=== PATIENT | female | born 1985 | race Caucasian/White ===

== ENCOUNTER 2020-07-18 00:31 | Emergency (ER) | payer OTHER, SELFPAY ==
[2020-07-18 00:34] VITALS: BP 154/91; PULSE 85; RESP 18; TEMP 36.4; O2SAT 98; BMI 33.5
[2020-07-18 00:55] LABS: MANUAL DIFF FLAG NO
[2020-07-18 00:56] LABS: Eosinophils Percent Auto 0.4 % (0-4); Hematocrit 38.7 % (37-47); Hemoglobin 12.6 g/dl (12.0-16.0); Imm Gran Abs Auto 0.01 X10*3/uL (0.00-0.03); Imm Gran Pct Auto 0.2 % (0.0-0.4); Lymphocytes Absolute Auto 0.7 X10*3/uL (1.2-4.9); Lymphocytes Percent Auto 14.4 % (20-40); Mean Corpuscular HGB Conc 32.6 g/dl (31.0-35.0); Mean Corpuscular Hemoglobin 29.8 pg (27.0-33.0); Mean Corpuscular Volume 91.5 fL (80-98); Mean Platelet Volume 9.7 fL (9.4-12.3); Monocytes Absolute Auto 0.3 X10*3/uL (0.1-1.2); Monocytes Percent Auto 5.3 % (2-11); Neutrophils Absolute Auto 3.9 X10*3/uL (2.0-8.3); Neutrophils Percent Auto 79.7 % (45-73); Platelet Count 303 X10*3/uL (160-400); Red Blood Count 4.23 X10*6/uL (4.20-5.50); Red Cell Distribution Width 14.9 % (11.0-16.0); White Blood Count 4.9 X10*3/uL (4.8-10.8)
[2020-07-18 01:24] LABS: Alanine Aminotransferase 21 U/L (0-31); Albumin Level 4.2 g/dL (3.5-5.0); Alkaline Phosphatase 97 U/L (39-117); Anion Gap 14 (12-20); Aspartate Amino Transferase 26 U/L (5-31); Bilirubin Total 0.7 mg/dL (0.0-1.0); Blood Urea Nitrogen 7 mg/dL (9-16); Calcium 8.8 mg/dL (8.4-10.2); Carbon Dioxide 20 mmol/L (22-29); Chloride 107 mmol/L (96-108); Creatinine Clr Calc Pharmacy 94.7; Estimated Glomerular Filt Rate > 60; Glucose Random 129 mg/dL (60-115); Lipase 35 U/L (8-78); Potassium 3.4 mmol/l (3.3-5.1); Sodium 138 mmol/L (135-145); Total Protein 7.5 g/dL (6.5-8.0)
--- NOTE | 2020-07-18 03:17 | ED_ITS ---
HPI - Female Genitourinary General Chief complaint: Urogenital-Female Stated complaint: Kidney Pain Time Seen by Provider: 07/18/20 02:06 Source: patient Mode of arrival: ambulatory History of Present Illness HPI Narrative: This is a 35-year-old female who states that she has had lower back pain that radiates anteriorly in a bilateral distribution and comes across the tops of her legs. She denies any fevers, chills but states that she has had diarrhea as well as some nausea and vomiting. Otherwise, she states that she has been unable to urinate since yesterday. She otherwise denies any trauma. Related Data Allergies Allergy/AdvReac Type Severity Reaction Status Date / Time osborne [CHERRIES] Allergy Intermediate UNKNOWN Verified 07/18/20 00:33 red dye [RED DYE] AdvReac Mild DIARRHEA Verified 07/18/20 00:33 Review of Systems Review of Systems: Pertinent positives and negatives as stated in the HPI 10 point review of systems otherwise negative. PMFSH Past Medical History Source: nursing notes reviewed Medical History ADHD Bipolar 1 disorder Depression Hypertension Surgical History Hx of cholecystectomy Status post cholecystectomy Social History Social History Smoking Status: Never smoker Use of substances other than those prescribed or required for medical reasons: No Advance Directives: No Advance Directives Information Provided: No Physical Exam Vital Signs: Vital Signs: Last Vital Signs Temp 97.5 F 07/18/20 07:08 Pulse 75 07/18/20 07:08 Resp 20 07/18/20 07:08 BP 134/87 07/18/20 07:08 Pulse Ox 99 07/18/20 07:08 Body Mass Index 33.5 VITAL SIGNS: Reviewed. GENERAL: Well developed, well nourished, in no acute distress. HEAD: Normocephalic/atraumatic, EYES: PERRLA, EOMI intact without pain, no nystagmus/pallor/icterus noted EARS: Ext canals without abnormality, TMs non-bulging and non-erythematous NOSE: Nares patent bilateral OROPHARYNX: no oral lesions noted, posterior pharynx clear and non-erythematous without noted tonsillar enlargement/erythema/exudates NECK: Supple, no adenopathy LUNGS: Normal breath sounds. No adventitious sounds or accessory muscle use. SpO2<98> CARDIOVASCULAR: Regular rate and rhythm without noted murmurs, no JVD or lower extremity edema. ABDOMEN: Soft, mild tenderness on the flanks but no rebound, non-distended with bowel sounds. No rigidity. No guarding. No palpable masses or hernias noted NEUROLOGIC: Alert and oriented x 4. Course Course Course Narrative: This is a 35-year-old female with history and clinical presentation suggestive of possible renal colic versus UTI but doubt appendicitis or diverticulitis. On review of all investigations there are no acute findings suggesting systemic infection or anemia and although urinalysis shows the presence of blood patient is currently on her menstrual cycle and CT scan is negative for any intra- abdominal pathologies. The results and findings were discussed with patient at bedside and she was discharged home in stable condition with presumptive acute on chronic lower back pain exacerbation. [facility] - Female Genitourinary Lab Data Result diagrams: 07/18/20 00:49 07/18/20 00:49 Labs: Lab Results 07/18/20 07/18/20 07/18/20 Range/Units 00:49 00:49 00:49 WBC 4.9 (4.8-10.8) X10*3/uL RBC 4.23 (4.20-5.50) X10*6/uL Hgb 12.6 (12.0-16.0) g/dl Hct 38.7 (37-47) % MCV 91.5 (80-98) fL MCH 29.8 (27.0-33.0) pg MCHC 32.6 (31.0-35.0) g/dl RDW 14.9 (11.0-16.0) % Plt Count 303 (160-400) X10*3/uL MPV 9.7 (9.4-12.3) fL Immature Gran % (Auto) 0.2 (0.0-0.4) % Neut % (Auto) 79.7 H (45-73) % Lymph % (Auto) 14.4 L (20-40) % [place] % (Auto) 5.3 (2-11) % Eos % (Auto) 0.4 (0-4) % Baso % (Auto) 0.0 (0-2) % Lymph # (Auto) 0.7 L (1.2-4.9) X10*3/uL [place] # (Auto) 0.3 (0.1-1.2) X10*3/uL Eos # (Auto) 0.0 (0.0-0.4) X10*3/uL Baso # (Auto) 0.0 (0.0-0.2) X10*3/uL Abs Immat Gran (auto) 0.01 (0.00-0.03) X10*3/uL Absolute Neuts (auto) 3.9 (2.0-8.3) X10*3/uL Absolute Nucleated RBC 0.000 (0.0-0.012) X10*3/uL Nucleated RBC % (auto) 0.0 (0.0-0.2) /100WBC Hold Blue Top SEE NOTE Sodium 138 (135-145) mmol/L Potassium 3.4 (3.3-5.1) mmol/l Chloride 107 (96-108) mmol/L Carbon Dioxide 20 L (22-29) mmol/L Anion Gap 14 (12-20) BUN 7 L (9-16) mg/dL Creatinine 0.86 (0.5-1.4) mg/dL Estim Creat Clear Calc 94.7 Estimated GFR > 60 Random Glucose 129 H (60-115) mg/dL Calcium 8.8 (8.4-10.2) mg/dL Total Bilirubin 0.7 (0.0-1.0) mg/dL AST 26 (5-31) U/L ALT 21 (0-31) U/L Alkaline Phosphatase 97 (39-117) U/L Total Protein 7.5 (6.5-8.0) g/dL Albumin 4.2 (3.5-5.0) g/dL Lipase 35 (8-78) U/L Beta HCG, Quant < 2 mIU/mL Urine Color Urine Appearance Urine pH (5.0-8.0) Ur Specific [place] (1.005-1.025) Urine Protein (NEG-TRACE) MG/DL Urine Glucose (UA) (NEG) MG/DL Urine Ketones (NEG) MG/DL Urine Blood (NEG) Urine Nitrite (NEG) Ur Leukocyte Esterase (NEG) Urine RBC (0) /HPF Urine WBC (0-4) /HPF Ur Squamous Epith Cells /LPF Urine Bacteria /LPF Urine Test (NEGATIVE) 07/18/20 Range/Units 06:14 WBC (4.8-10.8) X10*3/uL RBC (4.20-5.50) X10*6/uL Hgb (12.0-16.0) g/dl Hct (37-47) % MCV (80-98) fL MCH (27.0-33.0) pg MCHC (31.0-35.0) g/dl RDW (11.0-16.0) % Plt Count (160-400) X10*3/uL MPV (9.4-12.3) fL Immature Gran % (Auto) (0.0-0.4) % Neut % (Auto) (45-73) % Lymph % (Auto) (20-40) % [place] % (Auto) (2-11) % Eos % (Auto) (0-4) % Baso % (Auto) (0-2) % Lymph # (Auto) (1.2-4.9) X10*3/uL [place] # (Auto) (0.1-1.2) X10*3/uL Eos # (Auto) (0.0-0.4) X10*3/uL Baso # (Auto) (0.0-0.2) X10*3/uL Abs Immat Gran (auto) (0.00-0.03) X10*3/uL Absolute Neuts (auto) (2.0-8.3) X10*3/uL Absolute Nucleated RBC (0.0-0.012) X10*3/uL Nucleated RBC % (auto) (0.0-0.2) /100WBC Hold Blue Top Sodium (135-145) mmol/L Potassium (3.3-5.1) mmol/l Chloride (96-108) mmol/L Carbon Dioxide (22-29) mmol/L Anion Gap (12-20) BUN (9-16) mg/dL Creatinine (0.5-1.4) mg/dL Estim Creat Clear Calc Estimated GFR Random Glucose (60-115) mg/dL Calcium (8.4-10.2) mg/dL Total Bilirubin (0.0-1.0) mg/dL AST (5-31) U/L ALT (0-31) U/L Alkaline Phosphatase (39-117) U/L Total Protein (6.5-8.0) g/dL Albumin (3.5-5.0) g/dL Lipase (8-78) U/L Beta HCG, Quant mIU/mL Urine Color DARK YELLOW Urine Appearance HAZY Urine pH 7.0 (5.0-8.0) Ur Specific [place] 1.015 (1.005-1.025) Urine Protein 1+ H (NEG-TRACE) MG/DL Urine Glucose (UA) NEG (NEG) MG/DL Urine Ketones NEG (NEG) MG/DL Urine Blood 3+ H (NEG) Urine Nitrite NEG (NEG) Ur Leukocyte Esterase NEG (NEG) Urine RBC 30-49 H (0) /HPF Urine WBC 0-2 (0-4) /HPF Ur Squamous Epith Cells 1+ /LPF Urine Bacteria TRACE /LPF Urine Test NEGATIVE (NEGATIVE) Discharge Plan Discharge Clinical Impression: Back pain Qualifiers: Back pain location: low back pain Chronicity: acute Back pain laterality: bilateral Sciatica presence: with sciatica Sciatica laterality: bilateral sciatica Qualified Code(s): M54.42 - Lumbago with sciatica, left side Patient Disposition: Home, Self-Care Instructions: Lower Back Exercises (ED), Back Pain (ED), Lumbar Radiculopathy (ED) Additional Instructions: 1. Tylenol 1000 mg, orally, every 6 hours as needed for pain control. Do not exceed 4000 mg within 24 hours. 2. Ibuprofen 400 mg, orally with milk or food, every 6 hours as needed for pain control. You may take this medication with the Tylenol to increase pain control affect. 3. Lidocaine patch, these are available [id number] at every [employer], and apply to the area of maximal tenderness as directed on the outside packaging. 4. Increase fluid hydration especially with water. Referrals: Physician,None [Primary Care Provider] - 2 days (Re-evaluation of lower back pain)
[2020-07-18] MEDS: 0.9 % Sodium Chloride 1,000 ML 999 ML IV (05:00)
--- NOTE | 2020-07-18 05:00 | PC.NURSE ---
20G IV ACCESS ESTABLISHED IN LEFT AC. MEDICATED ORDERED. REPORTS 8 OUT OF 10 BACK PAIN RADIATING TO THE FRONT, BILATERALLY. PATIENT IS CALM/COOPERATIVE, DOES NOT APPEAR TO BE IN ACUTE DISTRESS. WILL CONTINUE TO MONITOR.
[2020-07-18] MEDS: ondansetron HCL 4 MG/2 ML VIAL IVPUSH (05:01)
[2020-07-18] MEDS: Ketorolac Tromethamine 15 MG/ML VIAL IVPUSH (05:01)
[2020-07-18 06:18] LABS: HCG Quantitative < 2 mIU/mL
--- NOTE | 2020-07-18 06:22 | CT_ITS ---
EXAMINATION: CT ABDOMEN AND PELVIS WITH CONTRAST CLINICAL INFORMATION: Lower abdominal pain COMPARISON: 03/05/2020 TECHNIQUE: Multidetector volumetric images were obtained from the superior aspect of the liver through the pubic symphysis following administration 85 mL of Omnipaque 350 intravenous contrast. Sagittal and coronal reformatted images were obtained on the technologist's workstation. Oral contrast: No This CT examination was performed using dose optimization techniques as appropriate, variously including the following: *Automated exposure control *Adjustment of mA and/or kV according to patient size (this includes techniques or standardized protocols for targeted exams where dose is matched to indication/reason for exam; i.e. extremities or head) *Use of iterative reconstruction technique DLP: 803 mGy-cm FINDINGS: LUNG BASES: The visualized lung bases are unremarkable. LIVER, GALLBLADDER, AND BILIARY TREE: The liver is normal in size, shape, and attenuation. No focal hepatic lesion or biliary ductal dilatation is present. Cholecystectomy. PANCREAS: Unremarkable. SPLEEN: Unremarkable. ADRENAL GLANDS: Unremarkable. KIDNEYS AND URETERS: The kidneys are normal in size, shape, and attenuation. No hydronephrosis, hydroureter, or calculi seen. No perinephric stranding. BLADDER: Decompressed with no gross abnormality. GASTROINTESTINAL TRACT: The stomach is unremarkable. Normal caliber small bowel. There is no obstruction. No colonic wall thickening or acute inflammatory change. Normal appendix. No free air. No free fluid. ABDOMINAL WALL: No significant hernia is appreciated. LYMPH NODES: Normal. VASCULAR: Unremarkable. PELVIC VISCERA: The uterus and adnexa are unremarkable. OSSEOUS STRUCTURES: No acute or suspicious osseous abnormality. Mild degenerative changes of the spine. Degenerative changes of both hips. CT/CT abdomen pelvis w con IMPRESSION: There are no acute findings of the abdomen or pelvis. No inflammatory changes. Normal appendix.
--- NOTE | 2020-07-18 06:28 | PC.NURSE ---
URINE SPECIMEN COLLECTED AND SENT TO LAB FOR ANALYSIS. AWAITING RESULTS.
[2020-07-18 06:31] LABS: Glucose Urine UA NEG (NEG); Leukocyte Esterase Urine NEG (NEG); Nitrite Urine NEG (NEG); Specific Gravity - Urine 1.015 (1.005-1.025); Urine Blood 3+ (NEG); Urine Ketones NEG (NEG); Urine Protein 1+ MG/DL (NEG-TRACE)
[2020-07-18 06:33] LABS: Appearance Urine HAZY; Color Urine DARK YELLOW
[2020-07-18 06:42] LABS: Bacteria Urine TRACE /LPF; RBC Urine 30-49 /HPF (0); Squamous Epithelial Cell Urine 1+ /LPF; WBC Urine 0-2 /HPF (0-4)
[2020-07-18] MEDS: iohexoL 350 MG/ML 100 ML INFUS..BTL 85 ML IV (06:44)
--- NOTE | 2020-07-18 06:49 | PC.NURSE ---
PATIENT RETURNED FROM CT SCAN. AWAITING RESULTS. REQUESTING WATER AT THIS TIME, AWARE THAT PATIENT IS NPO UNTIL RESULTS HAVE BEEN REVIEWED BY MD. ALSO REPORTS THAT PAIN IS UNCHANGED DESPITE BEING MEDICATED. WILL CONTINUE TO MONITOR.
[2020-07-18 06:52] LABS: UPreg QC Valid YES; Urine Pregnancy NEGATIVE (NEGATIVE)
[2020-07-18 07:08] VITALS: BP 134/87; PULSE 75; RESP 20; TEMP 36.4; O2SAT 99
[2020-07-18 08:36] VITALS: BP 151/96; PULSE 79; RESP 15; O2SAT 99
== END 2020-07-18 08:45 | disposition home or self-care (01) ==
PROVIDERS: Emergency Provider Student in an Organized Health Care Education/Training Program
DX: M54.42 Lumbago with sciatica, left side (principal); M54.41 Lumbago with sciatica, right side; I10 Essential (primary) hypertension
CPT/HCPCS: 36415; 51798; 74177; 80053; 81001; 81025; 83690; 84702; 85025; 96361; 96374; 96375; 99284; J1885; J2405; Q9967

== ENCOUNTER 2020-10-04 14:23 | Inpatient (IN) | payer OTHER, SELFPAY ==
--- NOTE | ~2020-10-04 | MR_ITS ---
EXAMINATION: MR ABDOMEN WITHOUT CONTRAST CLINICAL INFORMATION: Epigastric pain. Paraduodenal (groove) pancreatitis on recent CT. COMPARISON: CT abdomen and pelvis 10/04/2020, 07/18/2020, 03/05/2020. TECHNIQUE: MR abdomen is performed without gadolinium contrast. Exam performed using MRCP protocol with additional MRCP sequence and maximum intensity projection MIP images generated on the MR workstation and uploaded to PACS. FINDINGS: LUNG BASES: The visualized lung bases are unremarkable. LIVER, GALLBLADDER, AND BILIARY TREE: The liver is normal in size, smooth in contour, and normal in signal. No focal hepatic lesion or biliary ductal dilatation is present. There is mild decreased signal on out of phase imaging consistent with mild hepatic steatosis. There has been prior cholecystectomy. The common hepatic duct and common bile duct are normal in caliber and show no intraluminal filling defect, extrinsic compression, stricture, or displacement. There is smooth distal tapering of the common duct. PANCREAS: Normal in size and contour and signal. No pancreatic ductal distention. There is high signal in the groove between the descending duodenum and pancreatic head with some trace fluid in the right anterior pararenal retroperitoneal space consistent with recent CT. No interval loculated fluid collection. SPLEEN: Unremarkable. ADRENAL GLANDS: Unremarkable. KIDNEYS AND URETERS: The kidneys are normal in size and shape. No hydronephrosis. No perinephric stranding. GASTROINTESTINAL TRACT: No bowel obstruction. Duodenum shows no focal wall thickening. ABDOMINAL WALL: No significant hernia is appreciated. LYMPH NODES: No lymphadenopathy. VASCULAR: Unremarkable. OSSEOUS STRUCTURES: Marrow signal normal. MR/MR MRCP IMPRESSION: 1. Signal and fluid between descending duodenum and pancreatic head with extension into the right anterior pararenal retroperitoneal space consistent with recent CT, likely mild groove pancreatitis. 2. Prior cholecystectomy. No intrahepatic or extrahepatic ductal dilatation or choledocholithiasis. No pancreatic ductal distention.
--- NOTE | ~2020-10-04 | CT_ITS ---
EXAMINATION: CT ABDOMEN AND PELVIS WITH CONTRAST CLINICAL INFORMATION: Epigastric pain. Question of gallstone pancreatitis. COMPARISON: 07/18/2020 TECHNIQUE: Multidetector volumetric images were obtained from the superior aspect of the liver through the pubic symphysis following administration 85 mL of Omnipaque 350 intravenous contrast. Sagittal and coronal reformatted images were obtained on the technologist's workstation. Oral contrast: No This CT examination was performed using dose optimization techniques as appropriate, variously including the following: *Automated exposure control *Adjustment of mA and/or kV according to patient size (this includes techniques or standardized protocols for targeted exams where dose is matched to indication/reason for exam; i.e. extremities or head) *Use of iterative reconstruction technique DLP: 748 mGy-cm FINDINGS:c LUNG BASES: The visualized lung bases are unremarkable. LIVER, GALLBLADDER, AND BILIARY TREE: The liver is normal in size, shape, and attenuation. No focal hepatic lesion or biliary ductal dilatation is present. Common bile duct measures up to 7 mm, within normal limits status post cholecystectomy. The duct tapers smoothly to the ampulla. PANCREAS: There is mild fat stranding centered at the pancreaticoduodenal groove. Remainder the pancreas is unremarkable. No acute necrotic collection or peripancreatic fluid collections. SPLEEN: Unremarkable. ADRENAL GLANDS: Unremarkable. KIDNEYS AND URETERS: The kidneys are normal in size, shape, and attenuation. No hydronephrosis, hydroureter, or calculi seen. No perinephric stranding. BLADDER: Unremarkable. GASTROINTESTINAL TRACT: The small and large bowel are unremarkable. The appendix is unremarkable. ABDOMINAL WALL: No significant hernia is appreciated. LYMPH NODES: Normal. VASCULAR: Unremarkable. PELVIC VISCERA: Unremarkable. OSSEOUS STRUCTURES: Unremarkable. CT/CT abdomen pelvis w con IMPRESSION: * Mild paraduodenal (groove) pancreatitis. * No radiopaque stones within the biliary tree. * Cholecystectomy, with expected slight prominence of the common bile duct, which tapers smoothly to the ampulla.
[2020-10-04 15:12] VITALS: BP 142/87; PULSE 83; RESP 20; TEMP 36.7; O2SAT 100; BMI 32.4
[2020-10-04 16:00] VITALS: BP 142/100; PULSE 74; RESP 16; TEMP 37.1; O2SAT 99
[2020-10-04 16:22] LABS: MANUAL DIFF FLAG NO
[2020-10-04 16:27] LABS: Basophils Percent Auto 0.2 % (0-2); Eosinophils Percent Auto 0.7 % (0-4); Hematocrit 34.8 % (37-47); Hemoglobin 11.5 g/dl (12.0-16.0); Imm Gran Abs Auto 0.02 X10*3/uL (0.00-0.03); Imm Gran Pct Auto 0.5 % (0.0-0.4); Lymphocytes Absolute Auto 1.3 X10*3/uL (1.2-4.9); Lymphocytes Percent Auto 28.9 % (20-40); Mean Corpuscular Hemoglobin 31.3 pg (27.0-33.0); Mean Corpuscular Volume 94.8 fL (80-98); Mean Platelet Volume 9.8 fL (9.4-12.3); Monocytes Absolute Auto 0.2 X10*3/uL (0.1-1.2); Monocytes Percent Auto 4.8 % (2-11); Neutrophils Absolute Auto 2.8 X10*3/uL (2.0-8.3); Neutrophils Percent Auto 64.9 % (45-73); Platelet Count 249 X10*3/uL (160-400); Red Blood Count 3.67 X10*6/uL (4.20-5.50); Red Cell Distribution Width 16.3 % (11.0-16.0); White Blood Count 4.4 X10*3/uL (4.8-10.8)
[2020-10-04 16:52] LABS: Alanine Aminotransferase 81 U/L (0-31); Alkaline Phosphatase 116 U/L (39-117); Anion Gap 13 (12-20); Aspartate Amino Transferase 549 U/L (5-31); Blood Urea Nitrogen 9 mg/dL (9-16); Calcium 8.3 mg/dL (8.4-10.2); Carbon Dioxide 22 mmol/L (22-29); Chloride 105 mmol/L (96-108); Estimated Glomerular Filt Rate > 60; Glucose Random 108 mg/dL (60-115); Potassium 3.5 mmol/L (3.3-5.1); Sodium 136 mmol/L (135-145); Total Protein 7.2 g/dL (6.5-8.0)
[2020-10-04 18:03] LABS: Glucose Urine UA NEG (NEG); Leukocyte Esterase Urine NEG (NEG); Nitrite Urine NEG (NEG); Specific Gravity - Urine >= 1.030 (1.005-1.025); Urine Blood NEG (NEG); Urine Ketones NEG (NEG); Urine Protein TRACE MG/DL (NEG-TRACE)
[2020-10-04 18:06] LABS: Appearance Urine CLEAR; Color Urine DARK YELLOW
[2020-10-04 18:10] LABS: HCG Quantitative < 2 mIU/mL
[2020-10-04] MEDS: ondansetron HCL 4 MG/2 ML VIAL IVPUSH ×2 (18:16→21:33)
[2020-10-04] MEDS: Famotidine/PF 20 MG/2 ML VIAL IVPUSH (18:16)
[2020-10-04] MEDS: 0.9 % Sodium Chloride 1,000 ML 999 ML IV (18:17)
[2020-10-04 18:34] LABS: Lipase 94 U/L (8-78)
[2020-10-04 18:53] VITALS: BP 124/77; PULSE 73; RESP 16; O2SAT 100
[2020-10-04] MEDS: Morphine Sulfate 4 MG/ML CARTRIDGE IVPUSH ×2 (18:56→20:43)
--- NOTE | 2020-10-04 19:36 | ED_ITS ---
HPI - Abdominal Pain General Chief Complaint: Abdominal Pain Stated Complaint: STOMACH AND BACK PAIN Time Seen by Provider: 10/04/20 17:46 Source: patient Mode of arrival: ambulatory Limitations: no limitations History of Present Illness HPI narrative: Patient presents to ED for abdominal pain radiating to the back. Patient states pain in the upper gastric area with nausea and vomiting. Patient states no fever or chills. Patient states having symptoms for 2 days. MD elicited complaint: abdominal pain Related Data Allergies Allergy/AdvReac Type Severity Reaction Status Date / Time osborne [CHERRIES] Allergy Intermediate UNKNOWN Verified 07/18/20 00:33 red dye [RED DYE] AdvReac Mild DIARRHEA Verified 07/18/20 00:33 Review of Systems Review of Systems Yes all other systems are reviewed and are negative Constitutional: Reports as per HPI and Reports no additional constitutional complaints Eyes: Reports as per HPI and Reports no additional eye complaints Reports system reviewed and no additional complaints, except as documented and Reports as per HPI Cardiovascular: Reports as per HPI and Reports no additional cardiovascular complaints Respiratory: Reports as per HPI and Reports no additional respiratory complaints Gastrointestinal: Reports as per HPI, Reports no additional gastrointestinal complaints, Reports abdominal pain, Reports nausea and Reports vomiting Genitourinary: Reports no additional female genitourinary complaints and Reports as per HPI Musculoskeletal: Reports no additional musculoskeletal complaints and Reports as per HPI Reports system reviewed and no additional complaints, except as documented and Reports as per HPI Psychiatric: Reports no additional psychiatric complaints and Reports as per HPI Physical Exam Vital Signs: Vital Signs: Last Vital Signs Temp 97.9 F 10/04/20 20:23 Pulse 77 10/04/20 20:43 Resp 18 10/04/20 20:43 BP 158/81 H 10/04/20 20:43 Pulse Ox 98 10/04/20 20:43 Body Mass Index 32.4 Const: General: cooperative, healthy appearing, comfortable, no acute distress, well developed, alert, awake, Physically active and acute distress Orientation/consciousness: patient oriented x3 HENMT: Head: Yes normal to inspection, Yes No palpable skull fracture present, Yes normocephalic, Yes atraumatic, Yes abrasion, No Campbell's sign, No contusion, No cranial bruits, No hematoma, No laceration, No occipital foramen tenderness, No palpable skull fracture, No raccoon eyes, No scalp lesion, No scalp tend erness, No Temporal artery tenderness present and No periorbital ecchymosis Eyes: General: appearance normal, both eyes and all related structures Neck: Neck: Yes normal visual inspection, Yes full ROM, Yes no lymphadenopathy, Yes no meningeal signs, Yes trachea midline, Yes supple and No tender Chest: Chest palpation & inspection: normal inspection of the chest and normal palpation of entire chest wall Breast/axilla inspection: normal inspection of the breasts Resp: Effort & Inspection: normal respiratory effort and able to speak in c omplete sentences Auscultation: clear to auscultation bilaterally Cardio: Jugular venous distension: no JVD Heart sounds: S1 normal heart sound present and S2 normal heart sound present GI: Inspection: Yes normal to inspection Palpation (GI): Soft to palpation, not firm, Tenderness to palpation present (GI) in the epigastrum, no guarding and not rigid : General: No CVA tenderness and Yes no CVA tenderness Back/Spine/Pelvis: Back: no CVA tenderness, No CVA tenderness and No back tenderness Skin: General skin exam: no rashes or lesions noted and elasticity normal Neuro: General: patient oriented x3, no meningeal signs and CN's II-XI intact bilaterally Cranial nerves: Yes CN's II-XII intact bilaterally Extrem: General: Yes normal to inspection and Yes full ROM Psych: Appearance: grossly normal, well kempt and not disheveled Course Course Course Narrative: Patient will have labs evaluate for possible gallstones/pancreatitis. Patient have fluids and Zofran and pain medication. Reevaluation(s) Reevaluation #1: Labs show elevated liver and lipase. Will send patient for CT scan to evaluate for possible gallstone pancreatitis. Patient given morphine for pain Reevaluation #2: CT scan shows pancreatitis. Patient's pain did not improve after 8 mg of morphine. Discussed case with hospitalist who accepted the case for patient to be admitted for pain control due to pancreatitis MDM - Abdominal Pain MDM Narrative Medical decision making narrative: Pancreatitis Lab Data Result diagrams: 10/04/20 16:15 10/04/20 16:15 Labs: Lab Results 10/04/20 10/04/20 10/04/20 Range/Units 16:15 16:15 16:15 WBC 4.4 L (4.8-10.8) X10*3/uL RBC 3.67 L (4.20-5.50) X10*6/uL Hgb 11.5 L (12.0-16.0) g/dl Hct 34.8 L (37-47) % MCV 94.8 (80-98) fL MCH 31.3 (27.0-33.0) pg MCHC 33.0 (31.0-35.0) g/dl RDW 16.3 H (11.0-16.0) % Plt Count 249 (160-400) X10*3/uL MPV 9.8 (9.4-12.3) fL Immature Gran % (Auto) 0.5 H (0.0-0.4) % Neut % (Auto) 64.9 (45-73) % Lymph % (Auto) 28.9 (20-40) % [place] % (Auto) 4.8 (2-11) % Eos % (Auto) 0.7 (0-4) % Baso % (Auto) 0.2 (0-2) % Lymph # (Auto) 1.3 (1.2-4.9) X10*3/uL [place] # (Auto) 0.2 (0.1-1.2) X10*3/uL Eos # (Auto) 0.0 (0.0-0.4) X10*3/uL Baso # (Auto) 0.0 (0.0-0.2) X10*3/uL Abs Immat Gran (auto) 0.02 (0.00-0.03) X10*3/uL Absolute Neuts (auto) 2.8 (2.0-8.3) X10*3/uL Absolute Nucleated RBC 0.000 (0.0-0.012) X10*3/uL Nucleated RBC % (auto) 0.0 (0.0-0.2) /100WBC Hold Blue Top SEE NOTE Sodium 136 (135-145) mmol/L Potassium 3.5 (3.3-5.1) mmol/L Chloride 105 (96-108) mmol/L Carbon Dioxide 22 (22-29) mmol/L Anion Gap 13 (12-20) BUN 9 (9-16) mg/dL Creatinine 0.77 (0.5-1.4) mg/dL Estim Creat Clear Calc 108.0 Estimated GFR > 60 Random Glucose 108 (60-115) mg/dL Calcium 8.3 L (8.4-10.2) mg/dL Total Bilirubin 1.0 (0.0-1.0) mg/dL AST 549 H (5-31) U/L ALT 81 H (0-31) U/L Alkaline Phosphatase 116 (39-117) U/L Total Protein 7.2 (6.5-8.0) g/dL Albumin 4.0 (3.5-5.0) g/dL Lipase 94 H (8-78) U/L Beta HCG, Quant < 2 mIU/mL Urine Color Urine Appearance Urine pH (5.0-8.0) Ur Specific [place] (1.005-1.025) Urine Protein (NEG-TRACE) MG/DL Urine Glucose (UA) (NEG) MG/DL Urine Ketones (NEG) MG/DL Urine Blood (NEG) Urine Nitrite (NEG) Ur Leukocyte Esterase (NEG) 10/04/20 Range/Units 17:53 WBC (4.8-10.8) X10*3/uL RBC (4.20-5.50) X10*6/uL Hgb (12.0-16.0) g/dl Hct (37-47) % MCV (80-98) fL MCH (27.0-33.0) pg MCHC (31.0-35.0) g/dl RDW (11.0-16.0) % Plt Count (160-400) X10*3/uL MPV (9.4-12.3) fL Immature Gran % (Auto) (0.0-0.4) % Neut % (Auto) (45-73) % Lymph % (Auto) (20-40) % [place] % (Auto) (2-11) % Eos % (Auto) (0-4) % Baso % (Auto) (0-2) % Lymph # (Auto) (1.2-4.9) X10*3/uL [place] # (Auto) (0.1-1.2) X10*3/uL Eos # (Auto) (0.0-0.4) X10*3/uL Baso # (Auto) (0.0-0.2) X10*3/uL Abs Immat Gran (auto) (0.00-0.03) X10*3/uL Absolute Neuts (auto) (2.0-8.3) X10*3/uL Absolute Nucleated RBC (0.0-0.012) X10*3/uL Nucleated RBC % (auto) (0.0-0.2) /100WBC Hold Blue Top Sodium (135-145) mmol/L Potassium (3.3-5.1) mmol/L Chloride (96-108) mmol/L Carbon Dioxide (22-29) mmol/L Anion Gap (12-20) BUN (9-16) mg/dL Creatinine (0.5-1.4) mg/dL Estim Creat Clear Calc Estimated GFR Random Glucose (60-115) mg/dL Calcium (8.4-10.2) mg/dL Total Bilirubin (0.0-1.0) mg/dL AST (5-31) U/L ALT (0-31) U/L Alkaline Phosphatase (39-117) U/L Total Protein (6.5-8.0) g/dL Albumin (3.5-5.0) g/dL Lipase (8-78) U/L Beta HCG, Quant mIU/mL Urine Color DARK YELLOW Urine Appearance CLEAR Urine pH 6.0 (5.0-8.0) Ur Specific [place] >= 1.030 H (1.005-1.025) Urine Protein TRACE (NEG-TRACE) MG/DL Urine Glucose (UA) NEG (NEG) MG/DL Urine Ketones NEG (NEG) MG/DL Urine Blood NEG (NEG) Urine Nitrite NEG (NEG) Ur Leukocyte Esterase NEG (NEG) Discharge Plan Discharge Clinical Impression: Pancreatitis Patient Disposition: Admitted As Inpatient [facility] Past Medical History Medical History ADHD Bipolar 1 disorder Depression Hypertension Surgical History Hx of cholecystectomy Status post cholecystectomy Social History Social History Smoking Status: Former smoker Use of substances other than those prescribed or required for medical reasons: No Advance Directives: No Advance Directives Information Provided: No
[2020-10-04 20:23] VITALS: BP 134/78; PULSE 78; RESP 18; TEMP 36.6; O2SAT 100
[2020-10-04 20:43] VITALS: BP 158/81; PULSE 77; RESP 18; O2SAT 98
--- NOTE | 2020-10-04 21:30 | PM.IMHP ---
History of Present Illness Date of Service: 10/04/20 Chief Complaint: epigastric pain 35 female with past medical history of anxiety, depression, bipolar, ADHD, hypertension, history of cholecystectomy presented to the hospital with a chief complaint upper abdominal pain past 2 days associated nausea and vomiting. Abdominal pain was in nature. Denies any fever chills cough. Denies any diarrhea. Denies any chest pain palpitations lightheadedness dizziness. Denies any new medications. Denies alcohol use. Review of all other systems is negative except mentioned above ER course: Per ER team patient noted to have epigastric tenderness, CT scan showed mildly dilated CBD, post cholecystectomy changes, pancreatitis. Given pain medications. Admitted to the hospital for further management. [facility] Medical History ADHD Bipolar 1 disorder Depression Hypertension Surgical History Hx of cholecystectomy Status post cholecystectomy Social History Household Members: Significant Other and Children Housing: Apartment Do you presently have visiting nurse or other home services: No Smoking Status: Former smoker Smoked in Last 30 Days: No Patient Interested in Nicotine Replacement: No Patient Given Instructions on How to Stop Smoking: No Second Hand Smoke Exposure: No Use of substances other than those prescribed or required for medical reasons: No Currently Displaying Signs/Symptoms of Drug Intoxication Withdrawal: No Have you been hit, kicked, punched, or otherwise hurt by someone within the past year? If so, by whom?: No Do you feel safe in your current relationship?: Yes Is there a partner from a previous relationship who is making you feel unsafe now?: No Are you made to feel afraid or neglected: No Advance Directives: No Advance Directives Information Provided: No Do you have thoughts of harming others: None Do you have a plan to hurt others: No Plan Recently lost weight without trying: No Meds Allergies Allergy/AdvReac Type Severity Reaction Status Date / Time osborne [CHERRIES] Allergy Intermediate UNKNOWN Verified 07/18/20 00:33 red dye [RED DYE] AdvReac Mild DIARRHEA Verified 07/18/20 00:33 Active Medications: Current Medications Generic Name Dose Route Start Last Admin Trade Name Freq PRN Reason Stop Dose Admin Pharmacy Consult 1 each 10/04/20 21:29 Consult Rx Perform Med Rec MISCELLANE ONCE PRN Consult order Physical Exam Vital Signs and Narrative: Vital Signs: Last Vital Signs Temp 97.9 F 10/04/20 20:23 Pulse 77 10/04/20 20:43 Resp 18 10/04/20 20:43 BP 158/81 H 10/04/20 20:43 Pulse Ox 98 10/04/20 20:43 Body Mass Index 32.4 Gen: Appears be in mild distress secondary to pain HEENT: NCAT, SERGIO, EOMI, Moist mucosa. Pulmonary: Vesicular breath sounds, fair air entry; no wheezing CVS: Normal S1-S2 Abdomen: BS+, Soft, Nontender Extremities: Warm well perfused; PPP Neuro: Alert and awake. grossly nonfocal Results Labs CBC and Chem 7: 10/06/20 04:57 10/07/20 06:53 Labs: Laboratory Results - last 24 hr 10/04/20 10/04/20 10/04/20 16:15 16:15 16:15 MCV 94.8 MCH 31.3 MCHC 33.0 RDW 16.3 H Plt Count 249 MPV 9.8 Immature Gran % (Auto) 0.5 H Neut % (Auto) 64.9 Lymph % (Auto) 28.9 [place] % (Auto) 4.8 Eos % (Auto) 0.7 Baso % (Auto) 0.2 Lymph # (Auto) 1.3 [place] # (Auto) 0.2 Eos # (Auto) 0.0 Baso # (Auto) 0.0 Abs Immat Gran (auto) 0.02 Absolute Neuts (auto) 2.8 Absolute Nucleated RBC 0.000 Nucleated RBC % (auto) 0.0 Hold Blue Top SEE NOTE Anion Gap 13 Estim Creat Clear Calc 108.0 Estimated GFR > 60 Random Glucose 108 Calcium 8.3 L Total Bilirubin 1.0 AST 549 H ALT 81 H Alkaline Phosphatase 116 Total Protein 7.2 Albumin 4.0 Lipase 94 H Beta HCG, Quant < 2 Urine Color Urine Appearance Urine pH Ur Specific [place] Urine Protein Urine Glucose (UA) Urine Ketones Urine Blood Urine Nitrite Ur Leukocyte Esterase 10/04/20 17:53 MCV MCH MCHC RDW Plt Count MPV Immature Gran % (Auto) Neut % (Auto) Lymph % (Auto) [place] % (Auto) Eos % (Auto) Baso % (Auto) Lymph # (Auto) [place] # (Auto) Eos # (Auto) Baso # (Auto) Abs Immat Gran (auto) Absolute Neuts (auto) Absolute Nucleated RBC Nucleated RBC % (auto) Hold Blue Top Anion Gap Estim Creat Clear Calc Estimated GFR Random Glucose Calcium Total Bilirubin AST ALT Alkaline Phosphatase Total Protein Albumin Lipase Beta HCG, Quant Urine Color DARK YELLOW Urine Appearance CLEAR Urine pH 6.0 Ur Specific [place] >= 1.030 H Urine Protein TRACE Urine Glucose (UA) NEG Urine Ketones NEG Urine Blood NEG Urine Nitrite NEG Ur Leukocyte Esterase NEG Imaging Radiologist's Impressions: Impressions Abdomen/Pelvis CT 10/04/20 18:45 IMPRESSION: * Mild paraduodenal (groove) pancreatitis. * No radiopaque stones within the biliary tree. * Cholecystectomy, with expected slight prominence of the common bile duct, which tapers smoothly to the ampulla. Assessment and Plan (1) Pancreatitis: Status: Resolved 35-year-old female with a past medical history of anxiety, depression, ADHD, bipolar presented to the hospital with a chief complaint of abdominal pain. Noted to have pancreatitis. Acute pancreatitis: Unclear etiology. Patient denies any recent new medications. Denies alcohol use. CT scan showed no gallstones. Patient had a history of a cholecystectomy. CBD mildly dilated. Pain control IV fluids NPO Transaminitis: Will also check acute hepatitis panel; CT findings as mentioned above. GI consult for further recommendations. Hypertension: Patient currently denies any medications. Also added by the pain. Will continue to monitor for now. If not improving will consider antihypertensives eventually Nausea/vomiting: Supportive care. IV fluids. Zofran p.r.n.. Home medications: Patient was on lithium, Adderall, trazodone but reports has not been taking for the past 9 months. DVT prophylaxis: Subcu heparin Code status: Full code
[2020-10-04 22:00] LABS: COVID-19 Test Negative (Negative)
[2020-10-04 22:18] VITALS: BP 130/81; PULSE 77; RESP 16; TEMP 36.7; O2SAT 98
[2020-10-04] MEDS: HYDROmorphone HCl 0.5 MG/0.5 ML SYRINGE IVPUSH (22:37)
[2020-10-04] MEDS: Dextrose 5 % and 0.45 % NaCl 1,000 ML 100 ML IVCONT (22:38)
--- NOTE | 2020-10-05 00:28 | PC.NURSE ---
Pt requesting pain medication and food. Diet upgraded to clear liquid diet by hospitalist. This RN spoke with hospitalist regarding patient's request for pain medication, and states that she can be medicated at 2am for pain, as ordered. Dilaudid 0.5mg to be given Q4H for pain management, no additional pain medications to be given. Pt given green jell-o, and cranberry juice for clear-liquid diet, okayed by hospitalist.
[2020-10-05] MEDS: Heparin Sodium,Porcine 5,000 UNIT/ML VIAL 5000 UNIT SUBCUT ×4 (00:54→21:05)
[2020-10-05] MEDS: 0.9 % Sodium Chloride Flush 3 ML SYRINGE IVFLUSH ×2 (00:55→16:45)
[2020-10-05] MEDS: ondansetron HCL 4 MG/2 ML VIAL IVPUSH ×3 (02:12→14:38)
[2020-10-05] MEDS: HYDROmorphone HCl 0.5 MG/0.5 ML SYRINGE IVPUSH ×5 (02:12→19:41)
[2020-10-05 06:28] VITALS: RESP 18
[2020-10-05 06:29] LABS: MANUAL DIFF FLAG NO
--- NOTE | 2020-10-05 06:39 | PC.NURSE ---
Patient's abdomen appears to be more distended compared to earlier this shift. Pt medicated with Dilaudid 0.5mg Q4H for pain. Hospitalist notified regarding assessment changes and encouraged to see patient for re-evaluation and possible GI consult. Plan for evaluation later this shift. Will continue to monitor.
[2020-10-05 06:48] LABS: Basophils Percent Auto 0.2 % (0-2); Eosinophils Percent Auto 0.5 % (0-4); Hematocrit 31.9 % (37-47); Hemoglobin 10.3 g/dl (12.0-16.0); Imm Gran Abs Auto 0.02 X10*3/uL (0.00-0.03); Imm Gran Pct Auto 0.4 % (0.0-0.4); Lymphocytes Absolute Auto 1.3 X10*3/uL (1.2-4.9); Lymphocytes Percent Auto 23.2 % (20-40); Mean Corpuscular HGB Conc 32.3 g/dl (31.0-35.0); Mean Corpuscular Hemoglobin 30.7 pg (27.0-33.0); Mean Corpuscular Volume 95.2 fL (80-98); Mean Platelet Volume 10.1 fL (9.4-12.3); Monocytes Absolute Auto 0.2 X10*3/uL (0.1-1.2); Monocytes Percent Auto 4.3 % (2-11); Neutrophils Percent Auto 71.4 % (45-73); Platelet Count 196 X10*3/uL (160-400); Red Blood Count 3.35 X10*6/uL (4.20-5.50); White Blood Count 5.6 X10*3/uL (4.8-10.8)
[2020-10-05 07:06] LABS: Alanine Aminotransferase 54 U/L (0-31); Albumin Level 3.4 g/dL (3.5-5.0); Alkaline Phosphatase 103 U/L (39-117); Aspartate Amino Transferase 220 U/L (5-31); Bilirubin Direct 0.7 mg/dL (0.0-0.5); Bilirubin Total 1.9 mg/dL (0.0-1.0); Cholesterol 142 mg/dL; HDL Cholesterol 57 mg/dL; LDL Cholesterol Calculated 34 mg/dl; Total Protein 6.1 g/dL (6.5-8.0); Triglycerides 259 mg/dL
[2020-10-05 07:13] LABS: Anion Gap 10 (12-20); Blood Urea Nitrogen 7 mg/dL (9-16); Carbon Dioxide 26 mmol/L (22-29); Chloride 105 mmol/L (96-108); Creatinine Clr Calc Pharmacy 102.7; Estimated Glomerular Filt Rate > 60; Glucose Random 103 mg/dL (60-115); Potassium 3.3 mmol/L (3.3-5.1); Sodium 138 mmol/L (135-145)
[2020-10-05 07:23] LABS: Calcium 7.7 mg/dL (8.4-10.2)
[2020-10-05 08:00] VITALS: BP 142/90; PULSE 78; RESP 16; TEMP 36.2; O2SAT 99
[2020-10-05] MEDS: Dextrose 5 % and 0.45 % NaCl 1,000 ML 100 ML IVCONT (08:26)
--- NOTE | 2020-10-05 09:54 | MHC.CM.PN ---
met with pt who is independent cm i ntervention is not indicated pt has own transportaion home
--- NOTE | 2020-10-05 14:17 | P.PNIM_ITS ---
Subjective Subjective Date of Service: 10/05/20 Interval History: Patient seen and examined at bedside patient was reporting abdominal pain Constitutional Constitutional: Reports as per HPI and Reports no additional constitutional complaints Eyes Eyes: Reports as per HPI and Reports no additional eye complaints ENT Ears, Nose, Mouth, and Throat: Reports system reviewed and no additional complaints, except as documented and Reports as per HPI Cardiovascular Cardiovascular: Reports as per HPI and Reports no additional cardiovascular complaints Respiratory Respiratory: Reports as per HPI and Reports no additional respiratory complaints Gastrointestinal Gastrointestinal: Reports as per HPI, Reports no additional gastrointestinal complaints, Reports abdominal pain, Reports nausea and Reports vomiting Musculoskeletal Musculoskeletal: Reports no additional musculoskeletal complaints and Reports as per HPI Neurologic Neurologic: Reports system reviewed and no additional complaints, except as documented and Reports as per HPI Psychiatric Psychiatric: Reports no additional psychiatric complaints and Reports as per HPI Physical Exam Vital Signs: Vital Signs: Last Vital Signs Temp 97.1 F 10/05/20 08:00 Pulse 78 10/05/20 08:00 Resp 16 10/05/20 08:00 BP 142/90 H 10/05/20 08:00 Pulse Ox 99 10/05/20 08:00 Body Mass Index 32.4 Const: General: cooperative, healthy appearing, comfortable, no acute distress, well developed, alert, awake, Physically active and acute distress Orientation/consciousness: patient oriented x3 HENMT: Head: Yes normal to inspection, Yes No palpable skull fracture present, Yes normocephalic, Yes atraumatic, Yes abrasion, No Campbell's sign, No contusion, No cranial bruits, No hematoma, No laceration, No occipital foramen tenderness, No palpable skull fracture, No raccoon eyes, No scalp lesion, No scalp tenderness, No Temporal artery tenderness present and No periorbital ecchymosis Eyes: General: appearance normal, both eyes and all related structures Neck: Neck: Yes normal visual inspection, Yes full ROM, Yes no lymphad enopathy, Yes no meningeal signs, Yes trachea midline, Yes supple and No tender Chest: Chest palpation & inspection: normal inspection of the chest and normal palpation of entire chest wall Breast/axilla inspection: normal inspection of the breasts Resp: Effort & Inspection: normal respiratory effort and able to speak in complete sentences Auscultation: clear to auscultation bilaterally Cardio: Jugular venous distension: no JVD Heart sounds: S1 normal heart sound present and S2 normal heart sound present GI: Inspection: Yes normal to inspection Palpation (GI): Soft to palpation, not firm, Tenderness to palpation present (GI) in the epigastrum, no guarding and not rigid : General: No CVA tenderness and Yes no CVA tenderness Back/Spine/Pelvis: Back: no CVA tenderness, No CVA tenderness and No back tenderness Skin: General skin exam: no rashes or lesions noted and elasticity normal Neuro: General: patient oriented x3, no meningeal signs and CN's II-XI intact bilaterally Cranial nerves: Yes CN's II-XII intact bilaterally Extrem: General: Yes normal to inspection and Yes full ROM Psych: Appearance: grossly normal, well kempt and not disheveled Objective Data Current Medications Generic Name Dose Route Start Last Admin Trade Name Freq PRN Reason Stop Dose Admin Heparin Sodium (Porcine) 5,000 unit 10/04/20 22:00 10/05/20 08:43 Heparin Sodium,Porcine 5,000 Unit/Ml Vial SUBCUT 5,000 unit Q8H XUAN Administration Hydromorphone HCl 0.5 mg 10/04/20 21:39 10/05/20 10:30 Hydromorphone Hcl 0.5 Mg/0.5 Ml Syringe IVPUSH 0.5 mg Q4H PRN Administration Pain, Severe (Pain Scale 7-10) Dextrose/Sodium Chloride 1,000 mls @ 100 mls/hr 10/04/20 21:45 10/05/20 08:26 D51/2ns IVCONT 100 mls/hr .Q10H XUAN Administration Ondansetron HCl 4 mg 10/04/20 21:39 10/05/20 06:28 Ondansetron Hcl 4 Mg/2 Ml Vial IVPUSH 4 mg Q8H PRN Administration Nausea and Vomiting Pharmacy Consult 1 each 10/04/20 21:29 Consult Rx Perform Med Rec MISCELLANE ONCE PRN Consult order Sodium Chloride 3 ml 10/05/20 00:00 10/05/20 08:26 0.9 % Sodium Chloride Flush 3 Ml Syringe IVFLUSH Not Given QSHIFT [facility] Labs CBC & Chem 7: 10/05/20 06:19 10/05/20 06:19 Assessment and Plan (1) Pancreatitis: Status: Acute Assessment and Plan: 35-year-old female with a past medical history of anxiety, depression, ADHD, bipolar presented to the hospital with a chief complaint of abdominal pain. Noted to have pancreatitis. Acute pancreatitis etiology not clear CT abdomen shows pancreatitis and normal CBD MRCP shows no CBD dilatation continue IV fluid continue pain management Gi consult pending will check triglyceride level Transaminitis trending down MRCP shows no CBD dilatation will check hepatitis serology monitor LFTs History of mood disorder Patient was on lithium, Adderall, trazodone but reports has not been taking for the past 9 months. as was lactating DVT prophylaxis: Subcu heparin Code status: Full code
[2020-10-05 15:26] VITALS: BP 140/96; PULSE 63; RESP 19; TEMP 36.2; O2SAT 96
--- NOTE | 2020-10-05 17:15 | PM.EVENT ---
Event Note Date of Service: 10/05/20 Event Note: GI Consult-Full note dictated-Hx via patient and EMR. Imp: Apparent acute mild pancreatitis with elevated LFT's of unclear etiology. She had normal LFT's in 06/2020. She is s/p CCY and denies EtoH. Her w/u here has been negative with normal TG's and normal MRCP that was negative for CBD stones nor pancreatic duct abnormalities. Diff dx: Possible passage of a small CBD stone/sludge, R/O autoimmune pancreatitis, treat any component of acid peptic disease. Rec: Check IgG levels with subtypes, PPI, F/U Labs in AM, Supportive care, Advance diet as tolerated. D/W patient. Thanks
[2020-10-05] MEDS: Omeprazole 20 MG CAPSULE.DR PO (17:49)
[2020-10-05 19:10] VITALS: BP 143/92; PULSE 77; RESP 19; TEMP 36.4; O2SAT 99
--- NOTE | 2020-10-05 22:39 | CONS_ITS ---
DATE OF SERVICE: 10/05/2020 REASON FOR CONSULTATION: Abdominal pain and pancreatitis. HISTORY OF PRESENT ILLNESS: The patient is a 35-year-old female, who describes that she was in her usual state of health up until about 1 week ago. Since that time, she has been having fairly frequent and persistent episodes of upper abdominal pain. She describes episodes of vomiting, diarrhea, and abdominal bloating with that. Prior to that, she reports that she had been feeling fairly well, although does have occasional abdominal cramping and discomfort. Due to the persistent symptoms and the severity of the pain, she came to the ER for evaluation and was admitted. She was found have a slight elevation of her pancreatic enzymes and some elevation of the liver enzymes. The patient denies any alcohol use presently nor in the past. She has not been on any new medications other than using some ibuprofen for the recent abdominal pain. She does not use any prescription drugs. She denies any family history of pancreatitis other than in her father whom she reports was an alcoholic. She denies any known family history of liver disease. Since being admitted here, she has been tolerating clear liquids. She does report that she is still having some abdominal pain and bloating, but does feel better than yesterday. She denies any history of ulcer disease. She denies any chronic heartburn or dysphagia. Her bowel movements have been fairly regular and without any signs of melena nor hematochezia. She denies any jaundice. She does describe having had a cholecystectomy about 10 months ago for the gallstones. That was done by Dr. Hernández in October of 2019. MEDICATIONS: Medications at home: She reports that she was only using ibuprofen recently. She was not using any prescription medication. Medications here in the hospital include: IV famotidine, subcu heparin, hydromorphone p.r.n., omeprazole, Zofran. SOCIAL HISTORY: She denies tobacco, drug, or alcohol use. She reports that she is presently breast-feeding her [id number] daughter. She does not smoke. REVIEW OF SYSTEMS: CONSTITUTIONAL: She had been feeling well up until about a week ago. SKIN: Without rash nor pruritus. PULMONARY: No coughing. No hemoptysis. GI: As above. URINARY: No dysuria. No hematuria. FAMILY HISTORY: As above. PHYSICAL EXAMINATION: GENERAL: The patient is a pleasant, alert, comfortable-appearing female, in no distress. She has been afebrile. SKIN: Warm and dry. Nonjaundiced. HEENT: Anicteric sclerae. CHEST: Clear. CARDIAC: Normal S1, S2. ABDOMEN: Soft. Normal bowel sounds. Nondistended. She does have some mild epigastric tenderness to palpation. There is no mass or rebound. EXTREMITIES: Without edema. LABORATORIES: Normal chemistries. BUN 9, creatinine 0.8. On admission, her AST was high at and today is , ALT was 81 and today is 54. Total bilirubin was 1.0 yesterday and 1.9 today. Alkaline phosphatase has been normal. Her lipase was 94 yesterday. She did have a CAT scan of the abdomen and pelvis on admission describing some mild fat stranding of the pancreas, but without any sign of necrosis nor cyst. The common bile duct measured 7 mm and there was no obvious stone. She did have an MRCP today describing a normal-appearing biliary tree and without any sign of common duct stones. The pancreas appeared normal other than mild changes of pancreatitis. Her CAT scan of the abdomen done yesterday describes similar changes and no worrisome findings in regard to the pancreas. IMPRESSION: The patient is a 35-year-old generally healthy female presenting with what appears to be an acute case of pancreatitis based on the imaging studies and slightly elevated lipase level. The etiology of that is not clear given no alcohol history, status post cholecystectomy, no suspicious medications, and no family history of pancreatitis. The lipase was just minimally elevated, but the CAT scan and MRI do support a diagnosis of some pancreatitis based on the imaging studies. At this point, she appears well and does not appear toxic nor having any severe sequelae of the pancreatitis. At this point, I would follow laboratories closely, continue supportive care, and advance diet as her symptoms allow it. In regard to the etiology of the pancreatitis, this could represent passage of a small common bile duct stone and/or sludge given the elevated LFTs as well. I would also check IgG subtyping to rule out autoimmune pancreatitis. I would also keep her on acid suppression to treat any component of an acid peptic disease. At this point, I do not think any diagnostic interventions required otherwise such as ERCP. I will continue supportive care and follow up laboratories. This has been discussed with the patient in detail and she is comfortable with this plan. Thank you for this consultation. MD TAMARA Peacock/LALA / [id number]
[2020-10-05 23:47] VITALS: BP 143/91; PULSE 72; RESP 18; TEMP 36.9; O2SAT 98
[2020-10-06] VITALS (9 sets, daily range): BP systolic 125–142; BP diastolic 66–99; PULSE 47–87; RESP 18–20; TEMP 36.4–37; O2SAT 96–100
[2020-10-06] MEDS: Dextrose 5 % and 0.45 % NaCl 1,000 ML 100 ML IVCONT ×3 (01:17→20:25)
[2020-10-06] MEDS: HYDROmorphone HCl 0.5 MG/0.5 ML SYRINGE IVPUSH ×4 (02:33→19:41)
[2020-10-06] MEDS: ondansetron HCL 4 MG/2 ML VIAL IVPUSH ×3 (02:33→19:48)
[2020-10-06 05:19] LABS: MANUAL DIFF FLAG NO
[2020-10-06 05:22] LABS: Basophils Percent Auto 0.2 % (0-2); Eosinophils Absolute Auto 0.1 X10*3/uL (0.0-0.4); Hematocrit 30.8 % (37-47); Hemoglobin 10.2 g/dl (12.0-16.0); Imm Gran Abs Auto 0.01 X10*3/uL (0.00-0.03); Imm Gran Pct Auto 0.2 % (0.0-0.4); Lymphocytes Absolute Auto 1.2 X10*3/uL (1.2-4.9); Lymphocytes Percent Auto 24.8 % (20-40); Mean Corpuscular HGB Conc 33.1 g/dl (31.0-35.0); Mean Corpuscular Hemoglobin 31.4 pg (27.0-33.0); Mean Corpuscular Volume 94.8 fL (80-98); Mean Platelet Volume 10.1 fL (9.4-12.3); Monocytes Absolute Auto 0.3 X10*3/uL (0.1-1.2); Monocytes Percent Auto 5.1 % (2-11); Neutrophils Absolute Auto 3.3 X10*3/uL (2.0-8.3); Neutrophils Percent Auto 67.7 % (45-73); Platelet Count 192 X10*3/uL (160-400); Red Blood Count 3.25 X10*6/uL (4.20-5.50); Red Cell Distribution Width 15.8 % (11.0-16.0); White Blood Count 4.9 X10*3/uL (4.8-10.8)
[2020-10-06 05:27] LABS: Prothrombin Time 12.1 SEC (10.8-13.0)
[2020-10-06 05:49] LABS: Alanine Aminotransferase 37 U/L (0-31); Albumin Level 3.3 g/dL (3.5-5.0); Alkaline Phosphatase 112 U/L (39-117); Anion Gap 11 (12-20); Aspartate Amino Transferase 64 U/L (5-31); Bilirubin Direct 0.6 mg/dL (0.0-0.5); Bilirubin Total 1.5 mg/dL (0.0-1.0); Blood Urea Nitrogen 3 mg/dL (9-16); Calcium 7.7 mg/dL (8.4-10.2); Carbon Dioxide 25 mmol/L (22-29); Chloride 104 mmol/L (96-108); Creatinine Clr Calc Pharmacy 110.8; Estimated Glomerular Filt Rate > 60; Glucose Fasting 137 mg/dL (60-99); Lipase 49 U/L (8-78); Potassium 3.1 mmol/L (3.3-5.1); Sodium 137 mmol/L (135-145); Total Protein 5.9 g/dL (6.5-8.0)
[2020-10-06] MEDS: Omeprazole 20 MG CAPSULE.DR PO (05:50)
[2020-10-06] MEDS: Heparin Sodium,Porcine 5,000 UNIT/ML VIAL 5000 UNIT SUBCUT ×3 (05:51→21:56)
--- NOTE | 2020-10-06 14:25 | P.PNIM_ITS ---
Subjective Subjective Date of Service: 10/06/20 Interval History: Patient seen and examined at bedside patient was reporting abdominal pain Constitutional Constitutional: Reports as per HPI and Reports no additional constitutional complaints Eyes Eyes: Reports as per HPI and Reports no additional eye complaints ENT Ears, Nose, Mouth, and Throat: Reports system reviewed and no additional complaints, except as documented and Reports as per HPI Cardiovascular Cardiovascular: Reports as per HPI and Reports no additional cardiovascular complaints Respiratory Respiratory: Reports as per HPI and Reports no additional respiratory complaints Gastrointestinal Gastrointestinal: Reports as per HPI, Reports no additional gastrointestinal complaints, Reports abdominal pain, Reports nausea and Reports vomiting Musculoskeletal Musculoskeletal: Reports no additional musculoskeletal complaints and Reports as per HPI Neurologic Neurologic: Reports system reviewed and no additional complaints, except as documented and Reports as per HPI Psychiatric Psychiatric: Reports no additional psychiatric complaints and Reports as per HPI Physical Exam Vital Signs: Vital Signs: Last Vital Signs Temp 98.0 F 10/06/20 11:58 Pulse 87 10/06/20 11:58 Resp 18 10/06/20 11:58 BP 129/87 10/06/20 11:58 Pulse Ox 97 10/06/20 11:58 Body Mass Index 32.4 Const: General: cooperative, healthy appearing, comfortable, no acute distress, well developed, alert, awake, Physically active and acute distress Orientation/consciousness: patient oriented x3 HENMT: Head: Yes normal to inspection, Yes No palpable skull fracture present, Yes normocephalic, Yes atraumatic, Yes abrasion, No Campbell's sign, No contusion, No cranial bruits, No hematoma, No laceration, No occipital foramen tenderness, No palpable skull fracture, No raccoon eyes, No scalp lesion, No scalp tenderness, No Temporal artery tenderness present and No periorbital ecchymosis Eyes: General: appearance normal, both eyes and all related structures Neck: Neck: Yes normal visual inspection, Yes full ROM, Yes no lymphad enopathy, Yes no meningeal signs, Yes trachea midline, Yes supple and No tender Chest: Chest palpation & inspection: normal inspection of the chest and normal palpation of entire chest wall Breast/axilla inspection: normal inspection of the breasts Resp: Effort & Inspection: normal respiratory effort and able to speak in complete sentences Auscultation: clear to auscultation bilaterally Cardio: Jugular venous distension: no JVD Heart sounds: S1 normal heart sound present and S2 normal heart sound present GI: Inspection: Yes normal to inspection Palpation (GI): Soft to palpation, not firm, Tenderness to palpation present (GI) in the epigastrum, no guarding and not rigid : General: No CVA tenderness and Yes no CVA tenderness Back/Spine/Pelvis: Back: no CVA tenderness, No CVA tenderness and No back tenderness Skin: General skin exam: no rashes or lesions noted and elasticity normal Neuro: General: patient oriented x3, no meningeal signs and CN's II-XI intact bilaterally Cranial nerves: Yes CN's II-XII intact bilaterally Extrem: General: Yes normal to inspection and Yes full ROM Psych: Appearance: grossly normal, well kempt and not disheveled Objective Data Current Medications Generic Name Dose Route Start Last Admin Trade Name Freq PRN Reason Stop Dose Admin Heparin Sodium (Porcine) 5,000 unit 10/04/20 22:00 10/06/20 14:03 Heparin Sodium,Porcine 5,000 Unit/Ml Vial SUBCUT 5,000 unit Q8H XUAN Administration Hydromorphone HCl 0.5 mg 10/04/20 21:39 10/06/20 13:57 Hydromorphone Hcl 0.5 Mg/0.5 Ml Syringe IVPUSH 0.5 mg Q4H PRN Administration Pain, Severe (Pain Scale 7-10) Dextrose/Sodium Chloride 1,000 mls @ 100 mls/hr 10/04/20 21:45 10/06/20 11:18 D51/2ns IVCONT 100 mls/hr .Q10H XUAN Administration Omeprazole 20 mg 10/05/20 17:30 10/06/20 05:50 Omeprazole 20 Mg Capsule.Dr PO 20 mg DAILY@0630 XUAN Administration Ondansetron HCl 4 mg 10/04/20 21:39 10/06/20 11:14 Ondansetron Hcl 4 Mg/2 Ml Vial IVPUSH 4 mg Q8H PRN Administration Nausea and Vomiting Pharmacy Consult 1 each 10/04/20 21:29 Consult Rx Perform Med Rec MISCELLANE ONCE PRN Consult order Potassium Chloride 40 meq 10/06/20 14:24 Potassium Chloride Er 20 Meq Tab.Er.Prt PO 10/06/20 14:25 ONCE ONE Sodium Chloride 3 ml 10/05/20 00:00 10/06/20 08:05 0.9 % Sodium Chloride Flush 3 Ml Syringe IVFLUSH Not Given QSHIFT XUAN Labs CBC & Chem 7: 10/06/20 04:57 10/06/20 04:57 Assessment and Plan (1) Pancreatitis: Status: Acute Assessment and Plan: 35-year-old female with a past medical history of anxiety, depression, ADHD, bipolar presented to the hospital with a chief complaint of abdominal pain. Noted to have pancreatitis. Acute pancreatitis etiology not clear denies alcohol abuse, triglyceride normal, history of cholecystectomy CT abdomen shows pancreatitis and normal CBD MRCP shows no CBD dilatation continue IV fluid continue pain management Gi consulted recommended continue current management and IgG level ordered Transaminitis trending down MRCP shows no CBD dilatation LFTs trending down hepatitis panel pending History of mood disorder Patient was on lithium, Adderall, trazodone but reports has not been taking for the past 9 months. as was lactating DVT prophylaxis: Subcu heparin Code status: Full code
[2020-10-06] MEDS: Potassium Chloride ER 20 MEQ TAB.ER.PRT 40 MEQ PO (14:54)
--- NOTE | 2020-10-06 15:08 | PC.NURSE ---
1506 Patient occasionally bradycardic with a HR of 47 during sleep. Assessed the patient. Patient complained of lightheadedness and seeing stars when ambulating to bathroom. No issues when laying in bed. Current BP 138/[address] Urrutia made aware. Will monitor. Patient has no complaints at this time. Patient resting comfortably in bed.
[2020-10-06] MEDS: 0.9 % Sodium Chloride Flush 3 ML SYRINGE IVFLUSH (19:42)
[2020-10-07 00:09] VITALS: RESP 18
[2020-10-07] MEDS: HYDROmorphone HCl 0.5 MG/0.5 ML SYRINGE IVPUSH ×4 (00:09→14:28)
[2020-10-07 04:00] VITALS: BP 137/85; PULSE 65; RESP 18; TEMP 36.7; O2SAT 98
[2020-10-07] MEDS: Heparin Sodium,Porcine 5,000 UNIT/ML VIAL 5000 UNIT SUBCUT ×2 (05:33→14:28)
[2020-10-07] MEDS: Omeprazole 20 MG CAPSULE.DR PO (05:34)
[2020-10-07 07:38] LABS: Alanine Aminotransferase 26 U/L (0-31); Albumin Level 3.3 g/dL (3.5-5.0); Alkaline Phosphatase 107 U/L (39-117); Anion Gap 10 (12-20); Aspartate Amino Transferase 35 U/L (5-31); Bilirubin Total 0.5 mg/dL (0.0-1.0); Blood Urea Nitrogen 3 mg/dL (9-16); Calcium 7.9 mg/dL (8.4-10.2); Carbon Dioxide 26 mmol/L (22-29); Chloride 106 mmol/L (96-108); Estimated Glomerular Filt Rate > 60; Glucose Random 127 mg/dL (60-115); Potassium 3.2 mmol/L (3.3-5.1); Sodium 139 mmol/L (135-145); Total Protein 5.9 g/dL (6.5-8.0)
[2020-10-07 07:53] VITALS: BP 125/84; PULSE 63; RESP 20; TEMP 36.8; O2SAT 96
[2020-10-07 09:16] LABS: Lipase 65 U/L (8-78)
[2020-10-07] MEDS: ondansetron HCL 4 MG/2 ML VIAL IVPUSH (10:05)
[2020-10-07] MEDS: 0.9 % Sodium Chloride Flush 3 ML SYRINGE IVFLUSH (10:06)
--- NOTE | 2020-10-07 11:44 | PM.DS ---
DS: Providers Provider Date of Service: 10/07/20 <Alison Prather NP - Last Filed: 10/07/20 16:09> 11/17/20 <Awais Suarez MD - Last Filed: 11/17/20 17:42> Date of admission: 10/04/20 21:39 <Alison Prather NP - Last Filed: 10/07/20 16:09> Date of discharge: 10/07/20 <Alison Prather NP - Last Filed: 10/07/20 16:09> Primary care physician: Raghu Physician <Alison Prather NP - Last Filed: 10/07/20 16:09> Admitting clinician: Kirk Eckert <Alison Prather NP - Last Filed: 10/07/20 16:09> Attending physician on admission: Kirk Eckert <Alison Prather NP - Last Filed: 10/07/20 16:09> Consults: 10/04/20 21:40 Consult to Gastroenterology Routine Consulting Provider: Kenny Beltrán Reason for consultation: pancreatitis- unclear etiology <Alison Prather NP - Last Filed: 10/07/20 16:09> Attending physician on discharge: Awais Suarez <Alison Prather NP - Last Filed: 10/07/20 16:09> Discharging clinician: Alison Prather <Alison Prather NP - Last Filed: 10/07/20 16:09> DS: Diagnosis Discharge Diagnosis (1) Pancreatitis: Status: Resolved <Alison Prather NP - Last Filed: 10/07/20 16:09> DS: Medications Discharge Medications Home Medications: Home Medications Medication Instructions Recorded Confirmed No Known Home Meds 10/04/20 10/04/20 <Alison Prather NP - Last Filed: 10/07/20 16:09> DS: Summary Hospital Course Hospital Course: HP as per admitting provider 5 female with past medical history of anxiety, depression, bipolar, ADHD, hypertension, history of cholecystectomy presented to the hospital with a chief complaint upper abdominal pain past 2 days associated nausea and vomiting. Abdominal pain was in nature. Denies any fever chills cough. Denies any diarrhea. Denies any chest pain palpitations lightheadedness dizziness. Denies any new medications. Denies alcohol use. Review of all other systems is negative except mentioned above ER course: Per ER team patient noted to have epigastric tenderness, CT scan showed mildly dilated CBD, post cholecystectomy changes, pancreatitis. Given pain medications. Admitted to the hospital for further management Pancreatitis. Course included aggressive IV fluids hydration, NPO initially and advanced to regular diet. Lipase down from 94 to 65. AST, ALT improved. Seen and evaluated by gastroenterology. Igg pending for autoimmun pancreatitis in light of thefact that patient does not drink alcohol and triglycerides were mildly elevated , acute pancreatitis could also have been related to passage of stone. No further complications seen and no further gastroenterology workup warranted at this time. Home with griselda. She received a list of primary care providers from the rifle case repairer for outpatient follow up. Continue PPI. Attending: Dr. Suarez <Alison Prather NP - Last Filed: 10/07/20 16:09> Time Spent with Patient Time attestation: Total time spent providing and/or coordinating discharge services: <Alison Prather NP - Last Filed: 10/07/20 16:09> Discharge coordination time: Greater than 30 minutes <Alison Prather NP - Last Filed: 10/07/20 16:09> Physical Exam Vital Signs: Vital Signs: Last Vital Signs Temp 98.2 F 10/07/20 07:53 Pulse 63 10/07/20 07:53 Resp 20 10/07/20 07:53 BP 125/84 10/07/20 07:53 Pulse Ox 96 10/07/20 07:53 Body Mass Index 32.4 <Alison Prahter NP - Last Filed: 10/07/20 16:09> Appearing in no acute distress head is normocephalic atraumatic eyes pupils are PERRLA sclera is anicteric mouth throat mucous membranes are intact and moist neck is supple no lymphadenopathy, no JVD noted lung sounds are clear to auscultation heart regular rate rhythm, clear S1, S2 positive bowel sounds, abdomen is soft, nontender neuro patient is alert x3, no focal deficits <Alison Prather NP - Last Filed: 10/07/20 16:09> DS: Data Data Completed and Pending Labs on day of discharge: Laboratory Results - last 24 hr 10/07/20 06:53 Sodium 139 Potassium 3.2 L Chloride 106 Carbon Dioxide 26 Anion Gap 10 L BUN 3 L Creatinine 0.63 Estim Creat Clear Calc 132.0 Estimated GFR > 60 Random Glucose 127 H Calcium 7.9 L Total Bilirubin 0.5 AST 35 H D ALT 26 Alkaline Phosphatase 107 Total Protein 5.9 L Albumin 3.3 L Lipase 65 <Alison Prather NP - Last Filed: 10/07/20 16:09> Discharge Plan Discharge Anticipated Discharge Date/Time: 10/07/20 11:38 <Alison Prather NP - Last Filed: 10/07/20 16:09> Patient Disposition: Home, Self-Care <Alison Prather NP - Last Filed: 10/07/20 16:09> Discharge Diagnosis: Pancreatitis <Alison Prather NP - Last Filed: 10/07/20 16:09> Pancreatitis <Awais Suarez MD - Last Filed: 11/17/20 17:42> Referrals: Physician,None [Primary Care Provider] - <Alison Prather NP - Last Filed: 10/07/20 16:09> Discharge Medications: New ondansetron HCl [Zofran] 4 mg tablet 4 mg PO Q8H PRN (Reason: nausea and vomiting) Qty: 9 RF: 0 omeprazole 20 mg Capsule,Delayed Release(Dr/Ec) 20 mg PO DAILY@0630 30 Days Qty: 30 RF: 0 oxycodone 5 mg capsule 5 mg PO Q6H PRN (Reason: pancreatitis ) Qty: 8 RF: 0 <Alison Prather NP - Last Filed: 10/07/20 16:09> Discharge Orders: Discharge Order (Routine); Ordered 10/07/20 Ordered By: Alison Prather <Alison Prather NP - Last Filed: 10/07/20 16:09> Diet: advance to usual diet <Alison Prather NP - Last Filed: 10/07/20 16:09> advance to usual diet <Awais Suarez MD - Last Filed: 11/17/20 17:42> Activity on Discharge: As tolerated <Alison Prather NP - Last Filed: 10/07/20 16:09> As tolerated <Awais Suarez MD - Last Filed: 11/17/20 17:42> Stand Alone Forms: Patient Portal Discharge page, Work/School Release <Alison Prather NP - Last Filed: 10/07/20 16:09> Care Plan Goals: Resolution of symptoms of pancreatitis <Alison Prather NP - Last Filed: 10/07/20 16:09> Health Concerns: Pancreatitis <Alison Prather NP - Last Filed: 10/07/20 16:09> Plan of Treatment: Follow up with Primary care provider. If symptoms worsen return to the emergency department. <Alison Prather NP - Last Filed: 10/07/20 16:09> Assessment: Pancreatitis <Alison Prather NP - Last Filed: 10/07/20 16:09> Discharge Date/Time: 10/07/20 15:17 <Alison Prather NP - Last Filed: 10/07/20 16:09>
[2020-10-07 11:57] VITALS: BP 136/93; PULSE 74; RESP 16; TEMP 36.6; O2SAT 99
[2020-10-07] MEDS: Potassium Chloride ER 20 MEQ TAB.ER.PRT 40 MEQ PO (12:11)
--- NOTE | 2020-10-07 14:04 | MHC.CM.PN ---
PT CLEARED TO DC HOME TODAY WITH NO SERVICES. PT DOES NOT HAVE A PCP. A LIST OF AREA PROVIDERS WAS GIVEN ALONG WITH INFORMATION ON HOW TO LIST A NEW PCP WITH HER INSURANCE COMPANY.
--- NOTE | 2020-10-07 14:17 | PC.NURSE ---
Pt given dialaudid for 6/10 midepigastric pain. pt states needs to go home today to take care of children. MD aware. Pt did eat today and stated that she was able to tolerate food and the pain was tolerable. Denied nausesa after eating. discharge order in place.
[2020-10-07 14:28] VITALS: RESP 16
[2020-10-08 03:55] LABS: HBsAGNum1 0.14 S/CO (0.00-0.99); Hepatitis B Surface Antigen Negative (Negative)
[2020-10-08 04:08] LABS: HBS Num1 17.33 mIU/mL (0-7.99); HBc Num1 0.05 S/CO (0.00-0.79); Hepatitis B Core Antibody Nonreactive (Nonreactive); ~HepC Num1 0.16 S/CO (0.00-0.79); ~Hepatitis B Surface Antibody REACTIVE (Nonreactive); ~Hepatitis C Antibody Nonreactive (Nonreactive)
[2020-10-09 00:27] LABS: Immunoglobulin G Subclass 1 591 mg/dL (382-929); Immunoglobulin G Subclass 2 409 mg/dL (241-700); Immunoglobulin G Subclass 3 91 mg/dL (22-178); Immunoglobulin G Subclass 4 13.5 mg/dL (4-86); Immunoglobulin G Total 1126 mg/dL (600-1640)
[2020-10-10 08:54] LABS: Hepatitis A Antibody IgM 0.19 Index (0-0.79); ~Hepatitis A Antibody IgM Nonreactive (Nonreactive)
== END 2020-10-07 15:17 | disposition home or self-care (01) | DRG 282 ==
LOC: HO.ED 21:19 → HO.EDOVER 22:39 → HO.IMC 10-05 06:48
PROVIDERS: Internal Medicine; Physician Assistant; Admitting Provider Hospitalist; Emergency Provider Emergency Medicine Emergency Medical Services; Visit Provider Internal Medicine
DX: K85.90 Acute pancreatitis without necrosis or infection, unspecified (principal); F32.9 Major depressive disorder, single episode, unspecified; R74.01 Elevation of levels of liver transaminase levels; F90.9 Attention-deficit hyperactivity disorder, unspecified type; I10 Essential (primary) hypertension; Z91.14 Patient's other noncompliance with medication regimen; F41.9 Anxiety disorder, unspecified; Z79.899 Other long term (current) drug therapy
CPT/HCPCS: 36415; 74177; 74181; 80048; 80053; 80061; 80076; 81003; 82784; 83690; 84702; 85025; 85610; 86704; 86706; 86709; 86803; 87340; 87635; 96375; 99285; J1170; J2270; J2405; Q9967

== ENCOUNTER 2021-03-11 19:38 | Emergency (ER) | payer OTHER, SELFPAY | END 2021-03-11 21:15 | disposition left against medical advice (07) | PROVIDERS: Emergency Provider Emergency Medicine; PCP Internal Medicine | DX: R10.9 Unspecified abdominal pain (principal) ==

== ENCOUNTER 2021-05-06 11:15 | Emergency (ER) | payer OTHER, SELFPAY ==
--- NOTE | ~2021-05-06 | XR_ITS ---
EXAMINATION: XR KNEE, RIGHT CLINICAL INFORMATION: Right knee pain status post fall. COMPARISON: None TECHNIQUE: Four views of the right knee. FINDINGS: Bones and soft tissues are normal. No fracture or joint effusion. Alignment is anatomic. Joint spaces are well maintained. No abnormal soft tissue calcification. XR/XR knee RT 2V IMPRESSION: Unremarkable right knee.
--- NOTE | ~2021-05-06 | US_ITS ---
EXAMINATION: US VENOUS ULTRASOUND WITH DOPPLER LOWER EXTREMITY, RIGHT CLINICAL INFORMATION: Right calf pain status post ankle trauma. COMPARISON: None TECHNIQUE: Ultrasound of the deep veins is performed from the hip to the calf with compression sonography and color and pulse Doppler assessment. Spectral analysis with color-flow imaging is performed. FINDINGS: There is normal venous compression and respiratory variation and augmented flow. The visualized common femoral vein, superficial femoral vein, profunda femoral vein, popliteal vein, and the trifurcation region shows no evidence of deep venous thrombosis. There is no right popliteal cyst. The subcutaneous soft tissues are unremarkable. If the patient's symptoms persist, followup ultrasound in 5 days 7 days might be of value to exclude proximal propagation from a non-visualized calf vein. US/US venous duplex LE RT IMPRESSION: No evidence for deep venous thrombosis in the visualized veins of the right lower extremity.
--- NOTE | ~2021-05-06 | XR_ITS ---
EXAMINATION: XR ANKLE, RIGHT CLINICAL INFORMATION: Right ankle pain status post fall. COMPARISON: None TECHNIQUE: AP, lateral, and mortise views of the right ankle. FINDINGS: The ankle joint and mortise are intact. There is no acute fracture or dislocation. The tarsal bones are normally aligned. There is a very small calcaneal spur. Mild soft tissue swelling is seen more pronounced laterally XR/XR ankle RT 2V IMPRESSION: Mild soft tissue swelling, more pronounced laterally, without acute underlying osseous abnormality.
[2021-05-06 12:05] VITALS: BP 163/104; PULSE 82; RESP 16; TEMP 36.4; O2SAT 99; BMI 32.3
[2021-05-06 13:49] VITALS: BP 164/100; PULSE 78; RESP 18; O2SAT 100
--- NOTE | 2021-05-06 14:05 | ED.EXTPRO ---
HPI - Extremity Problem General Chief complaint: Extremity Problem Stated complaint: Knee and ankle swelling Time Seen by Provider: 05/06/21 14:05 Source: patient Mode of arrival: ambulatory Limitations: no limitations History of Present Illness HPI Narrative: 36-year-old female presents for right LE injury that occurred 2 days ago. Patient was running up and down stairs and tripped and landed on her right ankle and inverted her right ankle. Her left knee is also painful. Related Data Previous Rx's Medication Instructions Recorded omeprazole 20 mg capsule,delayed 20 mg PO DAILY@0630 30 Days #30 cap 10/07/20 release ondansetron HCl 4 mg tablet 4 mg PO Q8H PRN #9 tab 10/07/20 (Zofran) oxycodone 5 mg capsule 5 mg PO Q6H PRN #8 cap 10/07/20 ketorolac 10 mg tablet 10 mg PO TID 5 Days #15 tab 05/06/21 Allergies Allergy/AdvReac Type Severity Reaction Status Date / Time osborne [CHERRIES] Allergy Intermediate UNKNOWN Verified 07/18/20 00:33 red dye [RED DYE] AdvReac Mild DIARRHEA Verified 07/18/20 00:33 Review of Systems Review of Systems: Constitutional : No Weight loss, No Fever, No Chills, No Night Sweats,No Fatigue, No Malaise ENT/Mouth : No Hearing loss, No Ear Pain, No Nasal Congestion, NoSinus Pain, No Hoarseness, No sore throat, No Rhinorrhea, NoSwallowing Difficulty Eyes: No Eye Pain, No Swelling, No Redness, No Foreign Body, NoDischarge, No Vision Changes Cardiovascular : No Chest Pain, No SOB, No Dyspnea on Exertion, NoOrthopnea, No Edema, No Palpitations Respiratory : No Cough, No Sputum, No Wheezing, No Smoke Exposure, No Dyspnea Gastrointestinal : No Nausea, No Vomiting, No Diarrhea, NoConstipation, No abdominal Pain, No Hematochezia, No Melena Musculoskeletal : Left ankle pain and swelling, left knee pain, left calf pain Skin : No Skin Lesions, No rash Neuro : No Weakness, No Numbness, No Paresthesias, No Loss ofConsciousness, No Dizziness, No Headache PMFSH Past Medical History Medical History ADHD Bipolar 1 disorder Depression Hypertension Surgical History Hx of cholecystectomy Status post cholecystectomy Social History Social History Household Members: Significant Other and Children Housing: Apartment Do you presently have visiting nurse or other home services: No Patient Tobacco Use Status: Never used Tobacco Second Hand Smoke Exposure: No Use of substances other than those prescribed or required for medical reasons: No Advance Directives: No Advance Directives Information Provided: No Physical Exam Vital Signs: Vital Signs: Last Vital Signs Temp 97.6 F 05/06/21 12:05 Pulse 78 05/06/21 13:49 Resp 18 05/06/21 13:49 BP 164/100 H 05/06/21 13:49 Pulse Ox 100 05/06/21 13:49 Body Mass Index 32.3 Const: General: cooperative, no acute distress, well developed, alert and awake Nutritional Appearance: well nourished Orientation/consciousness: patient oriented x3 Limitations: no limitations Eyes: Pupils: Equal, round and reactive pupils present Neck: Neck: Yes full ROM, Yes no lymphadenopathy and Yes supple Resp: Effort & Inspection: normal respiratory effort and able to speak in complete sentences Auscultation: clear to auscultation bilaterally, no crackles, no rales, no rhonchi and no wheezes Cardio: Rate: regular rate Rhythm: regular rhythm Heart sounds: S1 normal heart sound present and S2 normal heart sound present Skin: General skin exam: no rashes or lesions noted Neuro: General: patient oriented x3, tone normal and moves all extremities Cranial nerves: Yes Equal, round and reactive pupils present Extrem: Left lower extremity: full ROM, normal capillary refill, lower leg Details: tenderness Location: of the posterior calf and no edema and ankle Details: tenderness Location: of the anterior talofibular ligament, swelling Details: laterally, no edema and normal ROM; Negative for no warmth, no abrasions, no lacerations, no ecchymosis, no crepitus and achilles tendon exam normal Psych: Appearance: grossly normal Affect: normal affect Attitude: cooperative Thought process: Normal thought process present Course Course Course Narrative: A 36-year-old female presents for fall on stairs 2 days ago. X-ray right ankle shows soft tissue swelling in her lateral ankle. X-ray right knee is normal. On exam, patient has intact right lower extremity pulses, sensation, motor strength. She is tender in her posterior left calf. And getting DVT ultrasound to rule out blood clot Reevaluation(s) Reevaluation #1: No DVT. Gave air cast, crutches, counseled RICE, follow-up with orthopedics, prescribed ketorolac Discharge Plan Discharge Clinical Impression: Ankle sprain Qualifiers: Encounter type: initial encounter Involved ligament of ankle: posterior talofibular ligament Laterality: right Qualified Code(s): S93.491A - Sprain of other ligament of right ankle, initial encounter Patient Disposition: Home, Self-Care Instructions: Crutch Instructions (ED), Ankle Stirrup Splint (ED), R.I.C.E. Treatment (ED), Ankle Strain (ED) Additional Instructions: Please call Orthopedics for follow-up appointment at [phone] Please rest, ice, elevate, and use your air cast. Please use your crutches and do not bear weight ankle until you are seen in Orthopedics total CO2 is okay to do so. Please fill your prescription for ketorolac and take as prescribed. Do not take any ibuprofen containing products. As we discussed, please baby your ankle as much as possible Prescriptions: New ketorolac 10 mg tablet 10 mg PO TID 5 Days Qty: 15 RF: 0 No Action ondansetron HCl [Zofran] 4 mg tablet 4 mg PO Q8H PRN (Reason: nausea and vomiting) Qty: 9 RF: 0 omeprazole 20 mg Capsule,Delayed Release(Dr/Ec) 20 mg PO DAILY@0630 30 Days Qty: 30 RF: 0 oxycodone 5 mg capsule 5 mg PO Q6H PRN (Reason: pancreatitis ) Qty: 8 RF: 0 Referrals: Aleksander Andrade MD [Physician] - 2 days (right ankle sprain ) Stand Alone Forms: Work/School Release
[2021-05-06] MEDS: oxyCODONE HCl Immed Release 5 MG TABLET PO (14:36)
[2021-05-06] MEDS: Ketorolac Tromethamine 15 MG/ML VIAL IM (16:14)
== END 2021-05-06 16:18 | disposition home or self-care (01) ==
PROVIDERS: Emergency Provider Student in an Organized Health Care Education/Training Program; PCP Internal Medicine
DX: S89.91XA Unspecified injury of right lower leg, initial encounter (principal); S99.911A Unspecified injury of right ankle, initial encounter; R60.0 Localized edema; M25.561 Pain in right knee; W10.9XXA Fall (on) (from) unspecified stairs and steps, initial encounter; Y93.9 Activity, unspecified; Y92.9 Unspecified place or not applicable; Y99.9 Unspecified external cause status
CPT/HCPCS: 73560; 73600; 93971; 96372; 99284; 99285; J1885

== ENCOUNTER 2021-06-26 10:55 | Inpatient (IN) | payer OTHER, SELFPAY ==
--- NOTE | ~2021-06-26 | CT_ITS ---
EXAMINATION: CT ABDOMEN AND PELVIS WITH CONTRAST CLINICAL INFORMATION: Diffuse abdominal pain. Vomiting. COMPARISON: 10/04/2020 TECHNIQUE: Multidetector volumetric images were obtained from the superior aspect of the liver through the pubic symphysis following administration 85 mL of Omnipaque 350 intravenous contrast. Sagittal and coronal reformatted images were obtained on the technologist's workstation. Oral contrast: No This CT examination was performed using dose optimization techniques as appropriate, variously including the following: *Automated exposure control *Adjustment of mA and/or kV according to patient size (this includes techniques or standardized protocols for targeted exams where dose is matched to indication/reason for exam; i.e. extremities or head) *Use of iterative reconstruction technique DLP: 970 mGy-cm FINDINGS: LUNG BASES: The visualized lung bases are unremarkable. LIVER, GALLBLADDER, AND BILIARY TREE: The liver is normal in size and shape with decreased attenuation. No focal hepatic lesion or biliary ductal dilatation is present. The gallbladder is absent. PANCREAS: The pancreatic parenchyma is homogenous. Mild inflammatory stranding of the fat seen in the region of the pancreatic head. No focal pancreatic lesion or ductal dilatation. SPLEEN: Unremarkable. ADRENAL GLANDS: Unremarkable. KIDNEYS AND URETERS: The kidneys are normal in size, shape, and attenuation. No hydronephrosis, hydroureter, or calculi seen. No perinephric stranding. BLADDER: Unremarkable. GASTROINTESTINAL TRACT: Stomach is decompressed with no gross abnormality. Normal caliber small bowel. Normal appendix. No colonic wall thickening or acute inflammatory change. No free air. ABDOMINAL WALL: No significant hernia is appreciated. LYMPH NODES: Normal. VASCULAR: Unremarkable. PELVIC VISCERA: The uterus and adnexa are unremarkable. OSSEOUS STRUCTURES: No acute or suspicious osseous abnormality. Degenerative changes throughout the spine. Moderate degenerative changes of the right hip. Mild degenerative changes of the left hip. Transitional anatomy of the lumbosacral junction. CT/CT abdomen pelvis w con IMPRESSION: Mild inflammatory stranding of the fat in the region of the pancreatic head. Correlate for pancreatitis. This is a similar appearance of inflammation compared to previous imaging. Hepatic steatosis. Fleischner guidelines were followed.
--- NOTE | ~2021-06-26 | CT_ITS ---
EXAMINATION: CT ABDOMEN AND PELVIS WITH CONTRAST CLINICAL INFORMATION: Worsening pancreatitis COMPARISON: CT abdomen and pelvis 06/26/2021 TECHNIQUE: Multidetector volumetric images were obtained from the superior aspect of the liver through the pubic symphysis following administration 85 mL of Omnipaque 350 intravenous contrast. Sagittal and coronal reformatted images were obtained on the technologist's workstation. Oral contrast: No This CT examination was performed using dose optimization techniques as appropriate, variously including the following: *Automated exposure control *Adjustment of mA and/or kV according to patient size (this includes techniques or standardized protocols for targeted exams where dose is matched to indication/reason for exam; i.e. extremities or head) *Use of iterative reconstruction technique DLP: 1224 mGy-cm FINDINGS: LUNG BASES: Minimal linear atelectasis within the lateral right middle lobe, similar to prior study. Lung bases are otherwise clear. There are no pleural fluid collections. LIVER, GALLBLADDER, AND BILIARY TREE: Liver is normal in size and contour though is diffusely low in attenuation compatible with steatosis. There are foci of low attenuation adjacent to falciform ligament and the jessica hepatis compatible with fatty infiltration which are similar to prior studies. No focal hepatic lesions are seen. There is no intra or extrahepatic duct dilation. The gallbladder is surgically absent.. PANCREAS: Pancreatic parenchyma is homogeneous. There is persistent, though mildly reduced inflammatory stranding about the region of the pancreatic head. No peripancreatic fluid collections are identified and there is no dilation of the pancreatic duct. There are no nonenhancing regions to suggest necrosis. SPLEEN: Unremarkable. ADRENAL GLANDS: Unremarkable. KIDNEYS AND URETERS: The kidneys are normal in size, shape, and attenuation. No hydronephrosis, hydroureter, or calculi seen. No perinephric stranding. BLADDER: Unremarkable. GASTROINTESTINAL TRACT: The small and large bowel are unremarkable. The appendix is unremarkable. ABDOMINAL WALL: No significant hernia is appreciated. There is trace pelvic free fluid which was not seen on the prior study. This could be physiologic free fluid in a patient of this age. Note is again made of a ovoid, somewhat lobulated structure along the posterior aspect of the left pubococcygeus muscle. This has increased in size since initial is in 11/05/2019 and now measures 3 x 2.2 x 2.6 cm (images 686, series 3 and 71, series 7), previously 2.6 x 1.4 x 2.2 cm by my measurement. LYMPH NODES: Normal. VASCULAR: Unremarkable. PELVIC VISCERA: The uterus and adnexa are unremarkable. OSSEOUS STRUCTURES: Unremarkable. CT/CT abdomen pelvis w con IMPRESSION: There are persistent, though decreased mild inflammatory changes about the region of the pancreatic head compatible with the diagnosis of pancreatitis. There are no peripancreatic fluid collections or regions of necrosis identified. There is a small amount of fluid in the pelvis of uncertain significance, though this may be physiologic in a patient of this age. An indeterminate tissue nodule is again seen associated with the left posterior aspect of the pubococcygeus muscle which has had slow interval growth and now measures 3 x 2.2 x 2.6 cm. Further evaluation with pelvic MRI may be considered. Hepatic steatosis.
[2021-06-26 11:36] VITALS: BP 153/110; PULSE 85; RESP 18; TEMP 36.8; O2SAT 98; BMI 31.6
[2021-06-26 14:08] LABS: MANUAL DIFF FLAG NO
[2021-06-26 14:09] LABS: Basophils Percent Auto 0.1 % (0-2); Eosinophils Percent Auto 0.3 % (0-4); Hematocrit 39.9 % (37.0-47.0); Hemoglobin 13.2 g/dl (12.0-16.0); Imm Gran Abs Auto 0.03 X10*3/uL (0.00-0.03); Imm Gran Pct Auto 0.3 % (0.0-0.4); Lymphocytes Absolute Auto 1.9 X10*3/uL (1.2-4.9); Lymphocytes Percent Auto 17.8 % (20-40); Mean Corpuscular HGB Conc 33.1 g/dl (31.0-35.0); Mean Corpuscular Hemoglobin 29.9 pg (27.0-33.0); Mean Corpuscular Volume 90.3 fL (80.0-98.0); Mean Platelet Volume 9.1 fL (9.4-12.3); Monocytes Absolute Auto 0.4 X10*3/uL (0.1-1.2); Neutrophils Absolute Auto 8.2 x10*3/uL (2.0-8.3); Neutrophils Percent Auto 77.5 % (45-73); Platelet Count 306 X10*3/uL (160-400); Red Blood Count 4.42 X10*6/uL (4.20-5.50); Red Cell Distribution Width 14.3 % (11.0-16.0); White Blood Count 10.5 X10*3/uL (4.8-10.8)
[2021-06-26 14:24] LABS: Alanine Aminotransferase 64 U/L (0-31); Albumin Level 4.3 g/dL (3.5-5.0); Alkaline Phosphatase 114 U/L (39-117); Anion Gap 15 (12-20); Aspartate Amino Transferase 96 U/L (5-31); Bilirubin Total 1.1 mg/dL (0.0-1.0); Blood Urea Nitrogen 7 mg/dL (9-16); Calcium 9.1 mg/dL (8.4-10.2); Carbon Dioxide 23 mmol/L (22-29); Chloride 106 mmol/L (96-108); Creatinine Clr Calc Pharmacy 82.5; Estimated Glomerular Filt Rate > 60; Glucose Random 119 mg/dL (60-115); Sodium 140 mmol/L (135-145); Total Protein 8.1 g/dL (6.5-8.0)
[2021-06-26 14:58] LABS: Appearance Urine CLEAR; Color Urine YELLOW; Glucose Urine UA NEG (NEG); Leukocyte Esterase Urine NEG (NEG); Nitrite Urine NEG (NEG); Specific Gravity - Urine >= 1.030 (1.005-1.025); Urine Blood NEG (NEG); Urine Ketones NEG (NEG); Urine Protein TRACE MG/DL (NEG-TRACE)
--- NOTE | 2021-06-26 15:54 | ED.ABDPAIN ---
HPI - Abdominal Pain General Chief Complaint: Abdominal Pain Stated Complaint: Abd pain/vomiting Time Seen by Provider: 06/26/21 15:46 Source: patient Mode of arrival: ambulatory Limitations: no limitations History of Present Illness HPI narrative: 36-year-old female with history of bipolar disease, depression, hypertension, ADHD, previous cholecystectomy here with complaint of upper abdominal pain with vomiting since last evening. Patient tells me she is unable to tolerate p.o. fluids due to her nausea and vomiting. She has had some diarrhea. She denies any constipation, urinary symptoms, fevers or chills. No sick contact or recent travel. Related Data Home Medications Medication Instructions Recorded Confirmed melatonin 3 mg tablet 6 mg PO BEDTIME 06/26/21 06/26/21 Allergies Allergy/AdvReac Type Severity Reaction Status Date / Time osborne [CHERRIES] Allergy Intermediate UNKNOWN Verified 06/26/21 11:36 red dye [RED DYE] AdvReac Mild DIARRHEA Verified 06/26/21 11:36 Review of Systems Review of Systems Yes all other systems are reviewed and are negative Constitutional: Reports no additional constitutional complaints, Denies body ache(s), Denies chills, Denies fever(s), Denies headache(s) and Denies weakness Eyes: Reports no additional eye complaints and Denies change in vision Reports system reviewed and no additional complaints, except as documented, Denies dizziness, Denies headache(s), Denies nasal congestion, Denies nasal discharge and Denies neck pain Cardiovascular: Reports no additional cardiovascular complaints, Denies chest pain, Denies leg edema and Denies dyspnea Respiratory: Reports no additional respiratory complaints, Denies cough and Denies dyspnea Gastrointestinal: Reports no additional gastrointestinal complaints, Reports abdominal pain, Reports diarrhea, Reports nausea and Reports vomiting Genitourinary: Reports no additional female genitourinary complaints and Denies urinary incontinence Musculoskeletal: Reports no additional musculoskeletal complaints, Denies back pain, Denies arthralgias, Denies joint swelling, Denies neck pain, Denies numbness and Denies tingling Skin/Breast: Reports system reviewed and no additional complaints, except as docu and Denies rash Reports system reviewed and no additional complaints, except as documented, Denies Abnormal speech present, Denies dizziness, Denies headache(s), Denies numbness, Denies tingling and Denies weakness Physical Exam Vital Signs: Vital Signs: Last Vital Signs Temp 98.5 F 06/26/21 18:14 Pulse 73 06/26/21 20:06 Resp 18 06/26/21 20:06 BP 143/93 H 06/26/21 20:06 Pulse Ox 99 06/26/21 20:06 BMI result Body Mass Index 31.6 Const: General: cooperative, healthy appearing, comfortable and no acute distress Orientation/consciousness: patient oriented x3 Limitations: no limitations HENMT: Other: tacky mucous membranes Head: Yes normal to inspection Ears: hearing grossly normal bilaterally General nose exam: Normal external nose present Face and sinus: Yes normal facial exam Mouth: Normal oral and palatal mucosa present Throat: Yes posterior oropharynx normal Eyes: General: appearance normal, both eyes and all related structures Pupils: Equal, round and reactive pupils present Neck: Neck: Yes normal visual inspection Chest: Chest palpation & inspection: normal inspection of the chest Resp: Effort & Inspection: normal respiratory effort Auscultation: clear to auscultation bilaterally Cardio: Rate: regular rate Rhythm: regular rhythm Peripheral pulses: Peripheral pulses 2+ throughout GI: Inspection: Yes normal to inspection Palpation (GI): Soft to palpation and Tenderness to palpation present (GI) (Diffusely tender with guarding ) Auscultation: normal bowel sounds Back/Spine/Pelvis: Thoracic/Lumbar Spine: thoracic and lumbar spine normal to inspection Skin: General skin exam: no rashes or lesions noted Neuro: General: patient oriented x3, no focal motor deficits and normal sensation to monofilament Cranial nerves: Yes Equal, round and reactive pupils present Cognition (Neuro): normal cognition Speech: No Abnormal speech present Gait exam (Neuro): Normal gait present Motor exam (neuro): 5/5 motor strength present throughout Extrem: General: Yes normal to inspection, Yes no pedal edema and Yes no calf tenderness Course Course Course Narrative: 36-year-old female here with complaints of diffuse abdominal pain and vomiting since last evening with a few episodes of diarrhea. She tells me she is unable to tolerate any p.o. fluids due to her nausea and vomiting. She points to her upper abdomen to her area of pain but on exam she is diffusely tender. She has tacky mucous membranes. Will check labs, UA, COVID screen. Will give 1 L normal saline and antiemetic, analgesia and re-assess. 1600- reviewed labs which show mild elevated LFTs. Patient tells me that she had a cholecystectomy 1 year ago [facility]. Of note the patient was admitted in September of 2020 for pancreatitis for unknown causes. Will add on lipase, check CT A/P. 1840- CT consistent with pancreatitis. Patient has required several rounds of analgesia for pain with continued symptoms addition to antiemetics. Will speak to Medicine for admission 200-Discussed with Dr terry who accepted admission. MDM - Abdominal Pain Medical Records Attestation: I reviewed the patient's medical records. Lab Data Attestation: I reviewed the patient's lab results. Result diagrams: 06/26/21 14:04 06/26/21 14:04 Labs: Lab Results 06/26/21 06/26/21 06/26/21 Range/Units 14:04 14:04 14:45 WBC 10.5 (4.8-10.8) X10*3/uL RBC 4.42 (4.20-5.50) X10*6/uL Hgb 13.2 (12.0-16.0) g/dl Hct 39.9 (37.0-47.0) % MCV 90.3 (80.0-98.0) fL MCH 29.9 (27.0-33.0) pg MCHC 33.1 (31.0-35.0) g/dl RDW 14.3 (11.0-16.0) % Plt Count 306 (160-400) X10*3/uL MPV 9.1 L (9.4-12.3) fL Immature Gran % (Auto) 0.3 (0.0-0.4) % Neut % (Auto) 77.5 H (45-73) % Lymph % (Auto) 17.8 L (20-40) % [place] % (Auto) 4.0 (2-11) % Eos % (Auto) 0.3 (0-4) % Baso % (Auto) 0.1 (0-2) % Lymph # (Auto) 1.9 (1.2-4.9) X10*3/uL [place] # (Auto) 0.4 (0.1-1.2) X10*3/uL Eos # (Auto) 0.0 (0.0-0.4) X10*3/uL Baso # (Auto) 0.0 (0.0-0.2) X10*3/uL Abs Immat Gran (auto) 0.03 (0.00-0.03) X10*3/uL Absolute Neuts (auto) 8.2 (2.0-8.3) x10*3/uL Absolute Nucleated RBC 0.000 (0.0-0.012) X10*3/uL Nucleated RBC % (auto) 0.0 (0.0-0.2) /100WBC Sodium 140 (135-145) mmol/L Potassium 4.0 D (3.3-5.1) mmol/L Chloride 106 (96-108) mmol/L Carbon Dioxide 23 (22-29) mmol/L Anion Gap 15 (12-20) BUN 7 L (9-16) mg/dL Creatinine 0.95 (0.5-1.4) mg/dL Estim Creat Clear Calc 82.5 Estimated GFR > 60 Random Glucose 119 H (60-115) mg/dL Calcium 9.1 D (8.4-10.2) mg/dL Total Bilirubin 1.1 H (0.0-1.0) mg/dL AST 96 H (5-31) U/L ALT 64 H (0-31) U/L Alkaline Phosphatase 114 (39-117) U/L Total Protein 8.1 H D (6.5-8.0) g/dL Albumin 4.3 D (3.5-5.0) g/dL Lipase 72 (8-78) U/L Beta HCG, Quant < 2 mIU/mL Urine Color YELLOW Urine Appearance CLEAR Urine pH 6.0 (5.0-8.0) Ur Specific [place] >= 1.030 H (1.005-1.025) Urine Protein TRACE (NEG-TRACE) MG/DL Urine Glucose (UA) NEG (NEG) MG/DL Urine Ketones NEG (NEG) MG/DL Urine Blood NEG (NEG) Urine Nitrite NEG (NEG) Ur Leukocyte Esterase NEG (NEG) COVID-19 (ELODIA) (Negative) COVID-19 Clin Com 06/26/21 Range/Units 18:29 WBC (4.8-10.8) X10*3/uL RBC (4.20-5.50) X10*6/uL Hgb (12.0-16.0) g/dl Hct (37.0-47.0) % MCV (80.0-98.0) fL MCH (27.0-33.0) pg MCHC (31.0-35.0) g/dl RDW (11.0-16.0) % Plt Count (160-400) X10*3/uL MPV (9.4-12.3) fL Immature Gran % (Auto) (0.0-0.4) % Neut % (Auto) (45-73) % Lymph % (Auto) (20-40) % [place] % (Auto) (2-11) % Eos % (Auto) (0-4) % Baso % (Auto) (0-2) % Lymph # (Auto) (1.2-4.9) X10*3/uL [place] # (Auto) (0.1-1.2) X10*3/uL Eos # (Auto) (0.0-0.4) X10*3/uL Baso # (Auto) (0.0-0.2) X10*3/uL Abs Immat Gran (auto) (0.00-0.03) X10*3/uL Absolute Neuts (auto) (2.0-8.3) x10*3/uL Absolute Nucleated RBC (0.0-0.012) X10*3/uL Nucleated RBC % (auto) (0.0-0.2) /100WBC Sodium (135-145) mmol/L Potassium (3.3-5.1) mmol/L Chloride (96-108) mmol/L Carbon Dioxide (22-29) mmol/L Anion Gap (12-20) BUN (9-16) mg/dL Creatinine (0.5-1.4) mg/dL Estim Creat Clear Calc Estimated GFR Random Glucose (60-115) mg/dL Calcium (8.4-10.2) mg/dL Total Bilirubin (0.0-1.0) mg/dL AST (5-31) U/L ALT (0-31) U/L Alkaline Phosphatase (39-117) U/L Total Protein (6.5-8.0) g/dL Albumin (3.5-5.0) g/dL Lipase (8-78) U/L Beta HCG, Quant mIU/mL Urine Color Urine Appearance Urine pH (5.0-8.0) Ur Specific [place] (1.005-1.025) Urine Protein (NEG-TRACE) MG/DL Urine Glucose (UA) (NEG) MG/DL Urine Ketones (NEG) MG/DL Urine Blood (NEG) Urine Nitrite (NEG) Ur Leukocyte Esterase (NEG) COVID-19 (ELODIA) Negative (Negative) COVID-19 Clin Com See Note Imaging Data CT scan - abdomen: Attestation: I personally reviewed and interpreted this imaging study as follows: Radiologist's impression: IMPRESSION: Mild inflammatory stranding of the fat in the region of the pancreatic head. Correlate for pancreatitis. This is a similar appearance of inflammation compared to previous imaging. ? Hepatic steatosis.? ? Fleischner guidelines were followed. Discharge Plan Discharge Clinical Impression: Pancreatitis Patient Disposition: Admitted As Inpatient [facility] Past Medical History Attestation statement: The following information was validated with the patient. Source: old records reviewed and nursing notes reviewed Medical History ADHD Bipolar 1 disorder Depression Hypertension Surgical History Hx of cholecystectomy Status post cholecystectomy Social History Social History Household Members: Significant Other and Children Housing: Apartment Do you presently have visiting nurse or other home services: No Patient Tobacco Use Status: Never used Tobacco Second Hand Smoke Exposure: No Advance Directives: No Advance Directives Information Provided: No Patient : No
[2021-06-26] MEDS: 0.9 % Sodium Chloride 1,000 ML 999 ML IV (15:59)
[2021-06-26] MEDS: Morphine Sulfate 4 MG/ML CARTRIDGE IVPUSH ×2 (16:00→18:33)
[2021-06-26] MEDS: ondansetron HCL 4 MG/2 ML VIAL IVPUSH (16:00)
[2021-06-26] MEDS: Famotidine/PF 20 MG/2 ML VIAL IVPUSH (16:02)
[2021-06-26 16:08] LABS: Lipase 72 U/L (8-78)
[2021-06-26 16:19] LABS: HCG Quantitative < 2 mIU/mL
[2021-06-26] MEDS: iohexoL 350 MG/ML 100 ML INFUS..BTL IV (17:47)
[2021-06-26 18:14] VITALS: BP 170/89; PULSE 92; RESP 20; TEMP 36.9; O2SAT 98
[2021-06-26 18:53] LABS: COVID-19 Test Negative (Negative)
--- NOTE | 2021-06-26 18:56 | PC.NURSE ---
medicated for pain and nausea, gi cocktail held, pt didn't think she could drink it, skin wpd, moved to 18h and ice chips per inpatient pharmacist
--- NOTE | 2021-06-26 19:16 | PHA.MEDREC ---
Pharmacy Consult ? Medication Reconciliation Pharmacy has completed the medication reconciliation.
[2021-06-26 20:06] VITALS: BP 143/93; PULSE 73; RESP 18; O2SAT 99
--- NOTE | 2021-06-26 20:31 | P.HPHOSP_ITS ---
History of Present Illness Date of Service: 06/26/21 Chief Complaint: abdominal pain 36-year-old female with a past medical history of anxiety, depression, ADHD, bipolar, hypertension, history of pancreatitis, history of cholecystectomy presented to the hospital today with a chief complaint of abdominal pain. Patient reports that She had alcohol on last Thursday and a republican; and since Thursday she has been having epigastric discomfort / pain associated nausea vomiting and diarrhea. Denies any blood in the vomitus or diarrhea. Mentions that pain radiates to the back and is not improving. Hence decided to come to the ER for further evaluation. Denies any numbness tingling or focal weakness. Denies any signs of food poisoning. Review of all other systems is negative except mentioned above ER course: Per ER team patient was noted to have abdominal tenderness; lipase was 72; CT abdomen showed findings consistent with acute pancreatitis; given pain medications; patient still continued to have abdominal discomfort; decided to admit to the hospital for further management. [facility] Medical History ADHD Bipolar 1 disorder Depression Hypertension Pertinent family history: reviewed Surgical History Hx of cholecystectomy Status post cholecystectomy Social History Household Members: Significant Other and Children Housing: Apartment Do you presently have visiting nurse or other home services: No Patient Tobacco Use Status: Never used Tobacco Second Hand Smoke Exposure: No Advance Directives: No Advance Directives Information Provided: No Patient : No service: No Meds Allergies Allergy/AdvReac Type Severity Reaction Status Date / Time osborne [CHERRIES] Allergy Intermediate UNKNOWN Verified 06/26/21 11:36 red dye [RED DYE] AdvReac Mild DIARRHEA Verified 06/26/21 11:36 Active Medications: Current Medications Pharmacy Consult (Consult Rx Perform Med Rec) 1 each MISCELLANE ONCE PRN PRN Reason: Consult order Home Medications Medication Instructions Recorded Confirmed Last Taken Type melatonin 3 mg tablet 6 mg PO BEDTIME 06/26/21 06/26/21 06/23/21 History Physical Exam Vital Signs and Narrative: Vital Signs: Last Vital Signs Temp 98.5 F 06/26/21 18:14 Pulse 73 06/26/21 20:06 Resp 18 06/26/21 20:06 BP 143/93 H 06/26/21 20:06 Pulse Ox 99 06/26/21 20:06 BMI result Body Mass Index 31.6 Gen: Appears be in no acute distress HEENT: NCAT, Moist mucosa. Pulmonary: Vesicular breath sounds, fair air entry CVS: Normal S1-S2 Abdomen: BS+, Soft, tender in epigastrium; no guarding no rigidity Extremities: Warm well perfused Neuro: Alert and awake. Results Labs CBC and Chem 7: 06/26/21 14:04 06/26/21 14:04 Labs: Laboratory Results - last 24 hr 06/26/21 06/26/21 06/26/21 14:04 14:04 14:45 MCV 90.3 MCH 29.9 MCHC 33.1 RDW 14.3 Plt Count 306 MPV 9.1 L Immature Gran % (Auto) 0.3 Neut % (Auto) 77.5 H Lymph % (Auto) 17.8 L [place] % (Auto) 4.0 Eos % (Auto) 0.3 Baso % (Auto) 0.1 Lymph # (Auto) 1.9 [place] # (Auto) 0.4 Eos # (Auto) 0.0 Baso # (Auto) 0.0 Abs Immat Gran (auto) 0.03 Absolute Neuts (auto) 8.2 Absolute Nucleated RBC 0.000 Nucleated RBC % (auto) 0.0 Anion Gap 15 Estim Creat Clear Calc 82.5 Estimated GFR > 60 Random Glucose 119 H Calcium 9.1 D Total Bilirubin 1.1 H AST 96 H ALT 64 H Alkaline Phosphatase 114 Total Protein 8.1 H D Albumin 4.3 D Lipase 72 Beta HCG, Quant < 2 Urine Color YELLOW Urine Appearance CLEAR Urine pH 6.0 Ur Specific [place] >= 1.030 H Urine Protein TRACE Urine Glucose (UA) NEG Urine Ketones NEG Urine Blood NEG Urine Nitrite NEG Ur Leukocyte Esterase NEG COVID-19 (ELODIA) COVID-19 Clin Com 06/26/21 18:29 MCV MCH MCHC RDW Plt Count MPV Immature Gran % (Auto) Neut % (Auto) Lymph % (Auto) [place] % (Auto) Eos % (Auto) Baso % (Auto) Lymph # (Auto) [place] # (Auto) Eos # (Auto) Baso # (Auto) Abs Immat Gran (auto) Absolute Neuts (auto) Absolute Nucleated RBC Nucleated RBC % (auto) Anion Gap Estim Creat Clear Calc Estimated GFR Random Glucose Calcium Total Bilirubin AST ALT Alkaline Phosphatase Total Protein Albumin Lipase Beta HCG, Quant Urine Color Urine Appearance Urine pH Ur Specific [place] Urine Protein Urine Glucose (UA) Urine Ketones Urine Blood Urine Nitrite Ur Leukocyte Esterase COVID-19 (ELODIA) Negative COVID-19 Clin Com See Note Imaging Radiologist's Impressions: Impressions Abdomen/Pelvis CT 06/26/21 17:58 IMPRESSION: Mild inflammatory stranding of the fat in the region of the pancreatic head. Correlate for pancreatitis. This is a similar appearance of inflammation compared to previous imaging. Hepatic steatosis. Fleischner guidelines were followed. Assessment and Plan (1) Pancreatitis: Status: Acute 36-year-old female with a past medical history of anxiety, depression, ADHD, bipolar, hypertension, history of pancreatitis, history of cholecystectomy presented to the hospital today with a chief complaint of abdominal pain. Noted to have recurrent pancreatitis. Admitted for further management. Recurrent pancreatitis: likelyin the setting of recent alcohol use. Will Also obtain IgG 4 levels Gastroenterology consult for further recommendations Supportive care Pain control IV fluids NPO for now GI prophylaxis: Pepcid DVT prophylaxis: SCD boots Code status: Full code Quality Stroke Does the patient have a stroke diagnosis?: No VTE Prior VTE?: No VTE Risk Level:: Medical - low VTE Device Contraindication: N/A - Device Ordered VTE Drug Contraindication: Treatment Not Indicated
[2021-06-26] MEDS: HYDROmorphone HCl 0.5 MG/0.5 ML SYRINGE IVPUSH (21:22)
[2021-06-26] MEDS: Dextrose 5 % and 0.45 % NaCl 1,000 ML 100 ML IVCONT (22:29)
--- NOTE | 2021-06-26 22:55 | MHC.CM.PN ---
CM met with admitted patient with bed assignment pending. Pt does speak Ecuadorean. No IMM necessary. No HCP on file. Education provided, declines at this time. Pt fully vaccinated with Moderna. Lives with 1 year old daughter. S.O. Nissa Escoto ([phone]) D/C plan is home without services. Transportation by S.O. CM to follow for d/c needs.
[2021-06-26 23:19] VITALS: BP 153/94; PULSE 72; RESP 16; O2SAT 97
--- NOTE | 2021-06-26 23:22 | PC.NURSE ---
PT complaining of abdominal pain. This RN asked permission to give additional pain meds early. Hospitalist confirmed it was ok.
[2021-06-27] VITALS: BP 144/86; PULSE 68; RESP 14; O2SAT 98
[2021-06-27 00:35] VITALS: RESP 18
[2021-06-27] MEDS: HYDROmorphone HCl 0.5 MG/0.5 ML SYRINGE IVPUSH ×6 (00:35→19:54)
[2021-06-27] MEDS: 0.9 % Sodium Chloride Flush 3 ML SYRINGE IVFLUSH ×3 (00:59→19:55)
[2021-06-27] MEDS: ondansetron HCL 4 MG/2 ML VIAL IVPUSH ×3 (03:41→19:54)
--- NOTE | 2021-06-27 03:41 | PC.NURSE ---
Assisting primary RN: pt endorsing 10/10 pain. Per monica Moore to administer hydromorphone PRN earlier than next due time. Pt medicated per SEP.
[2021-06-27] MEDS: Famotidine/PF 20 MG/2 ML VIAL IVPUSH (07:33)
[2021-06-27 07:49] LABS: MANUAL DIFF FLAG NO
[2021-06-27 07:52] LABS: Basophils Percent Auto 0.1 % (0-2); Eosinophils Absolute Auto 0.2 X10*3/uL (0.0-0.4); Eosinophils Percent Auto 2.5 % (0-4); Hematocrit 36.8 % (37.0-47.0); Imm Gran Abs Auto 0.04 X10*3/uL (0.00-0.03); Imm Gran Pct Auto 0.4 % (0.0-0.4); Lymphocytes Absolute Auto 1.8 X10*3/uL (1.2-4.9); Lymphocytes Percent Auto 19.7 % (20-40); Mean Corpuscular HGB Conc 32.6 g/dl (31.0-35.0); Mean Corpuscular Hemoglobin 29.8 pg (27.0-33.0); Mean Corpuscular Volume 91.3 fL (80.0-98.0); Mean Platelet Volume 9.2 fL (9.4-12.3); Monocytes Absolute Auto 0.4 X10*3/uL (0.1-1.2); Monocytes Percent Auto 4.4 % (2-11); Neutrophils Absolute Auto 6.7 x10*3/uL (2.0-8.3); Neutrophils Percent Auto 72.9 % (45-73); Platelet Count 235 X10*3/uL (160-400); Red Blood Count 4.03 X10*6/uL (4.20-5.50); White Blood Count 9.2 X10*3/uL (4.8-10.8)
[2021-06-27 08:38] LABS: Anion Gap 10 (12-20); Blood Urea Nitrogen 5 mg/dL (9-16); Calcium 8.5 mg/dL (8.4-10.2); Carbon Dioxide 24 mmol/L (22-29); Chloride 108 mmol/L (96-108); Creatinine Clr Calc Pharmacy 95.6; Estimated Glomerular Filt Rate > 60; Glucose Random 122 mg/dL (60-115); Potassium 3.5 mmol/L (3.3-5.1); Sodium 138 mmol/L (135-145)
--- NOTE | 2021-06-27 12:16 | PC.NURSE ---
report given to TIARA Ferreira. pt will be transported to room 354 by educational program assistant.
[2021-06-27 12:51] VITALS: BP 150/92; PULSE 70; RESP 18; TEMP 36.1; O2SAT 96
[2021-06-27] MEDS: Dextrose 5 % and 0.45 % NaCl 1,000 ML 100 ML IVCONT ×2 (13:55→21:55)
--- NOTE | 2021-06-27 13:56 | HO.PM.IMPN ---
Subjective Subjective Date of Service: 06/27/21 Interval History: continues with mid abdominal pain. Utilizing ice chips only. Review of Systems Denies chest pain Denies shortness of breath Denies nausea vomiting diarrhea Physical Exam Vital Signs: Vital Signs: Last Vital Signs Temp 96.9 F 06/27/21 12:51 Pulse 70 06/27/21 12:51 Resp 18 06/27/21 12:51 BP 150/92 H 06/27/21 12:51 Pulse Ox 96 06/27/21 12:51 BMI result Body Mass Index 31.6 Const: Other: awake alert Resp: Other: clear to auscultation bilaterally no rales rhonchi or wheezes Cardio: Other: no S4; positive S1-S2; no S3 murmurs rubs or gallops GI: Other: tender to palpation across epigastrium. Bowel sounds x4 quadrants. Mild voluntary guarding Neuro: Other: cranial nerves 2-12 grossly intact as tested. Motor is 5/5 all extremities. Sensation intact cognition appropriate Objective Data Active Medications Acetaminophen (Acetaminophen 325 Mg Tablet) 650 mg PO Q6H PRN PRN Reason: Pain, Mild (Pain Scale 1-3) Famotidine (Famotidine/Pf 20 Mg/2 Ml Vial) 20 mg IVPUSH DAILY [facility] Last Admin: 06/27/21 07:33 Dose: 20 mg Documented by: JESUS Hydromorphone HCl (Hydromorphone Hcl 0.5 Mg/0.5 Ml Syringe) 0.5 mg IVPUSH Q4H PRN; Protocol PRN Reason: Pain, Severe (Pain Scale 7-10) Last Admin: 06/27/21 11:23 Dose: 0.5 mg Documented by: JESUS Dextrose/Sodium Chloride (D51/2ns) 1,000 mls @ 100 mls/hr IVCONT .Q10H [facility] Last Infusion: 06/27/21 09:00 Dose: 0 mls/hr Documented by: JESUS Melatonin (Melatonin 3 Mg Tablet) 6 mg PO BEDTIME PRN PRN Reason: Insomnia Pharmacy Consult (Consult Rx Perform Med Rec) 1 each MISCELLANE ONCE PRN PRN Reason: Consult order Senna (Sennosides 8.6 Mg Tablet) 17.2 mg PO BEDTIME PRN PRN Reason: Constipation Sodium Chloride (0.9 % Sodium Chloride Flush 3 Ml Syringe) 3 ml IVFLUSH QSHIFT [facility] Last Admin: 06/27/21 08:59 Dose: Not Given Documented by: JESUS Non-Admin Reason: IV Running Labs CBC & Chem 7: 06/27/21 07:45 06/27/21 07:45 Labs: Laboratory Results - last 24 hr 06/26/21 06/26/21 06/26/21 14:04 14:04 14:45 MCV 90.3 MCH 29.9 MCHC 33.1 RDW 14.3 Plt Count 306 MPV 9.1 L Immature Gran % (Auto) 0.3 Neut % (Auto) 77.5 H Lymph % (Auto) 17.8 L [place] % (Auto) 4.0 Eos % (Auto) 0.3 Baso % (Auto) 0.1 Lymph # (Auto) 1.9 [place] # (Auto) 0.4 Eos # (Auto) 0.0 Baso # (Auto) 0.0 Abs Immat Gran (auto) 0.03 Absolute Neuts (auto) 8.2 Absolute Nucleated RBC 0.000 Nucleated RBC % (auto) 0.0 Anion Gap 15 Estim Creat Clear Calc 82.5 Estimated GFR > 60 Random Glucose 119 H Calcium 9.1 D Total Bilirubin 1.1 H AST 96 H ALT 64 H Alkaline Phosphatase 114 Total Protein 8.1 H D Albumin 4.3 D Lipase 72 Beta HCG, Quant < 2 Urine Color YELLOW Urine Appearance CLEAR Urine pH 6.0 Ur Specific [place] >= 1.030 H Urine Protein TRACE Urine Glucose (UA) NEG Urine Ketones NEG Urine Blood NEG Urine Nitrite NEG Ur Leukocyte Esterase NEG COVID-19 ([facility]) COVID-19 Clin Com 06/26/21 06/27/21 06/27/21 18:29 07:45 07:45 MCV 91.3 MCH 29.8 MCHC 32.6 RDW 14.0 Plt Count 235 MPV 9.2 L Immature Gran % (Auto) 0.4 Neut % (Auto) 72.9 Lymph % (Auto) 19.7 L [place] % (Auto) 4.4 Eos % (Auto) 2.5 Baso % (Auto) 0.1 Lymph # (Auto) 1.8 [place] # (Auto) 0.4 Eos # (Auto) 0.2 Baso # (Auto) 0.0 Abs Immat Gran (auto) 0.04 H Absolute Neuts (auto) 6.7 Absolute Nucleated RBC 0.000 Nucleated RBC % (auto) 0.0 Anion Gap 10 L Estim Creat Clear Calc 95.6 Estimated GFR > 60 Random Glucose 122 H Calcium 8.5 D Total Bilirubin AST ALT Alkaline Phosphatase Total Protein Albumin Lipase Beta HCG, Quant Urine Color Urine Appearance Urine pH Ur Specific [place] Urine Protein Urine Glucose (UA) Urine Ketones Urine Blood Urine Nitrite Ur Leukocyte Esterase COVID-19 ([facility]) Negative COVID-19 Clin Com See Note Assessment and Plan (1) Pancreatitis: Status: Acute Assessment and Plan: 36-year-old female with a past medical history of anxiety, depression, ADHD, bipolar, hypertension, history of pancreatitis, history of cholecystectomy presented to the hospital today with a chief complaint of abdominal pain. Noted to have recurrent pancreatitis. minimal improvement overnight 1.Pancreatitis: Admits recent alcohol use. Continue IV pain meds,NPO status: IV H 2 RA GI consult to review imaging and further recommend treatment GI prophylaxis: Pepcid DVT prophylaxis: SCD boots Code status: Full code Quality Stroke Does the patient have a stroke diagnosis?: No VTE Prior VTE?: No VTE Risk Level:: Medical - low VTE Device Contraindication: N/A - Device Ordered VTE Drug Contraindication: Treatment Not Indicated
[2021-06-27 15:50] VITALS: BP 143/92; PULSE 70; RESP 17; TEMP 36.8; O2SAT 98
[2021-06-27 17:53] LABS: Lipase 70 U/L (8-78)
[2021-06-27 19:40] VITALS: BP 160/99; PULSE 73; RESP 18; TEMP 36.2; O2SAT 98
[2021-06-27] MEDS: Melatonin 3 MG TABLET 6 MG PO (19:54)
[2021-06-28] VITALS (9 sets, daily range): BP systolic 139–159; BP diastolic 89–99; PULSE 73–92; RESP 16–19; TEMP 36.1–36.6; O2SAT 96–99
[2021-06-28] MEDS: HYDROmorphone HCl 0.5 MG/0.5 ML SYRINGE IVPUSH ×5 (00:38→21:26)
[2021-06-28] MEDS: Dextrose 5 % and 0.45 % NaCl 1,000 ML 100 ML IVCONT ×2 (05:37→15:39)
[2021-06-28 05:42] LABS: MANUAL DIFF FLAG NO
[2021-06-28 05:50] LABS: Basophils Percent Auto 0.1 % (0-2); Eosinophils Absolute Auto 0.2 X10*3/uL (0.0-0.4); Eosinophils Percent Auto 2.5 % (0-4); Hematocrit 34.5 % (37.0-47.0); Hemoglobin 11.2 g/dl (12.0-16.0); Imm Gran Abs Auto 0.03 X10*3/uL (0.00-0.03); Imm Gran Pct Auto 0.4 % (0.0-0.4); Lymphocytes Absolute Auto 1.6 X10*3/uL (1.2-4.9); Lymphocytes Percent Auto 21.2 % (20-40); Mean Corpuscular HGB Conc 32.5 g/dl (31.0-35.0); Mean Corpuscular Volume 92.5 fL (80.0-98.0); Mean Platelet Volume 9.8 fL (9.4-12.3); Monocytes Absolute Auto 0.4 X10*3/uL (0.1-1.2); Monocytes Percent Auto 4.7 % (2-11); Neutrophils Absolute Auto 5.3 x10*3/uL (2.0-8.3); Neutrophils Percent Auto 71.1 % (45-73); Platelet Count 211 X10*3/uL (160-400); Red Blood Count 3.73 X10*6/uL (4.20-5.50); Red Cell Distribution Width 13.8 % (11.0-16.0); White Blood Count 7.5 X10*3/uL (4.8-10.8)
[2021-06-28 06:34] LABS: Alanine Aminotransferase 29 U/L (0-31); Albumin Level 3.5 g/dL (3.5-5.0); Alkaline Phosphatase 94 U/L (39-117); Anion Gap 11 (12-20); Aspartate Amino Transferase 26 U/L (5-31); Bilirubin Total 1.7 mg/dL (0.0-1.0); Blood Urea Nitrogen 4 mg/dL (9-16); Calcium 8.6 mg/dL (8.4-10.2); Carbon Dioxide 26 mmol/L (22-29); Chloride 106 mmol/L (96-108); Creatinine Clr Calc Pharmacy 100.6; Estimated Glomerular Filt Rate > 60; Glucose Fasting 123 mg/dL (60-99); Potassium 3.5 mmol/L (3.3-5.1); Sodium 139 mmol/L (135-145); Total Protein 6.4 g/dL (6.5-8.0)
[2021-06-28] MEDS: Famotidine/PF 20 MG/2 ML VIAL IVPUSH ×2 (08:01→17:46)
[2021-06-28] MEDS: ondansetron HCL 4 MG/2 ML VIAL IVPUSH ×2 (10:53→17:15)
--- NOTE | 2021-06-28 14:42 | HO.PM.IMPN ---
Subjective Subjective Date of Service: 06/28/21 Interval History: notes slight improvement and belly pain; able to drink water without exacerbating pain Review of Systems denies chest pain Denies shortness of breath Denies nausea vomiting diarrhea Physical Exam Vital Signs: Vital Signs: Last Vital Signs Temp 97.8 F 06/28/21 11:28 Pulse 87 06/28/21 11:28 Resp 19 06/28/21 12:59 BP 139/99 H 06/28/21 11:28 Pulse Ox 99 06/28/21 11:28 BMI result Body Mass Index 31.6 Const: Other: awake alert Resp: Other: clear to auscultation bilaterally no rales rhonchi or wheezes Cardio: Other: no S4; positive S1-S2; no S3 murmurs rubs or gallops GI: Other: tender to palpation across epigastrium. Bowel sounds x4 quadrants. Mild voluntary guarding Neuro: Other: cranial nerves 2-12 grossly intact as tested. Motor is 5/5 all extremities. Sensation intact cognition appropriate Objective Data Active Medications Acetaminophen (Acetaminophen 325 Mg Tablet) 650 mg PO Q6H PRN PRN Reason: Pain, Mild (Pain Scale 1-3) Famotidine (Famotidine/Pf 20 Mg/2 Ml Vial) 20 mg IVPUSH DAILY [facility] Last Admin: 06/28/21 08:01 Dose: 20 mg Documented by: JUDSONEMA Hydromorphone HCl (Hydromorphone Hcl 0.5 Mg/0.5 Ml Syringe) 0.5 mg IVPUSH Q4H PRN; Protocol PRN Reason: Pain, Severe (Pain Scale 7-10) Last Admin: 06/28/21 12:59 Dose: 0.5 mg Documented by: JUDSONEMA Dextrose/Sodium Chloride (D51/2ns) 1,000 mls @ 100 mls/hr IVCONT .Q10H [facility] Last Admin: 06/28/21 05:37 Dose: 100 mls/hr Documented by: ANGIEILMarina Melatonin (Melatonin 3 Mg Tablet) 6 mg PO BEDTIME PRN PRN Reason: Insomnia Last Admin: 06/27/21 19:54 Dose: 6 mg Documented by: JULIANN Ondansetron HCl (Ondansetron Hcl 4 Mg/2 Ml Vial) 4 mg IVPUSH Q6H PRN PRN Reason: Nausea and Vomiting Last Admin: 06/28/21 10:53 Dose: 4 mg Documented by: BRONSON Pharmacy Consult (Consult Rx Perform Med Rec) 1 each MISCELLANE ONCE PRN PRN Reason: Consult order Senna (Sennosides 8.6 Mg Tablet) 17.2 mg PO BEDTIME PRN PRN Reason: Constipation Sodium Chloride (0.9 % Sodium Chloride Flush 3 Ml Syringe) 3 ml IVFLUSH QSHIFT [facility] Last Admin: 06/28/21 07:46 Dose: Not Given Documented by: BRONSON Non-Admin Reason: IV Running Labs CBC & Chem 7: 06/28/21 05:32 06/28/21 05:32 Labs: Laboratory Results - last 24 hr 06/27/21 06/28/21 06/28/21 17:21 05:32 05:32 MCV 92.5 MCH 30.0 MCHC 32.5 RDW 13.8 Plt Count 211 MPV 9.8 Immature Gran % (Auto) 0.4 Neut % (Auto) 71.1 Lymph % (Auto) 21.2 [place] % (Auto) 4.7 Eos % (Auto) 2.5 Baso % (Auto) 0.1 Lymph # (Auto) 1.6 [place] # (Auto) 0.4 Eos # (Auto) 0.2 Baso # (Auto) 0.0 Abs Immat Gran (auto) 0.03 Absolute Neuts (auto) 5.3 Absolute Nucleated RBC 0.000 Nucleated RBC % (auto) 0.0 Anion Gap 11 L Estim Creat Clear Calc 100.6 Estimated GFR > 60 Fasting Glucose 123 H Calcium 8.6 Total Bilirubin 1.7 H AST 26 D ALT 29 Alkaline Phosphatase 94 Total Protein 6.4 L D Albumin 3.5 Lipase 70 Assessment and Plan (1) Pancreatitis: Status: Acute Assessment and Plan: 36-year-old female with a past medical history of anxiety, depression, ADHD, bipolar, hypertension, history of pancreatitis, history of cholecystectomy presented to the hospital today with a chief complaint of abdominal pain. Noted to have recurrent pancreatitis. Able to tolerate water without exacerbation of pain 1.Pancreatitis: Improving...will advance to clears and follow Continue IV pain meds,NPO status: IV H 2 RA GI prophylaxis: Pepcid DVT prophylaxis: SCD boots Code status: Full code Quality Stroke Does the patient have a stroke diagnosis?: No VTE Prior VTE?: No VTE Risk Level:: Medical - low VTE Device Contraindication: N/A - Device Ordered VTE Drug Contraindication: Treatment Not Indicated
--- NOTE | 2021-06-28 14:45 | CONS_ITS ---
DATE OF SERVICE: 06/28/2021 REFERRING PHYSICIAN: Jonah Kidd DO REASON FOR CONSULTATION: Pancreatitis. HISTORY OF PRESENT ILLNESS: The patient is a pleasant 36-year-old woman, who was admitted to the hospital on June 26 after presenting to the emergency department complaining of epigastric abdominal pain with associated nausea and nonbloody vomiting. She also had some nonbloody diarrhea. The pain did radiate into the back. Symptoms began before admission after she had multiple alcoholic drinks at a libertarian on Thursday night. She was evaluated in the emergency department with laboratory studies showing a white blood cell count of 10.5, mild elevations of her liver function tests with a total bilirubin of 1.1, AST of 96, and ALT of 64. Lipase was normal on admission and LFTs quickly returned to normal. Imaging was obtained with CT scanning, which is reviewed. This is interpreted as showing inflammatory stranding of the fat in the pancreatic head without a focal lesion. She was diagnosed with acute pancreatitis and admitted to the hospital. She was previously hospitalized in September of this year with pancreatitis and at that time, reportedly was not drinking alcohol and had mild elevation of her triglycerides. IgG4 levels were normal. They have been reordered and are pending. The patient states she does not generally drink alcohol on heavy basis, but was having a lot on the weekend because of a celebration. PAST MEDICAL HISTORY: 1. ADHD. 2. Bipolar disorder. 3. Hypertension. 4. Pancreatitis. CURRENT MEDICATIONS: Her current medication list is reviewed in the chart. ALLERGIES: THERE ARE ALLERGIES REPORTED TO [facility]. FAMILY HISTORY: This is reviewed with the patient. SOCIAL HISTORY: She denies substance abuse. PAST SURGICAL HISTORY: Cholecystectomy. REVIEW OF SYSTEMS: SKIN: No pruritus. HEENT: Negative. CARDIOPULMONARY: She denies shortness of breath or chest pain. GASTROINTESTINAL: As above. GENITOURINARY: Negative. NEUROPSYCHIATRIC: Negative. PHYSICAL EXAMINATION: GENERAL: Shows a pleasant female, sitting up in bed, watching television. VITAL SIGNS: Stable. SKIN: Anicteric. Multiple tattoos are present over the body. HEENT: Shows no scleral icterus. NECK: Without lymphadenopathy or thyromegaly. LUNGS: Clear. HEART: Shows a regular rate and rhythm. S1, S2. No murmur. ABDOMEN: Obese, soft, and nontender. Bowel sounds are present. No organomegaly is noted. EXTREMITIES: Without edema. LABORATORY DATA: Laboratory data and imaging studies are reviewed. IMPRESSION: Pancreatitis. This appears consistent with pancreatitis on the basis of her alcohol use. I discussed this with her including the need to avoid alcohol as even small amounts can result in recurrent episodes of pancreatitis. She appears to understand this and indicates that she will stop using alcohol. She is currently being treated supportively with IV fluids, pain medications, and gradual advancement of her diet, she improves. If she does have worsening abdominal pain or fevers, I would repeat CT scanning. Thanks for asking me to see her. I will follow her in the hospital with you. MD PATTIE Maldonado/LALA / [phone]
[2021-06-28] MEDS: Acetaminophen 325 MG TABLET 650 MG PO (17:47)
[2021-06-28] MEDS: Melatonin 3 MG TABLET 6 MG PO (21:26)
[2021-06-29] VITALS: BP 152/100; PULSE 72; RESP 16; TEMP 36.8; O2SAT 97
[2021-06-29] MEDS: ondansetron HCL 4 MG/2 ML VIAL IVPUSH ×2 (01:31→13:55)
[2021-06-29] MEDS: Dextrose 5 % and 0.45 % NaCl 1,000 ML 100 ML IVCONT ×4 (01:31→20:28)
[2021-06-29] MEDS: HYDROmorphone HCl 0.5 MG/0.5 ML SYRINGE IVPUSH ×5 (01:32→23:31)
[2021-06-29 04:00] VITALS: BP 155/94; PULSE 70; RESP 16; TEMP 36.2; O2SAT 98
[2021-06-29 05:46] LABS: MANUAL DIFF FLAG NO
[2021-06-29 05:51] LABS: Basophils Percent Auto 0.1 % (0-2); Eosinophils Absolute Auto 0.2 X10*3/uL (0.0-0.4); Hematocrit 32.9 % (37.0-47.0); Hemoglobin 10.7 g/dl (12.0-16.0); Imm Gran Abs Auto 0.04 X10*3/uL (0.00-0.03); Imm Gran Pct Auto 0.5 % (0.0-0.4); Lymphocytes Absolute Auto 1.7 X10*3/uL (1.2-4.9); Lymphocytes Percent Auto 20.8 % (20-40); Mean Corpuscular HGB Conc 32.5 g/dl (31.0-35.0); Mean Corpuscular Hemoglobin 30.1 pg (27.0-33.0); Mean Corpuscular Volume 92.4 fL (80.0-98.0); Mean Platelet Volume 9.7 fL (9.4-12.3); Monocytes Absolute Auto 0.4 X10*3/uL (0.1-1.2); Monocytes Percent Auto 4.5 % (2-11); Neutrophils Absolute Auto 5.8 x10*3/uL (2.0-8.3); Neutrophils Percent Auto 72.1 % (45-73); Platelet Count 220 X10*3/uL (160-400); Red Blood Count 3.56 X10*6/uL (4.20-5.50); Red Cell Distribution Width 13.6 % (11.0-16.0)
[2021-06-29 06:14] LABS: Alanine Aminotransferase 24 U/L (0-31); Albumin Level 3.4 g/dL (3.5-5.0); Alkaline Phosphatase 90 U/L (39-117); Anion Gap 8 (12-20); Aspartate Amino Transferase 23 U/L (5-31); Bilirubin Total 0.6 mg/dL (0.0-1.0); Blood Urea Nitrogen 3 mg/dL (9-16); Calcium 8.2 mg/dL (8.4-10.2); Carbon Dioxide 26 mmol/L (22-29); Chloride 108 mmol/L (96-108); Creatinine Clr Calc Pharmacy 110.5; Estimated Glomerular Filt Rate > 60; Glucose Fasting 122 mg/dL (60-99); Potassium 3.2 mmol/L (3.3-5.1); Sodium 139 mmol/L (135-145); Total Protein 6.2 g/dL (6.5-8.0)
[2021-06-29] MEDS: Acetaminophen 325 MG TABLET 650 MG PO (09:21)
[2021-06-29] MEDS: Famotidine/PF 20 MG/2 ML VIAL IVPUSH ×2 (09:23→20:28)
[2021-06-29] MEDS: 0.9 % Sodium Chloride Flush 3 ML SYRINGE IVFLUSH ×2 (09:27→17:09)
--- NOTE | 2021-06-29 11:23 | P.PNIM_ITS ---
Subjective Subjective Date of Service: 06/29/21 Interval History: Developed pain after 12 hours of clear liquids. Describes pain as 8 to 9/10 right upper quadrant Review of Systems denies chest pain denies shortness of breath Denies nausea vomiting diarrhea Physical Exam Vital Signs: Vital Signs: Last Vital Signs Temp 97.1 F 06/29/21 04:00 Pulse 70 06/29/21 04:00 Resp 16 06/29/21 04:00 BP 155/94 H 06/29/21 04:00 Pulse Ox 98 06/29/21 04:00 BMI result Body Mass Index 31.6 Const: Other: awake alert Resp: Other: clear to auscultation bilaterally no rales rhonchi or wheezes Cardio: Other: no S4; positive S1-S2; no S3 murmurs rubs or gallops GI: Other: tender to palpation across epigastrium. Bowel sounds x4 quadrants. Mild voluntary guarding Neuro: Other: cranial nerves 2-12 grossly intact as tested. Motor is 5/5 all extremities. Sensation intact cognition appropriate Objective Data Active Medications Acetaminophen (Acetaminophen 325 Mg Tablet) 650 mg PO Q6H PRN PRN Reason: Pain, Mild (Pain Scale 1-3) Last Admin: 06/29/21 09:21 Dose: 650 mg Documented by: TANIKA Famotidine (Famotidine/Pf 20 Mg/2 Ml Vial) 20 mg IVPUSH BID [facility] Last Admin: 06/29/21 09:23 Dose: 20 mg Documented by: TANIKA Hydromorphone HCl (Hydromorphone Hcl 0.5 Mg/0.5 Ml Syringe) 0.5 mg IVPUSH Q4H PRN; Protocol PRN Reason: Pain, Severe (Pain Scale 7-10) Last Admin: 06/29/21 09:21 Dose: 0.5 mg Documented by: TANIKA Dextrose/Sodium Chloride (D51/2ns) 1,000 mls @ 100 mls/hr IVCONT .Q10H [facility] Last Admin: 06/29/21 01:31 Dose: 100 mls/hr Documented by: GEMA Melatonin (Melatonin 3 Mg Tablet) 6 mg PO BEDTIME PRN PRN Reason: Insomnia Last Admin: 06/28/21 21:26 Dose: 6 mg Documented by: HO.BAIYEP Ondansetron HCl (Ondansetron Hcl 4 Mg/2 Ml Vial) 4 mg IVPUSH Q6H PRN PRN Reason: Nausea and Vomiting Last Admin: 06/29/21 01:31 Dose: 4 mg Documented by: GEMA Pharmacy Consult (Consult Rx Perform Med Rec) 1 each MISCELLANE ONCE PRN PRN Reason: Consult order Senna (Sennosides 8.6 Mg Tablet) 17.2 mg PO BEDTIME PRN PRN Reason: Constipation Sodium Chloride (0.9 % Sodium Chloride Flush 3 Ml Syringe) 3 ml IVFLUSH QSHIFT [facility] Last Admin: 06/29/21 09:27 Dose: 3 ml Documented by: TANIKA Labs CBC & Chem 7: 06/29/21 05:36 06/29/21 05:36 Labs: Laboratory Results - last 24 hr 06/29/21 06/29/21 05:36 05:36 MCV 92.4 MCH 30.1 MCHC 32.5 RDW 13.6 Plt Count 220 MPV 9.7 Immature Gran % (Auto) 0.5 H Neut % (Auto) 72.1 Lymph % (Auto) 20.8 [place] % (Auto) 4.5 Eos % (Auto) 2.0 Baso % (Auto) 0.1 Lymph # (Auto) 1.7 [place] # (Auto) 0.4 Eos # (Auto) 0.2 Baso # (Auto) 0.0 Abs Immat Gran (auto) 0.04 H Absolute Neuts (auto) 5.8 Absolute Nucleated RBC 0.000 Nucleated RBC % (auto) 0.0 Anion Gap 8 L Estim Creat Clear Calc 110.5 Estimated GFR > 60 Fasting Glucose 122 H Calcium 8.2 L Total Bilirubin 0.6 AST 23 ALT 24 Alkaline Phosphatase 90 Total Protein 6.2 L Albumin 3.4 L Assessment and Plan (1) Pancreatitis: Status: Acute Assessment and Plan: 36-year-old female with a past medical history of anxiety, depression, ADHD, bipolar, hypertension, history of pancreatitis, history of cholecystectomy presented to the hospital today with a chief complaint of abdominal pain. Noted to have recurrent pancreatitis. Able to tolerate water without exacerbation of pain 1.Pancreatitis: Given worsening pain...repeat CT Continue IV pain meds,NPO status: IV H 2 RA GI prophylaxis: Pepcid DVT prophylaxis: SCD boots Code status: Full code Quality Stroke Does the patient have a stroke diagnosis?: No VTE Prior VTE?: No VTE Risk Level:: Medical - low VTE Device Contraindication: N/A - Device Ordered VTE Drug Contraindication: Treatment Not Indicated
[2021-06-29 12:00] VITALS: BP 143/92; PULSE 73; RESP 18; TEMP 36.1; O2SAT 97
[2021-06-29] MEDS: iohexoL 350 MG/ML 100 ML INFUS..BTL IV (14:03)
[2021-06-29 15:45] VITALS: BP 162/94; PULSE 79; RESP 17; TEMP 36.2; O2SAT 98
[2021-06-29 19:32] VITALS: BP 162/105; PULSE 80; RESP 18; TEMP 36.1; O2SAT 99
[2021-06-29 23:26] VITALS: BP 193/105; PULSE 87; RESP 18; TEMP 36.3; O2SAT 80
[2021-06-29] MEDS: Melatonin 3 MG TABLET 6 MG PO (23:32)
[2021-06-30 03:04] VITALS: BP 165/96; PULSE 76; RESP 18; TEMP 36.2; O2SAT 98
[2021-06-30 05:07] LABS: MANUAL DIFF FLAG NO
[2021-06-30 05:20] LABS: Eosinophils Absolute Auto 0.1 X10*3/uL (0.0-0.4); Eosinophils Percent Auto 1.3 % (0-4); Hemoglobin 10.9 g/dl (12.0-16.0); Imm Gran Abs Auto 0.03 X10*3/uL (0.00-0.03); Imm Gran Pct Auto 0.3 % (0.0-0.4); Lymphocytes Absolute Auto 1.5 X10*3/uL (1.2-4.9); Lymphocytes Percent Auto 17.2 % (20-40); Mean Corpuscular Hemoglobin 30.1 pg (27.0-33.0); Mean Corpuscular Volume 91.2 fL (80.0-98.0); Monocytes Absolute Auto 0.4 X10*3/uL (0.1-1.2); Monocytes Percent Auto 4.8 % (2-11); Neutrophils Absolute Auto 6.8 x10*3/uL (2.0-8.3); Neutrophils Percent Auto 76.4 % (45-73); Platelet Count 239 X10*3/uL (160-400); Red Blood Count 3.62 X10*6/uL (4.20-5.50); Red Cell Distribution Width 13.6 % (11.0-16.0); White Blood Count 8.9 X10*3/uL (4.8-10.8)
[2021-06-30 05:49] LABS: Alanine Aminotransferase 25 U/L (0-31); Albumin Level 3.5 g/dL (3.5-5.0); Alkaline Phosphatase 97 U/L (39-117); Anion Gap 11 (12-20); Aspartate Amino Transferase 26 U/L (5-31); Bilirubin Total 0.3 mg/dL (0.0-1.0); Blood Urea Nitrogen 2 mg/dL (9-16); Calcium 8.3 mg/dL (8.4-10.2); Carbon Dioxide 25 mmol/L (22-29); Chloride 106 mmol/L (96-108); Creatinine Clr Calc Pharmacy 115.3; Estimated Glomerular Filt Rate > 60; Glucose Fasting 116 mg/dL (60-99); Potassium 2.9 mmol/L (3.3-5.1); Sodium 139 mmol/L (135-145); Total Protein 6.4 g/dL (6.5-8.0)
[2021-06-30 08:00] VITALS: BP 179/108; PULSE 96; RESP 18; TEMP 36.1; O2SAT 98
[2021-06-30] MEDS: Potassium Chloride/H20 10 MEQ/100 ML PIGGYBACK 100 MEQ IV ×4 (08:08→13:54)
[2021-06-30] MEDS: Famotidine/PF 20 MG/2 ML VIAL IVPUSH ×2 (08:08→20:14)
[2021-06-30] MEDS: 0.9 % Sodium Chloride Flush 3 ML SYRINGE IVFLUSH ×3 (08:08→20:22)
[2021-06-30 08:13] LABS: Magnesium 1.8 mg/dL (1.6-2.6)
[2021-06-30] MEDS: HYDROmorphone HCl 0.5 MG/0.5 ML SYRINGE IVPUSH ×3 (09:38→20:15)
--- NOTE | 2021-06-30 10:45 | HO.PM.IMPN ---
Subjective Subjective Date of Service: 06/30/21 Interval History: doing well with clear liquid diet. No exacerbation of pain. Now with left lower pelvic pain with leg movement Review of Systems denies chest pain Denies shortness of breath Denies nausea vomiting diarrhea Physical Exam Vital Signs: Vital Signs: Last Vital Signs Temp 97.0 F 06/30/21 08:00 Pulse 96 06/30/21 08:00 Resp 18 06/30/21 08:00 BP 179/108 H 06/30/21 08:00 Pulse Ox 98 06/30/21 08:00 BMI result Body Mass Index 31.6 Const: Other: awake alert Resp: Other: clear to auscultation bilaterally no rales rhonchi or wheezes Cardio: Other: no S4; positive S1-S2; no S3 murmurs rubs or gallops GI: Other: mild tenderness mid epigastrium without rebound or guarding. Bowel sounds x4 quadrants. Minimal left lower quadrant pain to deep palpation Neuro: Other: cranial nerves 2-12 grossly intact as tested. Motor is 5/5 all extremities. Sensation intact cognition appropriate Objective Data Active Medications Acetaminophen (Acetaminophen 325 Mg Tablet) 650 mg PO Q6H PRN PRN Reason: Pain, Mild (Pain Scale 1-3) Last Admin: 06/29/21 09:21 Dose: 650 mg Documented by: TANIKA Famotidine (Famotidine/Pf 20 Mg/2 Ml Vial) 20 mg IVPUSH BID [facility] Last Admin: 06/30/21 08:08 Dose: 20 mg Documented by: CLAUDIO Hydromorphone HCl (Hydromorphone Hcl 0.5 Mg/0.5 Ml Syringe) 0.5 mg IVPUSH Q4H PRN; Protocol PRN Reason: Pain, Severe (Pain Scale 7-10) Last Admin: 06/30/21 09:38 Dose: 0.5 mg Documented by: CLAUDIO Potassium Chloride () 10 meq in 100 mls @ 100 mls/hr IV Q1H [facility] Stop: 06/30/21 11:44 Last Admin: 06/30/21 09:38 Dose: 100 mls/hr Documented by: CLAUDIO Lisinopril (Lisinopril 5 Mg Tablet) 5 mg PO DAILY [facility]; Protocol Melatonin (Melatonin 3 Mg Tablet) 6 mg PO BEDTIME PRN PRN Reason: Insomnia Last Admin: 06/29/21 23:32 Dose: 6 mg Documented by: GEMA Ondansetron HCl (Ondansetron Hcl 4 Mg/2 Ml Vial) 4 mg IVPUSH Q6H PRN PRN Reason: Nausea and Vomiting Last Admin: 06/29/21 13:55 Dose: 4 mg Documented by: TANIKA Pharmacy Consult (Consult Rx Perform Med Rec) 1 each MISCELLANE ONCE PRN PRN Reason: Consult order Senna (Sennosides 8.6 Mg Tablet) 17.2 mg PO BEDTIME PRN PRN Reason: Constipation Sodium Chloride (0.9 % Sodium Chloride Flush 3 Ml Syringe) 3 ml IVFLUSH QSHIFT [facility] Last Admin: 06/30/21 08:08 Dose: 3 ml Documented by: CLAUDIO Labs CBC & Chem 7: 06/30/21 04:04 06/30/21 04:04 Labs: Laboratory Results - last 24 hr 06/30/21 06/30/21 04:04 04:04 MCV 91.2 MCH 30.1 MCHC 33.0 RDW 13.6 Plt Count 239 MPV 10.0 Immature Gran % (Auto) 0.3 Neut % (Auto) 76.4 H Lymph % (Auto) 17.2 L [place] % (Auto) 4.8 Eos % (Auto) 1.3 Baso % (Auto) 0.0 Lymph # (Auto) 1.5 [place] # (Auto) 0.4 Eos # (Auto) 0.1 Baso # (Auto) 0.0 Abs Immat Gran (auto) 0.03 Absolute Neuts (auto) 6.8 Absolute Nucleated RBC 0.000 Nucleated RBC % (auto) 0.0 Anion Gap 11 L Estim Creat Clear Calc 115.3 Estimated GFR > 60 Fasting Glucose 116 H Calcium 8.3 L Magnesium 1.8 Total Bilirubin 0.3 AST 26 ALT 25 Alkaline Phosphatase 97 Total Protein 6.4 L Albumin 3.5 Assessment and Plan (1) Pancreatitis: Status: Acute (2) HTN (hypertension): Status: Acute Assessment and Plan: 36-year-old female with a past medical history of anxiety, depression, ADHD, bipolar, hypertension, history of pancreatitis, history of cholecystectomy presented to the hospital today with a chief complaint of abdominal pain. Noted to have recurrent pancreatitis. Pain returned yesterday with diet resolved this a.m. 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 . . MRI recommended Continue IV pain meds,full liquid diet: IV H 2 RA 2,HTN New DX..+FamHX. Start lisionpril 5mg daily. Adjust as indicated. GI prophylaxis: Pepcid DVT prophylaxis: SCD boots Code status: Full code Quality Stroke Does the patient have a stroke diagnosis?: No VTE Prior VTE?: No VTE Risk Level:: Medical - low VTE Device Contraindication: N/A - Device Ordered VTE Drug Contraindication: Treatment Not Indicated
[2021-06-30 11:10] VITALS: BP 159/92; PULSE 83; RESP 18; TEMP 36.4; O2SAT 97
[2021-06-30 11:17] VITALS: BP 159/92; PULSE 83
[2021-06-30] MEDS: lisinopriL 5 MG TABLET PO (11:17)
[2021-06-30] MEDS: Acetaminophen 325 MG TABLET 650 MG PO (14:04)
[2021-06-30 15:33] VITALS: BP 137/76; PULSE 64; RESP 17; TEMP 36.1; O2SAT 97
[2021-06-30 19:43] VITALS: BP 173/98; PULSE 72; RESP 17; TEMP 36.3; O2SAT 97
[2021-06-30] MEDS: ondansetron HCL 4 MG/2 ML VIAL IVPUSH (20:14)
[2021-06-30] MEDS: Melatonin 3 MG TABLET 6 MG PO (22:07)
[2021-07-01] VITALS: BP 139/94; PULSE 79; RESP 16; TEMP 36.6; O2SAT 97
[2021-07-01] MEDS: HYDROmorphone HCl 0.5 MG/0.5 ML SYRINGE IVPUSH (03:29)
[2021-07-01 04:49] LABS: MANUAL DIFF FLAG NO
[2021-07-01 04:53] LABS: Basophils Percent Auto 0.1 % (0-2); Eosinophils Absolute Auto 0.1 X10*3/uL (0.0-0.4); Eosinophils Percent Auto 1.1 % (0-4); Hematocrit 34.3 % (37.0-47.0); Imm Gran Abs Auto 0.03 X10*3/uL (0.00-0.03); Imm Gran Pct Auto 0.3 % (0.0-0.4); Lymphocytes Absolute Auto 1.3 X10*3/uL (1.2-4.9); Lymphocytes Percent Auto 15.2 % (20-40); Mean Corpuscular HGB Conc 32.1 g/dl (31.0-35.0); Mean Corpuscular Hemoglobin 29.3 pg (27.0-33.0); Mean Corpuscular Volume 91.5 fL (80.0-98.0); Mean Platelet Volume 9.9 fL (9.4-12.3); Monocytes Absolute Auto 0.5 X10*3/uL (0.1-1.2); Monocytes Percent Auto 5.6 % (2-11); Neutrophils Absolute Auto 6.8 x10*3/uL (2.0-8.3); Neutrophils Percent Auto 77.7 % (45-73); Platelet Count 259 X10*3/uL (160-400); Red Blood Count 3.75 X10*6/uL (4.20-5.50); Red Cell Distribution Width 13.9 % (11.0-16.0); White Blood Count 8.7 X10*3/uL (4.8-10.8)
[2021-07-01 05:33] LABS: Alanine Aminotransferase 28 U/L (0-31); Albumin Level 3.6 g/dL (3.5-5.0); Alkaline Phosphatase 101 U/L (39-117); Anion Gap 12 (12-20); Aspartate Amino Transferase 32 U/L (5-31); Bilirubin Total 0.3 mg/dL (0.0-1.0); Blood Urea Nitrogen 4 mg/dL (9-16); Calcium 8.8 mg/dL (8.4-10.2); Carbon Dioxide 23 mmol/L (22-29); Chloride 106 mmol/L (96-108); Estimated Glomerular Filt Rate > 60; Glucose Fasting 113 mg/dL (60-99); Potassium 3.5 mmol/L (3.3-5.1); Sodium 137 mmol/L (135-145); Total Protein 6.8 g/dL (6.5-8.0)
[2021-07-01] MEDS: Acetaminophen 325 MG TABLET 650 MG PO (07:46)
[2021-07-01] MEDS: 0.9 % Sodium Chloride Flush 3 ML SYRINGE IVFLUSH (07:47)
[2021-07-01] MEDS: Famotidine/PF 20 MG/2 ML VIAL IVPUSH (07:47)
[2021-07-01] MEDS: lisinopriL 5 MG TABLET PO (07:47)
[2021-07-01 08:00] VITALS: BP 154/101; PULSE 79; RESP 18; TEMP 36.4; O2SAT 98
--- NOTE | 2021-07-01 10:47 | PM.DS ---
DS: Providers Provider Date of Service: 07/01/21 Date of admission: 06/26/21 20:28 Primary care physician: Georges Lundberg MD Consults: 06/28/21 08:42 Consult to Gastroenterology Routine Consulting Provider: Desean Steve Reason for consultation: EToH pancreatitis Has provider been notified: No DS: Diagnosis Discharge Diagnosis (1) Pancreatitis: Status: Acute (2) HTN (hypertension): Status: Acute DS: Summary Hospital Course Hospital Course: 36-year-old female admitted 06/26/2021 with approximately 1 week of worsening mid abdominal pain that radiates to her back. She stated this feels similar to past episodes of pancreatitis, which he relates to drinking. She states she has not drank for some time however due to recent events had started drinking. She states she drank heavy for 2 or 3 days and then developed the back pain and stopped. She presented to the emergency room complaining of pain and nausea and vomiting. Initial CT done 06 26 demonstrated mild inflammatory stranding of fat in the region the pancreatic head. This finding was similar to past CT scans. She was admitted to the hospital and kept NPO with pain management. She was given IV fluids. She was seen in consultation by GI a who agreed with plan of treatment. Of note during her hospitalization she was found to be hypertensive and lisinopril was started. Diet was advanced however she developed some pain and was rescanned 06/29/2021 with improvement in original findings. her diet was advanced, another day of discharge she tolerated breakfast without any incident. At this point she is medically acceptable for discharge to follow-up with her PCP Time Spent with Patient Time attestation: Total time spent providing and/or coordinating discharge services: Discharge coordination time: Greater than 30 minutes Quality: Stroke Does the patient have a stroke diagnosis?: No Physical Exam Vital Signs: Vital Signs: Last Vital Signs Temp 97.6 F 07/01/21 08:00 Pulse 79 07/01/21 08:00 Resp 18 07/01/21 08:00 BP 154/101 H 07/01/21 08:00 Pulse Ox 98 07/01/21 08:00 BMI result Body Mass Index 31.6 Const: Other: awake alert Resp: Other: clear to auscultation bilaterally no rales rhonchi or wheezes Cardio: Other: no S4; positive S1-S2; no S3 murmurs rubs or gallops GI: Other: mild tenderness mid epigastrium without rebound or guarding. Bowel sounds x4 quadrants. Minimal left lower quadrant pain to deep palpation Neuro: Other: cranial nerves 2-12 grossly intact as tested. Motor is 5/5 all extremities. Sensation intact cognition appropriate DS: Data Data Completed and Pending Labs on day of discharge: Laboratory Results - last 24 hr 07/01/21 07/01/21 04:25 04:25 WBC 8.7 RBC 3.75 L Hgb 11.0 L Hct 34.3 L MCV 91.5 MCH 29.3 MCHC 32.1 RDW 13.9 Plt Count 259 MPV 9.9 Immature Gran % (Auto) 0.3 Neut % (Auto) 77.7 H Lymph % (Auto) 15.2 L [place] % (Auto) 5.6 Eos % (Auto) 1.1 Baso % (Auto) 0.1 Lymph # (Auto) 1.3 [place] # (Auto) 0.5 Eos # (Auto) 0.1 Baso # (Auto) 0.0 Abs Immat Gran (auto) 0.03 Absolute Neuts (auto) 6.8 Absolute Nucleated RBC 0.000 Nucleated RBC % (auto) 0.0 Sodium 137 Potassium 3.5 D Chloride 106 Carbon Dioxide 23 Anion Gap 12 BUN 4 L D Creatinine 0.70 Estim Creat Clear Calc 112.0 Estimated GFR > 60 Fasting Glucose 113 H Calcium 8.8 D Total Bilirubin 0.3 AST 32 H ALT 28 Alkaline Phosphatase 101 Total Protein 6.8 Albumin 3.6 Discharge Plan Discharge Patient Disposition: Home, Self-Care Discharge Diagnosis: Acute pancreatitis Referrals: Georges Lundberg MD [Primary Care Provider] - 1 Week Discharge Medications: New oxycodone 5 mg tablet 5 mg PO Q6H PRN (Reason: pain) Qty: 20 RF: 0 lisinopril 5 mg Tablet 10 mg PO DAILY Qty: 30 RF: 2 Discontinued melatonin 3 mg Tablet 6 mg PO BEDTIME RF: 0 Discharge Orders: Discharge Order (Routine); Ordered 07/01/21 Ordered By: Jonah Kidd Diet: advance to usual diet Activity on Discharge: As tolerated Stand Alone Forms: Patient Portal Discharge page, Work/School Release Care Plan Goals: advance diet as tolerated Health Concerns: follow-up PCP Plan of Treatment: dietary changes; oxycodone Assessment: improved
--- NOTE | 2021-07-01 11:06 | MHC.CM.PN ---
PT CLEARED TO DC HOME TODAY WITH NO SERVICES PT TO SELF ARRANGE TRANSPORTATION
[2021-07-01 21:40] LABS: Immunoglobulin G Subclass 1 757 mg/dL (382-929); Immunoglobulin G Subclass 2 511 mg/dL (241-700); Immunoglobulin G Subclass 3 140 mg/dL (22-178); Immunoglobulin G Subclass 4 17.7 mg/dL (4-86); Immunoglobulin G Total 1488 mg/dL (600-1640)
== END 2021-07-01 11:58 | disposition home or self-care (01) | DRG 282 ==
LOC: HO.ED 19:03 → HO.EDOVER 20:40 → HO.S3 06-27 11:01
PROVIDERS: Nurse Practitioner Family; Admitting Provider Hospitalist; Emergency Provider Internal Medicine; PCP Internal Medicine; Visit Provider Hospitalist
DX: K85.20 Alcohol induced acute pancreatitis without necrosis or infection (principal); F31.9 Bipolar disorder, unspecified; I10 Essential (primary) hypertension; F90.9 Attention-deficit hyperactivity disorder, unspecified type; Z72.89 Other problems related to lifestyle; Z20.822 Contact with and (suspected) exposure to COVID-19; Z79.899 Other long term (current) drug therapy
CPT/HCPCS: 36415; 74177; 80048; 80053; 81003; 82784; 83690; 83735; 84702; 85025; 87635; 96361; 96374; 96375; 96376; 99285; J1170; J2270; J2405; J2550; Q9967

== ENCOUNTER 2021-07-24 13:17 | Outpatient (REF) | payer OTHER, SELFPAY ==
[2021-07-24 15:54] LABS: COVID-19 Test Positive (Negative)
== END 2021-07-24 13:18 | disposition home or self-care (01) ==
LOC: HO.LAB 13:17
PROVIDERS: Visit Provider Internal Medicine
DX: Z20.822 Contact with and (suspected) exposure to COVID-19 (principal)
CPT/HCPCS: 87635; C9803

== ENCOUNTER 2021-08-05 11:50 | Outpatient (REF) | payer OTHER, SELFPAY ==
[2021-08-05 12:53] LABS: Binax Internal Control QC Valid; Binax Now Covid-19 Ag Negative (Negative)
== END 2021-08-05 11:51 | disposition home or self-care (01) ==
LOC: HO.LAB 11:50
PROVIDERS: Visit Provider Internal Medicine
DX: Z20.822 Contact with and (suspected) exposure to COVID-19 (principal)
CPT/HCPCS: C9803

== ENCOUNTER 2021-08-21 13:54 | Emergency (ER) | payer OTHER, SELFPAY ==
--- NOTE | ~2021-08-21 | XR_ITS ---
EXAMINATION: LEFT ANKLE AND LEFT TIBIA AND FIBULA. CLINICAL INFORMATION: Fall COMPARISON: None TECHNIQUE: 2 views left tibia and fibula. 4 views left ankle. FINDINGS: LEFT ANKLE: The ankle mortise and subtalar joints are normal. There is a small calcaneal heel and retrocalcaneal enthesophyte. No visible acute fracture or dislocation seen. LEFT TIBIA AND FIBULA: There is no visible acute fracture, dislocation or bony abnormality. The soft tissues are normal. XR/XR tibia fibula LT 2V IMPRESSION: Unremarkable left ankle except for a small calcaneal and retrocalcaneal enthesophyte. Unremarkable left tibia and fibula.
--- NOTE | ~2021-08-21 | US_ITS ---
EXAMINATION: LEFT LOWER EXTREMITY ULTRASOUND CLINICAL INFORMATION: Left lower extremity pain after fall on ice COMPARISON: None TECHNIQUE: Ultrasound was performed with a linear transducer in the area of clinical concern the left medial and lateral ankle. FINDINGS: There is a small fluid collection in the left lateral ankle, possibly a joint effusion that measures 1.6 x 1.7 x 0.7 cm. Soft tissue swelling is present above this level. No other abnormality is seen. US/US extremity nonvascular hammer IMPRESSION: Small fluid collection adjacent to the left lateral ankle, possibly a small joint effusion.
--- NOTE | ~2021-08-21 | XR_ITS ---
EXAMINATION: LEFT ANKLE AND LEFT TIBIA AND FIBULA. CLINICAL INFORMATION: Fall COMPARISON: None TECHNIQUE: 2 views left tibia and fibula. 4 views left ankle. FINDINGS: LEFT ANKLE: The ankle mortise and subtalar joints are normal. There is a small calcaneal heel and retrocalcaneal enthesophyte. No visible acute fracture or dislocation seen. LEFT TIBIA AND FIBULA: There is no visible acute fracture, dislocation or bony abnormality. The soft tissues are normal. XR/XR ankle LT min 3V IMPRESSION: Unremarkable left ankle except for a small calcaneal and retrocalcaneal enthesophyte. Unremarkable left tibia and fibula.
[2021-08-21 14:02] VITALS: BP 138/83; PULSE 109; RESP 20; TEMP 37; O2SAT 100; BMI 30.5
--- NOTE | 2021-08-21 15:15 | ED_ITS ---
HPI - Extremity Injury (Lower) General Chief Complaint: Fall Stated Complaint: Fall Time Seen by Provider: 08/21/21 15:14 Source: patient Mode of arrival: ambulatory Limitations: no limitations History of Present Illness HPI Narrative: 36 y/o female with history of HTN presenting to the ER with left lower leg pain s/p fall on the ice earlier today. She reports when she slipped her left lower leg went under her and she fell directly on it. When she tried to get up she fell back onto the same leg. She has been unable to walk on her left leg since. She reports the pain is located at the base of her lower leg on the posterior aspect as well as the anterior ankle joint. She is unable to dorsiflex or plantarflex but can wiggle her toes. She reports bruising to her calf. No numbness or tingling just pain. complaint: leg injury and ankle injury Onset (ago): hour(s) Type of Injury: blunt Place: home Severity: severe Severity scale (1-10): 9 Relieving factors: immobilization Exacerbating factors: weight bearing, movement and palpation Context: fall Associated symptoms: unable to bear weight Other symptoms: none Related Data Previous Rx's Medication Instructions Recorded lisinopril 5 mg tablet 10 mg PO DAILY #30 tab 07/01/21 oxycodone 5 mg tablet 5 mg PO Q6H PRN #20 tab 07/01/21 ibuprofen 600 mg tablet 600 mg PO Q8H PRN #20 tab 08/21/21 oxycodone 5 mg tablet 5 mg PO Q6H PRN #10 tab 08/21/21 Allergies Allergy/AdvReac Type Severity Reaction Status Date / Time osborne [CHERRIES] Allergy Intermediate UNKNOWN Verified 06/26/21 11:36 red dye [RED DYE] AdvReac Mild DIARRHEA Verified 06/26/21 11:36 Review of Systems Verdana 4l Review of Systems: Verdana 4d Verdana 4d Constitutional: No Fever, No Chills Cardiovascular: No Chest Pain, No SOB Gastrointestinal: No Nausea, No Vomiting,No abdominal Pain Musculoskeletal: + joint pain, N+ Myalgias Skin: No Skin Lesions, No rash Neuro: No Weakness, No NumbnessNumbness, No Dizziness, No Headache Psych: + Anxiety/Panic Heme/Lymph: + Bruising, No Lymphadenopathy PMFSH Past Medical History Medical History ADHD Bipolar 1 disorder Depression Hypertension Surgical History Hx of cholecystectomy Status post cholecystectomy Social History Social History Household Members: Significant Other Housing: Apartment Do you presently have visiting nurse or other home services: No Patient Tobacco Use Status: Never used Tobacco Second Hand Smoke Exposure: No Advance Directives: No Advance Directives Information Provided: No Patient : No service: No Physical Exam Verdana 4l Vital Signs: Verdana 4d Verdana 4d Vital Signs: Verdana 4d Verdana 4Bd Last Vital Signs Verdana 4d Program Planner New 4d Program Planner New 4d Temp 98.6 F 08/21/21 14:02 Program Planner New 4d Pulse 78 08/21/21 17:17 Program Planner New 4d Resp 16 08/21/21 17:17 BP 131/79 08/21/21 17:17 Pulse Ox 96 08/21/21 17:17 BMI result Body Mass Index 30.5 Appearance: Alert. Oriented X3. Appears to be in pain HEENT: normal inspection CVS: Normal heart rate and rhythm. Pulses normal. Respiratory: No respiratory distress. Skin: Skin warm and dry. Normal skin color. Normal skin turgor. No rashes. Extremities: left lower leg small area of ecchymosis on the middle of calf with tenderness of the calf and distal lower leg. unable to plantar or dorsiflex at all. tenderness to the medial ankle joint. no gross deformity. warm and well perfused. NV intact. Neuro: Oriented X 3. No motor deficit. No sensory deficit. Gait not tested due to pain Course Course Course Narrative: 36 y/o female presents to the ER with left lower leg pain s/p fall today. Ecchymosis on posterior LLE noted with significant tenderness. Achilles tendon is intact on exam. She cannot dorsiflex or plantar flex. XRs of the tib/fib and ankle are negative for acute fracture. Concern for possible soft tissue, muscle, tendon injury. Will get ultrasound of the soft tissues. She will most likely need outpatient ortho referral and MRI. Reevaluation(s) Reevaluation #1: US showing only a possible ankle joint effusion. Pain persists after oxycodone, will give another dose and plan to splint and refer to orthopedics. Patient agrees with plan. Crutches training provided. Critical Care Time Critical Care Time Critical Care Time: No Discharge Plan Discharge Clinical Impression: Contusion of left calf, Gastrocnemius muscle strain Patient Disposition: Home, Self-Care Instructions: Muscle Strain (ED), Contusion in Adults (ED) Additional Instructions: Your x-rays today did not show any broken bones. There is concern for soft tissue injury including a possible muscle, tendon or ligament injury. Recommend wearing the splint applied until seen by Orthopedics. Name and number below - call tomorrow for an appointment. Elevate your leg whenever possible. Take the prescribed medications as directed. If you develop new or worsening symptoms call 911 or come back to the ER for further evaluation. Prescriptions: New oxycodone 5 mg tablet 5 mg PO Q6H PRN (Reason: pain) Qty: 10 0RF ibuprofen 600 mg tablet 600 mg PO Q8H PRN (Reason: pain) Qty: 20 0RF No Action lisinopril 5 mg Tablet 10 mg PO DAILY Qty: 30 2RF Protocol: Hold for SBP< HOLD for SBP < : 90 oxycodone 5 mg tablet 5 mg PO Q6H PRN (Reason: pain) Qty: 20 0RF Referrals: Mickey Sue PA-C [Physician Merchandiser Season[facility]] - 1 day (left calf injury) Stand Alone Forms: Work/School Release Interventions: ED Discharge Assessment Last Done: 08/21/21 18:34 Discharge Date/Time: 08/21/21 18:36
[2021-08-21] MEDS: Ketorolac Tromethamine 30 MG/ML VIAL IM (15:35)
[2021-08-21] MEDS: oxyCODONE HCl Immed Release 5 MG TABLET PO ×2 (15:35→17:32)
[2021-08-21 16:47] VITALS: RESP 17
[2021-08-21 17:17] VITALS: BP 131/79; PULSE 78; RESP 16; O2SAT 96
== END 2021-08-21 18:36 | disposition home or self-care (01) ==
PROVIDERS: Emergency Provider Emergency Medicine Emergency Medical Services; PCP Internal Medicine
DX: S80.12XA Contusion of left lower leg, initial encounter (principal); S96.912A Strain of unspecified muscle and tendon at ankle and foot level, left foot, initial encounter; M79.605 Pain in left leg; W01.0XXA Fall on same level from slipping, tripping and stumbling without subsequent striking against object, initial encounter; Y93.9 Activity, unspecified; Y92.9 Unspecified place or not applicable; Y99.9 Unspecified external cause status; Z79.899 Other long term (current) drug therapy
CPT/HCPCS: 29505; 73590; 73610; 76882; 96372; 99284; J1885

== ENCOUNTER → 2021-08-28 15:08 | Outpatient (BNVA) | payer OTHER, SELFPAY | PROVIDERS: PCP Internal Medicine; Visit Provider Physician Assistant | DX: S93.402A Sprain of unspecified ligament of left ankle, initial encounter (principal) | CPT/HCPCS: 99202 ==

== ENCOUNTER 2021-11-05 19:03 | Emergency (ER) | payer OTHER, SELFPAY ==
--- NOTE | 2021-11-05 | ECG_ITS ---
Test Reason : chest pain Blood Pressure : / mmHG Vent. Rate : 137 BPM Atrial Rate : 137 BPM P-R Int : 082 ms QRS Dur : 072 ms QT Int : 362 ms P-R-T Axes : 022 -27 003 degrees QTc Int : 546 ms Sinus tachycardia with short MA Nonspecific T wave abnormality Abnormal ECG No previous ECGs available Referred By: Generic ED Physician Electronically Signed By:CHELSEY HOLLY MD
--- NOTE | ~2021-11-05 | XR_ITS ---
EXAMINATION: XR CHEST CLINICAL INFORMATION: Left-sided chest pain and cough COMPARISON: Chest radiograph 11/05/2006, 15 years ago TECHNIQUE: Frontal view of the chest was obtained. FINDINGS: No significant abnormality is noted involving the heart, lungs, mediastinum, bony thorax or soft tissues. The aorta is now mildly unfolded. XR/XR chest 1V IMPRESSION: No acute intrathoracic disease.
[2021-11-05 19:25] VITALS: PULSE 142; RESP 20; TEMP 38.4; O2SAT 95; BMI 33.6
[2021-11-05] MEDS: Ondansetron ODT 4 MG TAB.RAPDIS TRANSLINGU (19:38)
[2021-11-05 19:41] LABS: MANUAL DIFF FLAG NO
[2021-11-05 19:45] LABS: Basophils Percent Auto 0.1 % (0-2); Eosinophils Percent Auto 0.1 % (0-4); Hematocrit 43.6 % (37.0-47.0); Hemoglobin 14.5 g/dl (12.0-16.0); Imm Gran Abs Auto 0.03 X10*3/uL (0.00-0.03); Imm Gran Pct Auto 0.3 % (0.0-0.4); Lymphocytes Absolute Auto 0.8 X10*3/uL (1.2-4.9); Lymphocytes Percent Auto 8.2 % (20-40); Mean Corpuscular HGB Conc 33.3 g/dl (31.0-35.0); Mean Corpuscular Volume 90.3 fL (80.0-98.0); Mean Platelet Volume 9.8 fL (9.4-12.3); Monocytes Absolute Auto 0.7 X10*3/uL (0.1-1.2); Monocytes Percent Auto 7.3 % (2-11); Neutrophils Absolute Auto 7.9 x10*3/uL (2.0-8.3); Platelet Count 315 X10*3/uL (160-400); Red Blood Count 4.83 X10*6/uL (4.20-5.50); Red Cell Distribution Width 13.6 % (11.0-16.0); White Blood Count 9.4 X10*3/uL (4.8-10.8)
[2021-11-05 20:01] LABS: Anion Gap 16 (12-20); Blood Urea Nitrogen 3 mg/dL (9-16); Calcium 9.1 mg/dL (8.4-10.2); Carbon Dioxide 21 mmol/L (22-29); Chloride 103 mmol/L (96-108); Creatinine Clr Calc Pharmacy 91.9; Estimated Glomerular Filt Rate > 60; Glucose Random 118 mg/dL (60-115); Potassium 3.7 mmol/L (3.3-5.1); Sodium 136 mmol/L (135-145)
[2021-11-05 20:17] LABS: IDNOW Serial# 16C4AD1C; Influenza A Positive (Negative); Influenza B2 Negative (Negative)
[2021-11-05] MEDS: Ibuprofen 400 MG TABLET PO (21:51)
--- NOTE | 2021-11-05 22:37 | ED.FEVER ---
HPI - Fever General Chief Complaint: Fever Stated Complaint: NAUSEA,VOMITING,PRODUCTIVE COUGH, FEVER FOR DAYS Time Seen by Provider: 11/05/21 21:16 Source: patient Mode of arrival: ambulatory Limitations: no limitations History of Present Illness HPI Narrative: 36 yo female with history of HTN, alcoholic pancreatitis, obesity, s/p cholecystectomy who presents to the ER with 2 days of nausea, vomiting, diarrhea coughing, & intermittent fevers and chills. She also reports epigastric pain that radiates up into her LUQ and left chest when she has coughing fits. She has been taking Tylenol and ibuprofen for pain and fevers with minimal improvement. She reports the pain in her epigastric area and left chest are different than her prior episode of pancreatitis. Last alcoholic drink was [place] 2 days ago. She states she also has been having body aches and headaches. She has been unable to keep anything down today so she came to the ER for further evaluation. MD elicited complaint: fever Onset (ago): day(s) (2) Exacerbating factors: nothing Relieving factors: acetaminophen and ibuprofen Associated symptoms: chills, myalgias, headache, cough, chest pain, shortness of breath, abdominal pain, nausea, vomiting and diarrhea Treatments prior to arrival fever: acetaminophen and ibuprofen Related Data Previous Rx's Medication Instructions Recorded lisinopril 5 mg tablet 10 mg PO DAILY #30 tab 07/01/21 oxycodone 5 mg tablet 5 mg PO Q6H PRN #20 tab 07/01/21 ibuprofen 600 mg tablet 600 mg PO Q8H PRN #20 tab 08/21/21 oxycodone 5 mg tablet 5 mg PO Q8H PRN #21 tab 08/29/21 Allergies Allergy/AdvReac Type Severity Reaction Status Date / Time osborne [CHERRIES] Allergy Intermediate UNKNOWN Verified 08/28/21 15:20 red dye [RED DYE] AdvReac Mild DIARRHEA Verified 08/28/21 15:20 Review of Systems Review of Systems: Constitutional: + Fever, + Chills ENT/Mouth: No sore throat, No Rhinorrhea, No Swallowing Difficulty Eyes: No Eye Pain, No Swelling, No Redness Cardiovascular: + Chest Pain, + SOB, No Orthopnea, No Edema Respiratory: + Cough, No Sputum, No Wheezing, + dyspnea Gastrointestinal: + Nausea, + Vomiting, + Diarrhea, + abdominal Pain, No Hematochezia, No Melena Genitourinary: No Dysuria, No Urinary Frequency, No Hematuria Musculoskeletal: No joint pain, + Myalgias Skin: No Skin Lesions, No rash Neuro: No Weakness, No Numbness, No Dizziness, + Headache Psych: No Anxiety/Panic, No Depression Heme/Lymph: No Bruising, No Lymphadenopathy Endocrine: No Polyuria, No Polydipsia PMFSH Past Medical History Medical History ADHD Bipolar 1 disorder Depression Hypertension Surgical History Hx of cholecystectomy Status post cholecystectomy Social History Social History (Updated 08/28/21 @ 15:21 by Leopoldo Yepez) Household Members: Significant Other Housing: Apartment Do you presently have visiting nurse or other home services: No Patient Tobacco Use Status: Never used Tobacco Second Hand Smoke Exposure: No Advance Directives: No Advance Directives Information Provided: No service: No Current occupation: rt handed Physical Exam Vital Signs: Vital Signs: Last Vital Signs Temp 99.3 F 11/06/21 00:14 Pulse 110 H 11/06/21 00:14 Resp 16 11/06/21 00:14 BP 117/75 11/06/21 00:14 Pulse Ox 96 11/06/21 00:14 BMI result Body Mass Index 33.6 Appearance: Alert. Oriented X3. No acute distress. Eyes: Pupils equal, round and reactive to light. ENT: Pharynx normal. Neck: Normal inspection. Neck supple. CVS: Tachycardic, heart rate 120, regular rhythm. Pulses normal. Respiratory: No respiratory distress. Bronchospastic cough noted. Breath sounds normal. Tender anterior chest wall the left side Abdomen: Softly distended with epigastric tenderness, left upper quadrant tenderness, no rebound or guarding. Normal +BS x4 Skin: Skin warm and dry. Normal skin color. Normal skin turgor. No rashes. Extremities: No lower extremity edema. Neuro: Oriented X 3. Grossly normal, nonfocal Course Course Course Narrative: 36-year-old female with a history of hypertension, pancreatitis, obesity, status post cholecystectomy coming to the ER with 2 days of nausea, vomiting, diarrhea, epigastric abdominal pain, cough, chest pain and shortness of breath. On arrival to the ER she is febrile and tachycardic. She is coughing and complaining of chills. Lab workup reveals a normal H&H of 14/43, baseline 11/34. Likely secondary to hemoconcentration and dehydration. Her BNP is unremarkable. Will check lipase & LFTs Reevaluation(s) Reevaluation #1: Patient was given oral Motrin and sublingual Zofran in triage. Upon reassessment of her vital signs she has improvement in her fever but she remains tachycardic to the 120s. EKG is sinus tachycardia without any ischemic changes. She is found to be influenza positive. She is ordered for 2 L of fluid. Tachycardia likely driven by dehydration and hypovolemia. Remains nauseous and complaints of left-sided chest pain epigastric pain. She is coughing which is making her more nauseous. Will give a dose of IV Zofran and IV morphine. Her lipase is normal. Pancreatitis less likely. LFTs mild elevated, most likely due to ETOH abuse. Bilirubins are normal, doubt retained CBD stone, no RUQ pain. Reevaluation #2: VS improving with IVF. Pain and nausea improved with fluids. She is feeling much better. Plan for d/c home once 2nd liter is completed. MDM - Fever Medical Records Attestation: I reviewed the patient's medical records. Lab Data Attestation: I reviewed the patient's lab results. Result diagrams: 11/05/21 19:36 11/05/21 19:36 Labs: Lab Results 11/05/21 11/05/21 11/05/21 Range/Units 19:36 19:36 19:36 WBC 9.4 (4.8-10.8) X10*3/uL RBC 4.83 D (4.20-5.50) X10*6/uL Hgb 14.5 D (12.0-16.0) g/dl Hct 43.6 D (37.0-47.0) % MCV 90.3 (80.0-98.0) fL MCH 30.0 (27.0-33.0) pg MCHC 33.3 (31.0-35.0) g/dl RDW 13.6 (11.0-16.0) % Plt Count 315 (160-400) X10*3/uL MPV 9.8 (9.4-12.3) fL Immature Gran % (Auto) 0.3 (0.0-0.4) % Neut % (Auto) 84.0 H (45-73) % Lymph % (Auto) 8.2 L (20-40) % Boundary % (Auto) 7.3 (2-11) % Eos % (Auto) 0.1 (0-4) % Baso % (Auto) 0.1 (0-2) % Lymph # (Auto) 0.8 L (1.2-4.9) X10*3/uL Boundary # (Auto) 0.7 (0.1-1.2) X10*3/uL Eos # (Auto) 0.0 (0.0-0.4) X10*3/uL Baso # (Auto) 0.0 (0.0-0.2) X10*3/uL Abs Immat Gran (auto) 0.03 (0.00-0.03) X10*3/uL Absolute Neuts (auto) 7.9 (2.0-8.3) x10*3/uL Absolute Nucleated RBC 0.000 (0.0-0.012) X10*3/uL Nucleated RBC % (auto) 0.0 (0.0-0.2) /100WBC Sodium 136 (135-145) mmol/L Potassium 3.7 (3.3-5.1) mmol/L Chloride 103 (96-108) mmol/L Carbon Dioxide 21 L (22-29) mmol/L Anion Gap 16 (12-20) BUN 3 L (9-16) mg/dL Creatinine 0.88 (0.5-1.4) mg/dL Estim Creat Clear Calc 91.9 Estimated GFR > 60 Random Glucose 118 H (60-115) mg/dL Calcium 9.1 (8.4-10.2) mg/dL Total Bilirubin 0.8 (0.0-1.0) mg/dL Direct Bilirubin 0.3 (0.0-0.5) mg/dL AST 130 H (5-31) U/L ALT 78 H (0-31) U/L Alkaline Phosphatase 132 H D (39-117) U/L Total Protein 8.1 H (6.5-8.0) g/dL Albumin 4.1 (3.5-5.0) g/dL Lipase 26 (8-78) U/L Influenza Type A (COLTEN) Positive A (Negative) Influenza Type B (COLTEN) Negative (Negative) Influenza A & B Note See Note ECG Data ECG #1: Attestation: I personally reviewed and interpreted this ECG as follows: ECG interpretation date: 11/05/21 ECG interpretation time: 23:27 Prior ECG tracings: available for review Interpretation: Sinus tachycardia with short [place] interval, heart rate 137 beats per minute, no ST segment elevations or depressions. Critical Care Time Critical Care Time Critical Care Time: Yes Total Critical Care Time: 35 Attestation: I have personally provided critical care time exclusive of time spent on separately billable procedures. Time includes review of lab data, radiology results, frequent bedside reassessments, and monitoring for potential decompensation. Intervention performed as documented. Discharge Plan Discharge Clinical Impression: Influenza Patient Disposition: Home, Self-Care Instructions: Influenza (DC) Additional Instructions: You were found to be positive for Influenza A. Treatment is supportive care - rest, drink plenty of fluids, and take over the counter cold and flu medications. Continue to take Motrin and Tylenol as needed for fevers and body aches. Take the prescribed medication as needed for nausea and vomiting. Recommend Pepto Bismol or Imodium as needed for upset stomach and diarrhea. Follow up with your doctor as needed. If you develop new or worsening symptoms call 911 or come back to the ER for further evaluation. Prescriptions: No Action oxycodone 5 mg tablet 5 mg PO Q8H PRN (Reason: pain) Qty: 21 0RF lisinopril 5 mg Tablet 10 mg PO DAILY Qty: 30 2RF Protocol: Hold for SBP< HOLD for SBP < : 90 oxycodone 5 mg tablet 5 mg PO Q6H PRN (Reason: pain) Qty: 20 0RF ibuprofen 600 mg tablet 600 mg PO Q8H PRN (Reason: pain) Qty: 20 0RF Referrals: Georges Lundberg III, MD [Primary Care Provider] - 1 week (Follow-up influenza, ran out of antihypertensive) Stand Alone Forms: Work/School Release
[2021-11-05] MEDS: 0.9 % Sodium Chloride 1,000 ML 999 ML IVCONT (22:54)
[2021-11-05 23:36] LABS: Lipase 26 U/L (8-78)
[2021-11-05] MEDS: Morphine Sulfate 4 MG/ML CARTRIDGE IVPUSH (23:38)
[2021-11-05] MEDS: ondansetron HCL 4 MG/2 ML VIAL IVPUSH (23:39)
[2021-11-06 00:08] LABS: Alanine Aminotransferase 78 U/L (0-31); Albumin Level 4.1 g/dL (3.5-5.0); Alkaline Phosphatase 132 U/L (39-117); Aspartate Amino Transferase 130 U/L (5-31); Bilirubin Direct 0.3 mg/dL (0.0-0.5); Bilirubin Total 0.8 mg/dL (0.0-1.0); Total Protein 8.1 g/dL (6.5-8.0)
[2021-11-06 00:14] VITALS: BP 117/75; PULSE 110; RESP 16; TEMP 37.4; O2SAT 96
[2021-11-06] MEDS: 0.9 % Sodium Chloride 1,000 ML 999 ML IVCONT (00:35)
== END 2021-11-06 01:08 | disposition home or self-care (01) ==
PROVIDERS: Physician Assistant; Emergency Provider Student in an Organized Health Care Education/Training Program; PCP Internal Medicine
DX: J11.1 Influenza due to unidentified influenza virus with other respiratory manifestations (principal); R50.9 Fever, unspecified; R05.9 Cough, unspecified; R51.9 Headache, unspecified; R07.89 Other chest pain; R06.02 Shortness of breath; R10.9 Unspecified abdominal pain; Z79.899 Other long term (current) drug therapy
CPT/HCPCS: 71045; 80048; 80076; 83690; 85025; 87502; 93005; 96361; 96374; 96375; 99284; 99291; J2270; J2405

== ENCOUNTER 2021-12-05 12:04 | Emergency (ER) | payer OTHER, SELFPAY ==
--- NOTE | ~2021-12-05 | XR_ITS ---
EXAMINATION: XR CHEST CLINICAL INFORMATION: Cough. Right-sided chest pain. COMPARISON: 11/05/2021 TECHNIQUE: 2 views of the chest were obtained. FINDINGS: Lungs are well-inflated and clear. Trachea is midline in position. No interstitial disease, consolidation or mass. No pleural effusion or pneumothorax. Cardiac silhouette and pulmonary vessels are normal in size. The mediastinum and yadi have normal contour. Moderate disc degenerative change at the L1-L2 level. Cholecystectomy clips in the upper abdomen. XR/XR chest 2V IMPRESSION: No evidence of pneumonia. No acute cardiopulmonary abnormality.
--- NOTE | ~2021-12-05 | CT_ITS ---
EXAMINATION: CT ABDOMEN AND PELVIS WITHOUT CONTRAST CLINICAL INFORMATION: epigastic pain, radiates to back, hx pancreatitis . COMPARISON: 06/29/2021. TECHNIQUE: Multidetector volumetric imaging was performed from the superior aspect of the liver through the pubic symphysis without contrast per request. Sagittal and coronal reformatted images were obtained on the technologist workstation. This CT examination was performed using dose optimization techniques as appropriate, variously including the following: *Automated exposure control *Adjustment of mA and/or kV according to patient size (this includes techniques or standardized protocols for targeted exams where dose is matched to indication/reason for exam; i.e. extremities or head) *Use of iterative reconstruction technique DLP: 916 mGy-cm. FINDINGS: LUNG BASES: The visualized lung bases are unremarkable. LIVER, GALLBLADDER, BILIARY TREE: Diffuse fatty infiltration of the liver is again seen. No focal hepatic lesion nor biliary ductal dilatation. Gallbladder surgically absent PANCREAS: Unremarkable. SPLEEN: Unremarkable. ADRENAL GLANDS: Unremarkable. KIDNEYS AND URETERS: The kidneys are normal in size, shape, and attenuation. No hydronephrosis, hydroureter, or calculi seen. No perinephric stranding. BLADDER: Unremarkable. GASTROINTESTINAL TRACT: The small and large bowel are unremarkable. The appendix is unremarkable. Note is again made of a soft tissue mass anterior to the coccyx which is been slowly progressively increasing in size currently measuring up to 2.9 cm maximally. When measured in similar orientation on the 06/29/2021 study this had measured approximately 2.9 cm in size, measured on the oldest available 11/05/2019 study this had measured approximately 2.2 cm. 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 ABDOMINAL WALL: No significant hernia is appreciated. LYMPHOVASCULAR STRUCTURES: No lymphadenopathy. The aorta is unremarkable.. PELVIC VISCERA: Unremarkable. OSSEUS STRUCTURES: Unremarkable. CT/CT abdomen pelvis wo con IMPRESSION: No acute intra-abdominal process seen. Specifically no complications of acute pancreatitis. Diffuse fatty infiltration liver is again noted. 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
[2021-12-05 12:15] VITALS: BP 104/64; BP 137/93; PULSE 86; PULSE 99; RESP 16; TEMP 36.8; O2SAT 99; BMI 31.8
--- NOTE | 2021-12-05 12:20 | ED_ITS ---
HPI - General Adult General Chief complaint: General Medical Stated complaint: R RIB FLANK PAIN W/COUGH,NO INJURY Time Seen by Provider: 12/05/21 12:15 Source: patient and EMS Mode of arrival: EMS Limitations: no limitations History of Present Illness HPI narrative: 36 yo female with history of alcoholic pancreatitis, HTN, s/p cholecystectomy, anxiety/depression, ADHD, bipolar disorder who presents to the ER with 3 days of right sided middle back pain that radiates to the right upper quadrant, and middle of her abdomen. It is worse with movement and coughing. She started coughing about 1 week ago without any fever, chills, sore throat, runny nose. She reports a few episodes of vomiting the last 3 days as well. No diarrhea or fevers. She reports intermittent ongoing alcohol use, 2 or 3 times per week rec ently. She is going through divorce and states she has been going through lot of stress. She recalls her prior pancreatitis pain to be different. MD complaint: right sided back and chest pain Onset (ago): day(s) (3) Location: back Radiation: abdomen Severity: severe Severity scale (1-10): 9 Quality: stabbing and aching Pain Consistency: constant Relieving factors: immobilization and rest Exacerbating factors: movement and other (coughing and palpation) Associated symptoms: chest pain, cough and nausea/vomiting Treatments prior to arrival: none Related Data Previous Rx's Medication Instructions Recorded lisinopril 5 mg tablet 10 mg PO DAILY #30 tab 07/01/21 oxycodone 5 mg tablet 5 mg PO Q6H PRN #20 tab 07/01/21 ibuprofen 600 mg tablet 600 mg PO Q8H PRN #20 tab 08/21/21 oxycodone 5 mg tablet 5 mg PO Q8H PRN #21 tab 08/29/21 ondansetron 4 mg disintegrating 4 mg PO Q6-8H PRN #10 tab 12/05/21 tablet oxycodone 5 mg tablet 5 mg PO Q8H PRN #6 tab 12/05/21 Allergies Allergy/AdvReac Type Severity Reaction Status Date / Time osborne [CHERRIES] Allergy Intermediate UNKNOWN Verified 08/28/21 15:20 red dye [RED DYE] AdvReac Mild DIARRHEA Verified 08/28/21 15:20 Review of Systems Review of Systems: Constitutional: No Fever, No Chills ENT/Mouth: No sore throat, No Rhinorrhea, No Swallowing Difficulty Cardiovascular: + Chest Pain, No SOB, No Orthopnea, No Edema Respiratory: +Cough, +Sputum, No Wheezing, No dyspnea Gastrointestinal: No Nausea, +Vomiting, No Diarrhea, + abdominal Pain, No Hematochezia, No Melena Genitourinary: No Dysuria, No Urinary Frequency, No Hematuria Musculoskeletal: No joint pain, No Myalgias Skin: No Skin Lesions, No rash Neuro: No Weakness, No Numbness, No Dizziness, No Headache Psych: + Anxiety/Panic, No Depression Heme/Lymph: No Bruising, No Lymphadenopathy Endocrine: No Polyuria, No Polydipsia PMFSH Past Medical History Medical History ADHD Bipolar 1 disorder Depression Hypertension Surgical History Hx of cholecystectomy Status post cholecystectomy Social History Social History (Updated 08/28/21 @ 15:21 by Leopoldo Yepez) Household Members: Significant Other Housing: Apartment Do you presently have visiting nurse or other home services: No Patient Tobacco Use Status: Never used Tobacco Second Hand Smoke Exposure: No Advance Directives: No Advance Directives Information Provided: No service: No Current occupation: rt handed Physical Exam ED Vital Signs: Vital Signs - 24 hr 12/05/21 12:15 12/05/21 14:27 12/05/21 15:28 Temperature 98.3 F 97.8 F Pulse Rate 86 88 87 Respiratory Rate 16 18 16 Blood Pressure 104/64 125/79 125/79 Pulse Oximetry 99 97 98 12/05/21 16:53 12/05/21 18:30 Temperature 98.3 F 97.8 F Pulse Rate 79 66 Respiratory Rate 17 16 Blood Pressure 125/88 129/84 Pulse Oximetry 97 98 BMI result Body Mass Index 31.8 Appearance: Alert. Oriented X3. No acute distress. Eyes: Pupils equal, round and reactive to light. ENT: Pharynx normal. Neck: Normal inspection. Neck supple. CVS: Normal heart rate and rhythm. Pulses normal. Respiratory: No respiratory distress. Breath sounds normal. Abdomen: Obese, Soft with RUQ and right lower rib tenderness, normal +BS x4 Back: normal inspection, middle thoracic area with significant soft tissue tenderness on the right Skin: Skin warm and dry. Normal skin color. Normal skin turgor. No rashes. Extremities: No lower extremity edema. Neuro: Oriented X 3. No motor deficit. No sensory deficit. Course Course Course Narrative: 36 yo female with history of alcoholic pancreatitis presenting to the ER with 1 week of cough, intermittently productive of white phlegm and development of sharp right sided back pain that radiates around to her right upper abdomen. Her physical exam is concerning for possible recurrence of pancreatitis. Reports ongoing ETOH use. Although she does have significant midthoracic tenderness on examination were consistent with muscle strain and spasm. Will give a dose of oxycodone, Toradol, Lidoderm and reassess. Will check lab work including LFTs and lipase. Reevaluation(s) Reevaluation #1: Patient reports minimal pain relief after the oxycodone and Toradol. Her lipase is normal with mild transaminitis. She is status post cholecystectomy in the past. The last time she had pancreatitis her lipase was also within normal limits. Will get CT scan of her abdomen for further evaluation of signs of pancreatitis, or fluid collections. IV fluids and morphine ordered for ongoing pain. Reevaluation #2: Patient continues to report severe pain mostly in the right flank despite IV morphine, oxycodone, Toradol and IV Dilaudid. Her CT scan was unremarkable, no changes in the pancreas, no ductal dilatation. Urinalysis still not completed but there was no hydronephrosis or abnormality seen on her CT scan. Unclear etiology of her pain. DDIMER even checked which was <150. Will repeat pain med and give trial of ativan. Case d/w Dr. Hutchinson who will reassess and determine dispo. He is tolerating p.o.. Anticipate DC home with pain control and GI follow-up. Medical Decision Making Lab Data Result diagrams: 12/05/21 12:56 12/05/21 12:56 Labs: Lab Results 12/05/21 12/05/21 12/05/21 Range/Units 12:51 12:51 12:56 WBC 8.7 (4.8-10.8) X10*3/uL RBC 4.21 (4.20-5.50) X10*6/uL Hgb 12.7 (12.0-16.0) g/dl Hct 38.2 (37.0-47.0) % MCV 90.7 (80.0-98.0) fL MCH 30.2 (27.0-33.0) pg MCHC 33.2 (31.0-35.0) g/dl RDW 13.6 (11.0-16.0) % Plt Count 275 (160-400) X10*3/uL MPV 10.3 (9.4-12.3) fL Immature Gran % (Auto) 0.3 (0.0-0.4) % Neut % (Auto) 77.8 H (45-73) % Lymph % (Auto) 14.9 L (20-40) % Kaufman % (Auto) 6.8 (2-11) % Eos % (Auto) 0.1 (0-4) % Baso % (Auto) 0.1 (0-2) % Lymph # (Auto) 1.3 (1.2-4.9) X10*3/uL Kaufman # (Auto) 0.6 (0.1-1.2) X10*3/uL Eos # (Auto) 0.0 (0.0-0.4) X10*3/uL Baso # (Auto) 0.0 (0.0-0.2) X10*3/uL Abs Immat Gran (auto) 0.03 (0.00-0.03) X10*3/uL Absolute Neuts (auto) 6.7 (2.0-8.3) x10*3/uL Absolute Nucleated RBC 0.000 (0.0-0.012) X10*3/uL Nucleated RBC % (auto) 0.0 (0.0-0.2) /100WBC D-Dimer High Sensitivty NG/ML Sodium (135-145) mmol/L Potassium (3.3-5.1) mmol/L Chloride (96-108) mmol/L Carbon Dioxide (22-29) mmol/L Anion Gap (12-20) BUN (9-16) mg/dL Creatinine (0.5-1.4) mg/dL Estim Creat Clear Calc Estimated GFR Random Glucose (60-115) mg/dL Calcium (8.4-10.2) mg/dL Magnesium (1.6-2.6) mg/dL Total Bilirubin (0.0-1.0) mg/dL Direct Bilirubin (0.0-0.5) mg/dL AST (5-31) U/L ALT (0-31) U/L Alkaline Phosphatase (39-117) U/L Troponin I High Sens (<3.5-17.0) ng/L Total Protein (6.5-8.0) g/dL Albumin (3.5-5.0) g/dL Lipase (8-78) U/L Beta HCG, Quant mIU/mL COVID-19 (ELODIA) Negative (Negative) COVID-19 Clin Com See Note Influenza Type A (COLTEN) Negative (Negative) Influenza Type B (COLTEN) Negative (Negative) Influenza A & B Note See Note 12/05/21 12/05/21 12/05/21 Range/Units 12:56 12:56 18:48 WBC (4.8-10.8) X10*3/uL RBC (4.20-5.50) X10*6/uL Hgb (12.0-16.0) g/dl Hct (37.0-47.0) % MCV (80.0-98.0) fL MCH (27.0-33.0) pg MCHC (31.0-35.0) g/dl RDW (11.0-16.0) % Plt Count (160-400) X10*3/uL MPV (9.4-12.3) fL Immature Gran % (Auto) (0.0-0.4) % Neut % (Auto) (45-73) % Lymph % (Auto) (20-40) % Kaufman % (Auto) (2-11) % Eos % (Auto) (0-4) % Baso % (Auto) (0-2) % Lymph # (Auto) (1.2-4.9) X10*3/uL Kaufman # (Auto) (0.1-1.2) X10*3/uL Eos # (Auto) (0.0-0.4) X10*3/uL Baso # (Auto) (0.0-0.2) X10*3/uL Abs Immat Gran (auto) (0.00-0.03) X10*3/uL Absolute Neuts (auto) (2.0-8.3) x10*3/uL Absolute Nucleated RBC (0.0-0.012) X10*3/uL Nucleated RBC % (auto) (0.0-0.2) /100WBC D-Dimer High Sensitivty < 150 NG/ML Sodium 137 (135-145) mmol/L Potassium 3.7 (3.3-5.1) mmol/L Chloride 102 (96-108) mmol/L Carbon Dioxide 26 (22-29) mmol/L Anion Gap 13 (12-20) BUN 3 L (9-16) mg/dL Creatinine 0.84 (0.5-1.4) mg/dL Estim Creat Clear Calc 93.7 Estimated GFR > 60 Random Glucose 127 H (60-115) mg/dL Calcium 9.1 (8.4-10.2) mg/dL Magnesium 2.0 (1.6-2.6) mg/dL Total Bilirubin 1.0 (0.0-1.0) mg/dL Direct Bilirubin 0.5 (0.0-0.5) mg/dL AST 158 H (5-31) U/L ALT 96 H (0-31) U/L Alkaline Phosphatase 145 H (39-117) U/L Troponin I High Sens < 3.5 (<3.5-17.0) ng/L Total Protein 7.1 (6.5-8.0) g/dL Albumin 3.4 L (3.5-5.0) g/dL Lipase 26 (8-78) U/L Beta HCG, Quant < 2 mIU/mL COVID-19 (ELODIA) (Negative) COVID-19 Clin Com Influenza Type A (COLTEN) (Negative) Influenza Type B (COLTEN) (Negative) Influenza A & B Note Critical Care Time Critical Care Time Critical Care Time: Yes Total Critical Care Time: 36 Attestation: I have personally provided critical care time exclusive of time spent on separately billable procedures. Time includes review of lab data, radiology results, multiple doses of IV medications to control pain, frequent bedside reassessments, and monitoring for potential decompensation. Intervention performed as documented. Discharge Plan Discharge Clinical Impression: Acute right flank pain Patient Disposition: Home, Self-Care Instructions: Flank Pain (ED) Additional Instructions: Your workup today was unremarkable. Recommend clear liquid diet for the next 48 hours. Slowly advanced her diet as tolerated. Take the prescribed medication as needed for pain. Recommend following up with your GI doctor soon as possible. If you develop new or worsening symptoms call 911 or come back to the ER for further evaluation. Prescriptions: New ondansetron 4 mg tablet,disintegrating 4 mg PO Q6-8H PRN (Reason: nausea and vomiting) Qty: 10 0RF oxycodone 5 mg tablet 5 mg PO Q8H PRN (Reason: severe pain (scale score 7-10)) Qty: 6 0RF No Action oxycodone 5 mg tablet 5 mg PO Q8H PRN (Reason: pain) Qty: 21 0RF lisinopril 5 mg Tablet 10 mg PO DAILY Qty: 30 2RF Protocol: Hold for SBP< HOLD for SBP < : 90 oxycodone 5 mg tablet 5 mg PO Q6H PRN (Reason: pain) Qty: 20 0RF ibuprofen 600 mg tablet 600 mg PO Q8H PRN (Reason: pain) Qty: 20 0RF
--- NOTE | 2021-12-05 12:24 | ECG_ITS ---
Test Reason : ABD PAIN Blood Pressure : / mmHG Vent. Rate : 085 BPM Atrial Rate : 085 BPM P-R Int : 148 ms QRS Dur : 082 ms QT Int : 430 ms P-R-T Axes : 000 -06 -14 degrees QTc Int : 511 ms Normal sinus rhythm Prolonged QT Abnormal ECG When compared with ECG of 05-NOV-2021 19:22, Vent. rate has decreased BY 52 BPM T wave inversion no longer evident in Anterior leads Referred By: Madina Ferrer Electronically Signed By:JESSE SPARROW
[2021-12-05] MEDS: Ketorolac Tromethamine 30 MG/ML VIAL IM (12:40)
[2021-12-05] MEDS: Lidocaine 4 % Patch ADH..PATCH 1 PATCH TRANSDERMA (12:41)
[2021-12-05] MEDS: oxyCODONE HCl Immed Release 5 MG TABLET PO (12:41)
[2021-12-05 13:02] LABS: MANUAL DIFF FLAG NO
[2021-12-05 13:05] LABS: Basophils Percent Auto 0.1 % (0-2); Eosinophils Percent Auto 0.1 % (0-4); Hematocrit 38.2 % (37.0-47.0); Hemoglobin 12.7 g/dl (12.0-16.0); Imm Gran Abs Auto 0.03 X10*3/uL (0.00-0.03); Imm Gran Pct Auto 0.3 % (0.0-0.4); Lymphocytes Absolute Auto 1.3 X10*3/uL (1.2-4.9); Lymphocytes Percent Auto 14.9 % (20-40); Mean Corpuscular HGB Conc 33.2 g/dl (31.0-35.0); Mean Corpuscular Hemoglobin 30.2 pg (27.0-33.0); Mean Corpuscular Volume 90.7 fL (80.0-98.0); Mean Platelet Volume 10.3 fL (9.4-12.3); Monocytes Absolute Auto 0.6 X10*3/uL (0.1-1.2); Monocytes Percent Auto 6.8 % (2-11); Neutrophils Absolute Auto 6.7 x10*3/uL (2.0-8.3); Neutrophils Percent Auto 77.8 % (45-73); Platelet Count 275 X10*3/uL (160-400); Red Blood Count 4.21 X10*6/uL (4.20-5.50); Red Cell Distribution Width 13.6 % (11.0-16.0); White Blood Count 8.7 X10*3/uL (4.8-10.8)
[2021-12-05 13:18] LABS: IDNOW Serial# 9DB6401D; Influenza A Negative (Negative); Influenza B2 Negative (Negative)
[2021-12-05 13:21] LABS: Troponin-I High Sensitivity < 3.5 ng/L (<3.5-17.0)
[2021-12-05 13:21] LABS: COVID-19 Test Negative (Negative); IDNOW Serial# 16C4AD1C
[2021-12-05 13:23] LABS: Alanine Aminotransferase 96 U/L (0-31); Albumin Level 3.4 g/dL (3.5-5.0); Alkaline Phosphatase 145 U/L (39-117); Anion Gap 13 (12-20); Aspartate Amino Transferase 158 U/L (5-31); Bilirubin Direct 0.5 mg/dL (0.0-0.5); Blood Urea Nitrogen 3 mg/dL (9-16); Calcium 9.1 mg/dL (8.4-10.2); Carbon Dioxide 26 mmol/L (22-29); Chloride 102 mmol/L (96-108); Creatinine Clr Calc Pharmacy 93.7; Estimated Glomerular Filt Rate > 60; Glucose Random 127 mg/dL (60-115); Lipase 26 U/L (8-78); Potassium 3.7 mmol/L (3.3-5.1); Sodium 137 mmol/L (135-145); Total Protein 7.1 g/dL (6.5-8.0)
--- NOTE | 2021-12-05 13:27 | PC.NURSE ---
EKG has been completed. it is saved in machine but has not transfered to chart yet
--- NOTE | 2021-12-05 13:41 | PC.NURSE ---
PT RESTING WITH CALLBELL WITHIN REACH. PT STATES THEY ARE STILL IN PAIN
[2021-12-05 14:27] VITALS: BP 125/79; PULSE 88; RESP 18; TEMP 36.6; O2SAT 97
[2021-12-05] MEDS: 0.9 % Sodium Chloride 1,000 ML 999 ML IVCONT (15:20)
[2021-12-05] MEDS: Morphine Sulfate 4 MG/ML CARTRIDGE IVPUSH (15:23)
[2021-12-05 15:28] VITALS: BP 125/79; PULSE 87; RESP 16; O2SAT 98
[2021-12-05 16:44] LABS: HCG Quantitative < 2 mIU/mL
[2021-12-05 16:53] VITALS: BP 125/88; PULSE 79; RESP 17; TEMP 36.8; O2SAT 97
[2021-12-05] MEDS: HYDROmorphone HCl 1 MG/ML SYRINGE IVPUSH ×2 (17:29→21:13)
[2021-12-05] MEDS: ondansetron HCL 4 MG/2 ML VIAL IVPUSH (17:30)
[2021-12-05 18:30] VITALS: BP 129/84; PULSE 66; RESP 16; TEMP 36.6; O2SAT 98
[2021-12-05 19:04] LABS: D Dimer High Sensitivity < 150 NG/ML
[2021-12-05] MEDS: LORazepam 2 MG/ML VIAL 1 MG IVPUSH (21:13)
[2021-12-05 21:28] LABS: Appearance Urine HAZY; Color Urine YELLOW; Glucose Urine UA 100 MG/DL (NEG); Leukocyte Esterase Urine NEG (NEG); Nitrite Urine NEG (NEG); Specific Gravity - Urine >= 1.030 (1.005-1.025); UACC Culture Trigger NO; Urine Blood TRACE (NEG); Urine Ketones 5 MG/DL (NEG); Urine Protein 2+ MG/DL (NEG-TRACE)
[2021-12-05 21:31] LABS: Amorphous Sediment Urine 2+ /LPF; Bacteria Urine 1+ /LPF; RBC Urine 0-2 /HPF (0); Squamous Epithelial Cell Urine 1+ /LPF; WBC Urine 0 /HPF (0-4)
[2021-12-05 22:25] VITALS: BP 130/88; PULSE 80; RESP 16; TEMP 36.8; O2SAT 94
== END 2021-12-05 22:32 | disposition home or self-care (01) ==
PROVIDERS: Physician Assistant; Emergency Provider Internal Medicine; PCP Internal Medicine
DX: R10.13 Epigastric pain (principal); M54.50 Low back pain, unspecified; R05.9 Cough, unspecified; R07.89 Other chest pain; K85.90 Acute pancreatitis without necrosis or infection, unspecified; Z79.899 Other long term (current) drug therapy; Z20.822 Contact with and (suspected) exposure to COVID-19
CPT/HCPCS: 36415; 71046; 74176; 80048; 80076; 81001; 83690; 83735; 84484; 84702; 85025; 85379; 87502; 87635; 93005; 96361; 96372; 96374; 96375; 96376; 99284; 99291; J1170; J1885; J2060; J2270; J2405

== ENCOUNTER 2021-12-24 01:05 | Emergency (ER) | payer OTHER, SELFPAY ==
--- NOTE | 2021-12-24 | ECG_ITS ---
Test Reason : CHEST PAIN Blood Pressure : / mmHG Vent. Rate : 111 BPM Atrial Rate : 111 BPM P-R Int : 150 ms QRS Dur : 078 ms QT Int : 368 ms P-R-T Axes : 021 -11 -02 degrees QTc Int : 500 ms Sinus tachycardia Nonspecific T wave abnormality Abnormal ECG When compared with ECG of 05-DEC-2021 13:03, Nonspecific T wave abnormality now evident in Anterolateral leads Referred By: Generic ED Physician Electronically Signed By:JESSE SPARROW
--- NOTE | ~2021-12-24 | CT_ITS ---
EXAMINATION: CT ANGIOGRAM OF THE CHEST WITH AND WITHOUT CONTRAST (CT PULMONARY ANGIOGRAM FOR PE) CLINICAL INFORMATION: Reason for Exam chest pain, ddimer elevated COMPARISON: None TECHNIQUE: Prior to contrast administration, noncontrast localization images were obtained. Subsequently, multidetector volumetric imaging was performed from the thoracic inlet to below the diaphragms following the administration of 85 mL Omnipaque 350 intravenous contrast. No contrast reaction reported Sagittal, coronal, and MIP oblique sagittal reformatted images were obtained on the CT workstation, uploaded to PACS, and reviewed. This CT examination was performed using dose optimization techniques as appropriate, variously including the following: *Automated exposure control *Adjustment of mA and/or kV according to patient size (this includes techniques or standardized protocols for targeted exams where dose is matched to indication/reason for exam; i.e. extremities or head) *Use of iterative reconstruction technique Total exam dose-length product 1034 mGy-cm FINDINGS: QUALITY OF STUDY/CONTRAST BOLUS: Satisfactory. PULMONARY ARTERIES: No central or segmental pulmonary emboli. THORACIC AORTA: No aneurysm or dissection. LUNG: No focal consolidation, nodules or masses. PLEURA: No pleural effusion or pneumothorax. MEDIASTINUM: Normal heart size. No pericardial effusion. No hilar or mediastinal lymphadenopathy. No evidence of septal bowing or right heart strain. CHEST WALL/AXILLA: No axillary or internal mammary lymphadenopathy. OSSEOUS STRUCTURES: Healing right posterolateral sixth rib fracture. Callus formation and underlying pleural reaction. UPPER ABDOMEN: Hepatic steatosis. CT/CT angio chest PE protocol IMPRESSION: * No pulmonary embolism. * No aortic aneurysm or dissection. * No acute pulmonary parenchymal abnormalities. * Healing right posterolateral sixth rib fracture with underlying pleural reaction. * Hepatic steatosis. VTE: negative
--- NOTE | ~2021-12-24 | CT_ITS ---
EXAMINATION: CT HEAD WITHOUT CONTRAST CLINICAL INFORMATION: Paresthesias COMPARISON: 08.31.2016 TECHNIQUE: Contiguous axial imaging was performed from the skull base to vertex without intravenous administration of contrast. This CT examination was performed using dose optimization techniques as appropriate, variously including the following: *Automated exposure control *Adjustment of mA and/or kV according to patient size (this includes techniques or standardized protocols for targeted exams where dose is matched to indication/reason for exam; i.e. extremities or head) *Use of iterative reconstruction technique DLP: 660 mGy-cm FINDINGS: There is no evidence of acute intracranial hemorrhage or territorial infarction. No abnormal mass effect or midline shift is seen. Saleem to white matter differentiation is well preserved. No extra-axial fluid collections are identified. The ventricles are normal in size. There is no abnormal attenuation within the brain parenchyma. The osseous structures and soft tissues are normal. The mastoid air cells and visualized portions of the paranasal sinuses are well aerated. CT/CT head/brain wo con IMPRESSION: No acute intracranial pathology.
[2021-12-24 01:13] VITALS: BP 141/91; PULSE 121; RESP 22; TEMP 36.6; O2SAT 97; BMI 33.6
[2021-12-24 01:34] LABS: MANUAL DIFF FLAG NO
[2021-12-24 01:35] LABS: Basophils Percent Auto 0.1 % (0-2); Eosinophils Absolute Auto 0.1 X10*3/uL (0.0-0.4); Eosinophils Percent Auto 0.8 % (0-4); Hematocrit 41.6 % (37.0-47.0); Hemoglobin 13.7 g/dl (12.0-16.0); Imm Gran Abs Auto 0.02 X10*3/uL (0.00-0.03); Imm Gran Pct Auto 0.2 % (0.0-0.4); Lymphocytes Absolute Auto 1.6 X10*3/uL (1.2-4.9); Lymphocytes Percent Auto 18.3 % (20-40); Mean Corpuscular HGB Conc 32.9 g/dl (31.0-35.0); Mean Corpuscular Hemoglobin 29.5 pg (27.0-33.0); Mean Corpuscular Volume 89.7 fL (80.0-98.0); Mean Platelet Volume 9.8 fL (9.4-12.3); Monocytes Absolute Auto 0.5 X10*3/uL (0.1-1.2); Monocytes Percent Auto 5.5 % (2-11); Neutrophils Absolute Auto 6.5 x10*3/uL (2.0-8.3); Neutrophils Percent Auto 75.1 % (45-73); Platelet Count 338 X10*3/uL (160-400); Red Blood Count 4.64 X10*6/uL (4.20-5.50); Red Cell Distribution Width 13.9 % (11.0-16.0); White Blood Count 8.7 X10*3/uL (4.8-10.8)
--- NOTE | 2021-12-24 01:36 | ED.CHESTPAIN ---
HPI - Chest Pain General Chief Complaint: Chest Pain Stated Complaint: legs & L side numb Time Seen by Provider: 12/24/21 01:20 Source: patient and old records reviewed Mode of arrival: ambulatory Limitations: no limitations History of Present Illness HPI narrative: 36 yo female with hx of anxiety, depression, HTN, pancreatitis just suffered the loss of her grandfather one week ago she has been anxious and depressed she notes two days of chest pain as well as feeling leg cramps and then pain/tingling in the back of her legs that started in the upper legs and then traveled down. No recent vaccines/medications/GI illness. This has never happened before. She notes she has been very stressed out lately. No recent back pain or injury. MD complaint: chest pain Onset (ago): day(s) (1) Timing of current episode: episodic Prior episodes: Yes Onset: during rest and during exertion Pain location: left chest Pain radiation: none Severity: moderate Quality: aching Relieving factors: nothing Exacerbating factors: movement Context: other (also c/o leg pain and tingling (upper and posterior distribution)) Associated symptoms: nausea, vomiting, dyspnea, sense of impending doom and other (leg pain) Treatment prior to arrival: none Related Data Previous Rx's Medication Instructions Recorded lisinopril 5 mg tablet 10 mg PO DAILY #30 tab 07/01/21 oxycodone 5 mg tablet 5 mg PO Q6H PRN #20 tab 07/01/21 ibuprofen 600 mg tablet 600 mg PO Q8H PRN #20 tab 08/21/21 oxycodone 5 mg tablet 5 mg PO Q8H PRN #21 tab 08/29/21 ondansetron 4 mg disintegrating 4 mg PO Q6-8H PRN #10 tab 12/05/21 tablet oxycodone 5 mg tablet 5 mg PO Q8H PRN #6 tab 12/05/21 cyclobenzaprine 10 mg tablet 10 mg PO TID PRN #14 tab 12/24/21 ondansetron 4 mg disintegrating 4 mg PO Q8H PRN #20 tab 12/24/21 tablet Allergies Allergy/AdvReac Type Severity Reaction Status Date / Time osborne [CHERRIES] Allergy Intermediate UNKNOWN Verified 08/28/21 15:20 red dye [RED DYE] AdvReac Mild DIARRHEA Verified 08/28/21 15:20 Review of Systems Review of Systems: Constitutional : No Weight loss, No Fever, pos Chills, pos Fatigue, pos Malaise ENT/Mouth : No sore throat, No Rhinorrhea Eyes: No Eye Pain, No Swelling, No Redness Cardiovascular : pos Chest Pain, pos SOB, No Dyspnea on Exertion, No Orthopnea, No Edema, No Palpitations Respiratory : No Cough, No Sputum, No Wheezing Gastrointestinal : No Nausea, No Vomiting, No Diarrhea, No Constipation, No abdominal Pain, No Hematochezia, No Melena Genitourinary : No Dysuria, No Urinary Frequency, No Hematuria, Musculoskeletal : No joint pain, pos Myalgias, No Joint Swelling Skin : No Skin Lesions, No rash Neuro :pos Weakness, pos Numbness, No Dizziness, No Headache Psych : pos Anxiety/Panic, pos Depression Heme/Lymph: No Bruising, No Bleeding,No Lymphadenopathy Endocrine : No Polyuria, No Polydipsia All other systems reviewed and are negative [facility] Past Medical History Attestation statement: The following information was validated with the patient. Medical History (Updated 12/24/21 @ 03:41 by Chloe Villela DO) ADHD Bipolar 1 disorder Depression Hypertension Pancreatitis Surgical History Hx of cholecystectomy Status post cholecystectomy Social History Social History Household Members: Significant Other Housing: Apartment Do you presently have visiting nurse or other home services: No Patient Tobacco Use Status: Never used Tobacco Second Hand Smoke Exposure: No Advance Directives: No service: No Current occupation: rt handed Physical Exam Vital Signs: Vital Signs: Last Vital Signs Temp 98.1 F 12/24/21 04:00 Pulse 102 H 12/24/21 04:00 Resp 18 12/24/21 04:00 BP 120/78 12/24/21 04:00 Pulse Ox 97 12/24/21 04:00 BMI result Body Mass Index 33.6 Appearance: Alert. Oriented X3. No acute distress. Anxious, tearful dry heaving Eyes: Pupils equal, round and reactive to light. ENT: Pharynx normal. Neck: Normal inspection. Neck supple. CVS: tachycardic heart rate and rhythm. Pulses normal. Respiratory: No respiratory distress. Breath sounds normal. Abdomen: Soft and nontender. Skin: Skin warm and dry. Normal skin color. Normal skin turgor. Extremities: No lower extremity edema. No calf ttp Neuro: Oriented X 3. No motor deficit. No sensory deficit. Can feel hands but feels like her legs have decreased sensation more upper leg and posterior in distribution 5/5 strength achilles 2+ DTR, patella bilaterally 2 DTR, no clonus, compartments are soft compressible Course Course Course Narrative: ddimer above VTE threshold - CTA ordered. LFTs likely up due to ETOH patient admits to drinking, patient's chest and nausea resolved but still states she has blake horse in the back of her leg negative head CT negative PE, EKG unchanged and trop negative with 2 days of symptoms declines Crisis evaluation states she has a counselor on repeat exam patient states the symptoms are actually in the left leg with pain in hamstring area and that she has tingling in back of L knee and it makes it painful to walk - this wouldn't be consistent with GBS. Shashank can ambulate but she is limping due to pain. She denies trauma or injury to that leg, bounding pulses in foot. Can follow up with PCP. I did wrap her L leg with jose roberto wrap to see if that provides some relief. on discharge I witnessed the patient walk out of the ED with a smooth steady gait and no limp MDM - Chest Pain MDM Narrative Medical decision making narrative: 36 yo female with hx of HTN, pancreatitis, depression, anxiety reports 2 days of chest pain along with leg pain/cramps and feeling of her upper legs are tingling mostly in the posterior aspect and it did travel down - she has good pulses, compartments are soft, 5/5 strength, no clonus no hyper or hyporeflexia. The pattern is descending and patchy not symmetric in nature. It is very unusual and she has no weakness and it is mostly pain related. At this time she is very anxious. Seems atypical for ACS / PE . Stroke is unlikely given bilateral. GBS would be unusual as well given it seems pain driven and it is descending in nature - no back pain and no hx of IVDA. Labs, IVF, IV toradol/IV ativan. Will reassess. Lab Data Result diagrams: 12/24/21 01:30 12/24/21 01:30 Labs: Lab Results 12/24/21 12/24/21 12/24/21 Range/Units 01:30 01:30 01:30 WBC 8.7 (4.8-10.8) X10*3/uL RBC 4.64 (4.20-5.50) X10*6/uL Hgb 13.7 (12.0-16.0) g/dl Hct 41.6 (37.0-47.0) % MCV 89.7 (80.0-98.0) fL MCH 29.5 (27.0-33.0) pg MCHC 32.9 (31.0-35.0) g/dl RDW 13.9 (11.0-16.0) % Plt Count 338 (160-400) X10*3/uL MPV 9.8 (9.4-12.3) fL Immature Gran % (Auto) 0.2 (0.0-0.4) % Neut % (Auto) 75.1 H (45-73) % Lymph % (Auto) 18.3 L (20-40) % Rabun % (Auto) 5.5 (2-11) % Eos % (Auto) 0.8 (0-4) % Baso % (Auto) 0.1 (0-2) % Lymph # (Auto) 1.6 (1.2-4.9) X10*3/uL Rabun # (Auto) 0.5 (0.1-1.2) X10*3/uL Eos # (Auto) 0.1 (0.0-0.4) X10*3/uL Baso # (Auto) 0.0 (0.0-0.2) X10*3/uL Abs Immat Gran (auto) 0.02 (0.00-0.03) X10*3/uL Absolute Neuts (auto) 6.5 (2.0-8.3) x10*3/uL Absolute Nucleated RBC 0.000 (0.0-0.012) X10*3/uL Nucleated RBC % (auto) 0.0 (0.0-0.2) /100WBC D-Dimer High Sensitivty 295 NG/ML Sodium 138 (135-145) mmol/L Potassium 3.6 (3.3-5.1) mmol/L Chloride 103 (96-108) mmol/L Carbon Dioxide 19 L (22-29) mmol/L Anion Gap 20 (12-20) BUN 2 L (9-16) mg/dL Creatinine 0.92 (0.5-1.4) mg/dL Estim Creat Clear Calc 87.9 Estimated GFR > 60 Random Glucose 149 H (60-115) mg/dL Calcium 9.4 (8.4-10.2) mg/dL Magnesium 1.8 (1.6-2.6) mg/dL Total Bilirubin 1.1 H (0.0-1.0) mg/dL AST 192 H (5-31) U/L ALT 91 H (0-31) U/L Alkaline Phosphatase 172 H (39-117) U/L Total Creatine Kinase 109 (26-140) U/L Troponin I High Sens (<3.5-17.0) ng/L Total Protein 9.0 H D (6.5-8.0) g/dL Albumin 4.2 D (3.5-5.0) g/dL Ethyl Alcohol mg/dL COVID-19 (ELODIA) (Negative) COVID-19 Clin Com Influenza Type A (COLTEN) (Negative) Influenza Type B (COLTEN) (Negative) Influenza A & B Note 12/24/21 12/24/21 12/24/21 Range/Units 01:30 01:30 01:52 WBC (4.8-10.8) X10*3/uL RBC (4.20-5.50) X10*6/uL Hgb (12.0-16.0) g/dl Hct (37.0-47.0) % MCV (80.0-98.0) fL MCH (27.0-33.0) pg MCHC (31.0-35.0) g/dl RDW (11.0-16.0) % Plt Count (160-400) X10*3/uL MPV (9.4-12.3) fL Immature Gran % (Auto) (0.0-0.4) % Neut % (Auto) (45-73) % Lymph % (Auto) (20-40) % Rabun % (Auto) (2-11) % Eos % (Auto) (0-4) % Baso % (Auto) (0-2) % Lymph # (Auto) (1.2-4.9) X10*3/uL Rabun # (Auto) (0.1-1.2) X10*3/uL Eos # (Auto) (0.0-0.4) X10*3/uL Baso # (Auto) (0.0-0.2) X10*3/uL Abs Immat Gran (auto) (0.00-0.03) X10*3/uL Absolute Neuts (auto) (2.0-8.3) x10*3/uL Absolute Nucleated RBC (0.0-0.012) X10*3/uL Nucleated RBC % (auto) (0.0-0.2) /100WBC D-Dimer High Sensitivty NG/ML Sodium (135-145) mmol/L Potassium (3.3-5.1) mmol/L Chloride (96-108) mmol/L Carbon Dioxide (22-29) mmol/L Anion Gap (12-20) BUN (9-16) mg/dL Creatinine (0.5-1.4) mg/dL Estim Creat Clear Calc Estimated GFR Random Glucose (60-115) mg/dL Calcium (8.4-10.2) mg/dL Magnesium (1.6-2.6) mg/dL Total Bilirubin (0.0-1.0) mg/dL AST (5-31) U/L ALT (0-31) U/L Alkaline Phosphatase (39-117) U/L Total Creatine Kinase (26-140) U/L Troponin I High Sens < 3.5 (<3.5-17.0) ng/L Total Protein (6.5-8.0) g/dL Albumin (3.5-5.0) g/dL Ethyl Alcohol 45 mg/dL COVID-19 (ELODIA) (Negative) COVID-19 Clin Com Influenza Type A (COLTEN) Negative (Negative) Influenza Type B (COLTEN) Negative (Negative) Influenza A & B Note See Note 12/24/21 Range/Units 01:52 WBC (4.8-10.8) X10*3/uL RBC (4.20-5.50) X10*6/uL Hgb (12.0-16.0) g/dl Hct (37.0-47.0) % MCV (80.0-98.0) fL MCH (27.0-33.0) pg MCHC (31.0-35.0) g/dl RDW (11.0-16.0) % Plt Count (160-400) X10*3/uL MPV (9.4-12.3) fL Immature Gran % (Auto) (0.0-0.4) % Neut % (Auto) (45-73) % Lymph % (Auto) (20-40) % Rabun % (Auto) (2-11) % Eos % (Auto) (0-4) % Baso % (Auto) (0-2) % Lymph # (Auto) (1.2-4.9) X10*3/uL Rabun # (Auto) (0.1-1.2) X10*3/uL Eos # (Auto) (0.0-0.4) X10*3/uL Baso # (Auto) (0.0-0.2) X10*3/uL Abs Immat Gran (auto) (0.00-0.03) X10*3/uL Absolute Neuts (auto) (2.0-8.3) x10*3/uL Absolute Nucleated RBC (0.0-0.012) X10*3/uL Nucleated RBC % (auto) (0.0-0.2) /100WBC D-Dimer High Sensitivty NG/ML Sodium (135-145) mmol/L Potassium (3.3-5.1) mmol/L Chloride (96-108) mmol/L Carbon Dioxide (22-29) mmol/L Anion Gap (12-20) BUN (9-16) mg/dL Creatinine (0.5-1.4) mg/dL Estim Creat Clear Calc Estimated GFR Random Glucose (60-115) mg/dL Calcium (8.4-10.2) mg/dL Magnesium (1.6-2.6) mg/dL Total Bilirubin (0.0-1.0) mg/dL AST (5-31) U/L ALT (0-31) U/L Alkaline Phosphatase (39-117) U/L Total Creatine Kinase (26-140) U/L Troponin I High Sens (<3.5-17.0) ng/L Total Protein (6.5-8.0) g/dL Albumin (3.5-5.0) g/dL Ethyl Alcohol mg/dL COVID-19 (ELODIA) Negative (Negative) COVID-19 Clin Com See Note Influenza Type A (COLTEN) (Negative) Influenza Type B (COLTEN) (Negative) Influenza A & B Note ECG Data ECG #1: Attestation: I personally reviewed and interpreted this ECG as follows: ECG interpretation date: 12/24/21 ECG interpretation time: 01:37 Interpretation: Rate: 111 Rhythm: sinus tachycardia [place]: left Normal P waves. Normal MAR[place]UY. Normal QRS complex. ST T wave : non specific, inverted V1-V3, no MARTHA qTC: normal prior studies: no change from October 2021 The study has been interpreted contemporaneously by me. Discharge Plan Discharge Clinical Impression: Atypical chest pain, Elevated LFTs, Grief reaction, Myalgia, Paresthesia Patient Disposition: Home, Self-Care Instructions: Chest Pain (ED), Chest Pain (DC), Grief and Loss (ED), Paresthesia (ED) Additional Instructions: return to ED for any worsening symptoms or concerns labs, CT head and CT scan of chest were normal today you liver function tests were slightly elevated due to alcohol use please refrain from alcohol please follow up with your doctor and counselor this week Prescriptions: New cyclobenzaprine 10 mg tablet 10 mg PO TID PRN (Reason: muscle spasm) Qty: 14 0RF ondansetron 4 mg tablet,disintegrating 4 mg PO Q8H PRN (Reason: nausea and vomiting) Qty: 20 0RF No Action oxycodone 5 mg tablet 5 mg PO Q8H PRN (Reason: pain) Qty: 21 0RF ondansetron 4 mg tablet,disintegrating 4 mg PO Q6-8H PRN (Reason: nausea and vomiting) Qty: 10 0RF oxycodone 5 mg tablet 5 mg PO Q8H PRN (Reason: severe pain (scale score 7-10)) Qty: 6 0RF lisinopril 5 mg Tablet 10 mg PO DAILY Qty: 30 2RF Protocol: Hold for SBP< HOLD for SBP < : 90 oxycodone 5 mg tablet 5 mg PO Q6H PRN (Reason: pain) Qty: 20 0RF ibuprofen 600 mg tablet 600 mg PO Q8H PRN (Reason: pain) Qty: 20 0RF Referrals: Georges Lundberg III, MD [Primary Care Provider] - 2 days
--- NOTE | 2021-12-24 01:39 | PC.NURSE ---
Pt complains of chest pain mid sternal and left chest. Pt has a cough, watery eyes. Pt has some pain behind her knees for 3 days.
[2021-12-24 01:43] LABS: D Dimer High Sensitivity 295 NG/ML
[2021-12-24 01:48] VITALS: TEMP 36.9
[2021-12-24 01:54] LABS: Troponin-I High Sensitivity < 3.5 ng/L (<3.5-17.0)
[2021-12-24] MEDS: ondansetron HCL 4 MG/2 ML VIAL IVPUSH (01:55)
[2021-12-24 01:56] LABS: Alanine Aminotransferase 91 U/L (0-31); Albumin Level 4.2 g/dL (3.5-5.0); Alkaline Phosphatase 172 U/L (39-117); Anion Gap 20 (12-20); Aspartate Amino Transferase 192 U/L (5-31); Bilirubin Total 1.1 mg/dL (0.0-1.0); Blood Urea Nitrogen 2 mg/dL (9-16); Calcium 9.4 mg/dL (8.4-10.2); Carbon Dioxide 19 mmol/L (22-29); Chloride 103 mmol/L (96-108); Creatinine Clr Calc Pharmacy 87.9; Estimated Glomerular Filt Rate > 60; Glucose Random 149 mg/dL (60-115); Potassium 3.6 mmol/L (3.3-5.1); Sodium 138 mmol/L (135-145)
[2021-12-24] MEDS: 0.9 % Sodium Chloride 1,000 ML 999 ML IV (01:57)
[2021-12-24 01:59] LABS: Magnesium 1.8 mg/dL (1.6-2.6)
[2021-12-24] MEDS: LORazepam 2 MG/ML VIAL 1 MG IVPUSH (01:59)
[2021-12-24] MEDS: Ketorolac Tromethamine 30 MG/ML VIAL IVPUSH (02:00)
[2021-12-24 02:19] LABS: COVID-19 Test Negative (Negative); IDNOW Serial# 16C4AD1C; Influenza A Negative (Negative); Influenza B2 Negative (Negative)
[2021-12-24 02:48] LABS: Ethanol 45 mg/dL
[2021-12-24] MEDS: iohexoL 350 MG/ML 100 ML INFUS..BTL 85 ML IV (03:26)
[2021-12-24 03:47] VITALS: BP 149/89; PULSE 105; RESP 20; TEMP 36.5; O2SAT 100
[2021-12-24] MEDS: Morphine Sulfate 4 MG/ML CARTRIDGE IVPUSH (03:49)
[2021-12-24 04:00] VITALS: BP 120/78; PULSE 102; RESP 18; TEMP 36.7; O2SAT 97
--- NOTE | 2021-12-24 04:45 | PC.NURSE ---
Pt was ambulated in hallway with observation by Dr. Villela. Pt is ready for discharge.
== END 2021-12-24 04:53 | disposition home or self-care (01) ==
PROVIDERS: Emergency Provider Emergency Medicine; PCP Internal Medicine
DX: R07.89 Other chest pain (principal); M79.605 Pain in left leg; R79.89 Other specified abnormal findings of blood chemistry; F43.23 Adjustment disorder with mixed anxiety and depressed mood; Z20.822 Contact with and (suspected) exposure to COVID-19; M79.10 Myalgia, unspecified site; R20.2 Paresthesia of skin; I10 Essential (primary) hypertension
CPT/HCPCS: 36415; 70450; 71275; 80053; 82077; 82550; 83735; 84484; 85025; 85379; 87502; 87635; 93005; 96361; 96374; 96375; 99284; J1885; J2060; J2270; J2405; Q9967

== ENCOUNTER 2021-12-29 02:37 | Emergency (ER) | payer OTHER, SELFPAY ==
[2021-12-29 02:43] VITALS: BP 161/110; PULSE 115; RESP 20; TEMP 36.6; O2SAT 98; BMI 41.0
[2021-12-29 02:57] LABS: MANUAL DIFF FLAG NO
[2021-12-29 02:58] LABS: Basophils Percent Auto 0.2 % (0-2); Eosinophils Absolute Auto 0.1 X10*3/uL (0.0-0.4); Eosinophils Percent Auto 1.1 % (0-4); Hematocrit 36.3 % (37.0-47.0); Hemoglobin 11.9 g/dl (12.0-16.0); Imm Gran Abs Auto 0.01 X10*3/uL (0.00-0.03); Imm Gran Pct Auto 0.2 % (0.0-0.4); Lymphocytes Absolute Auto 1.6 X10*3/uL (1.2-4.9); Lymphocytes Percent Auto 24.7 % (20-40); Mean Corpuscular HGB Conc 32.8 g/dl (31.0-35.0); Mean Corpuscular Hemoglobin 29.8 pg (27.0-33.0); Mean Corpuscular Volume 90.8 fL (80.0-98.0); Mean Platelet Volume 9.9 fL (9.4-12.3); Monocytes Absolute Auto 0.4 X10*3/uL (0.1-1.2); Neutrophils Absolute Auto 4.2 x10*3/uL (2.0-8.3); Neutrophils Percent Auto 66.8 % (45-73); Platelet Count 300 X10*3/uL (160-400); White Blood Count 6.3 X10*3/uL (4.8-10.8)
[2021-12-29 03:09] LABS: Appearance Urine CLEAR; Color Urine DK YELLOW; Glucose Urine UA NEG (NEG); Leukocyte Esterase Urine 2+ (NEG); Nitrite Urine NEG (NEG); PH 6.5 (5.0-8.0); UACC Culture Trigger YES; Urine Blood TRACE (NEG); Urine Ketones NEG (NEG); Urine Protein NEG (NEG-TRACE)
[2021-12-29 03:11] LABS: UPreg QC Valid YES; Urine Pregnancy NEGATIVE (NEGATIVE)
[2021-12-29 03:15] LABS: Bacteria Urine 2+ /LPF; Mucus Urine 2+ /LPF; RBC Urine 0-2 /HPF (0); Squamous Epithelial Cell Urine 1+ /LPF
[2021-12-29 03:28] LABS: Alanine Aminotransferase 62 U/L (0-31); Albumin Level 3.4 g/dL (3.5-5.0); Alkaline Phosphatase 151 U/L (39-117); Anion Gap 15 (12-20); Aspartate Amino Transferase 128 U/L (5-31); Bilirubin Total 0.5 mg/dL (0.0-1.0); Blood Urea Nitrogen 4 mg/dL (9-16); Calcium 8.6 mg/dL (8.4-10.2); Carbon Dioxide 21 mmol/L (22-29); Chloride 106 mmol/L (96-108); Creatinine Clr Calc Pharmacy 108.6; Estimated Glomerular Filt Rate > 60; Glucose Random 110 mg/dL (60-115); Potassium 3.8 mmol/L (3.3-5.1); Sodium 138 mmol/L (135-145); Total Protein 7.1 g/dL (6.5-8.0)
--- NOTE | 2021-12-29 04:06 | ED.BACK ---
HPI - Back Pain/Injury General Chief Complaint: Back Pain/Injury Stated Complaint: Left leg numbness/back pain/Sob Time Seen by Provider: 12/29/21 04:04 History of Present Illness HPI Narrative: Patient is a 36-year-old female presents today with having back pain radiating down to the legs. Patient complaining of numbness to the left leg. Able ambulate with pain. There is no bowel urinary incontinence. Positive history of sciatic pain in the past. Patient denies any trauma. No previous history of IV drug use. No fever no chills. No leg swelling. Patient from home. Related Data Previous Rx's Medication Instructions Recorded lisinopril 5 mg tablet 10 mg PO DAILY #30 tabs 07/01/21 oxycodone 5 mg tablet 5 mg PO Q6H PRN pain #20 tabs 07/01/21 ibuprofen 600 mg tablet 600 mg PO Q8H PRN pain #20 tabs 08/21/21 oxycodone 5 mg tablet 5 mg PO Q8H PRN pain #21 tabs 08/29/21 ondansetron 4 mg disintegrating 4 mg PO Q6-8H PRN nausea and 12/05/21 tablet vomiting #10 tabs oxycodone 5 mg tablet 5 mg PO Q8H PRN severe pain (scale 12/05/21 score 7-10) #6 tabs cyclobenzaprine 10 mg tablet 10 mg PO TID PRN muscle spasm #14 12/24/21 tabs ondansetron 4 mg disintegrating 4 mg PO Q8H PRN nausea and 12/24/21 tablet vomiting #20 tabs cyclobenzaprine 10 mg tablet 10 mg PO TID PRN pain #14 tabs 12/29/21 methylprednisolone 4 mg tablets in 4 mg PO DAILY back pain #21 ea 12/29/21 a dose pack (Medrol (Abraham)) oxycodone 5 mg tablet 5 mg PO Q8H PRN pain #7 tabs 12/29/21 Allergies Allergy/AdvReac Type Severity Reaction Status Date / Time osborne [CHERRIES] Allergy Intermediate UNKNOWN Verified 08/28/21 15:20 red dye [RED DYE] AdvReac Mild DIARRHEA Verified 08/28/21 15:20 Review of Systems Review of Systems: Positive back pain No bowel urinary incontinence Positive numbness to the leg. Ambulates without difficulty Yes all other systems are reviewed and are negative [facility] Past Medical History Attestation statement: The following information was validated with the patient. Medical History ADHD Bipolar 1 disorder Depression Hypertension Pancreatitis Surgical History Hx of cholecystectomy Status post cholecystectomy Social History Social History Household Members: Significant Other Housing: Apartment Do you presently have visiting nurse or other home services: No Patient Tobacco Use Status: Never used Tobacco Second Hand Smoke Exposure: No Advance Directives: No service: No Current occupation: rt handed Physical Exam Vital Signs: Vital Signs: Last Vital Signs Temp 97.9 F 12/29/21 02:43 Pulse 93 12/29/21 04:24 Resp 22 H 12/29/21 04:24 BP 159/95 H 12/29/21 04:24 Pulse Ox 99 12/29/21 04:24 O2 Del Method 12/29/21 04:24 BMI result Body Mass Index 41.0 Appearance: Alert. Oriented X3. No acute distress. Eyes: Pupils equal, round and reactive to light. ENT: Pharynx normal. Neck: Normal inspection. Neck supple. No lymph nodes noted. No crepitus CVS: Normal heart rate and rhythm. Pulses normal. Normal S1 and S2 Respiratory: No respiratory distress. Breath sounds normal. No Wheezing. No rales Abdomen: Soft and nontender. No rigidity. No distention. good BS x4 Skin: Skin warm and dry. Normal skin color. Normal skin turgor. Extremities: No lower extremity edema. Neurovascular intact to all extremities. No Lacerations. No Rash. Sensation bilateral lower extremity intact. Able to lift up the leg to 90 degrees. Patient able to ambulate with pain. Reflexes patellar 2+ bilaterally Neuro: Oriented X 3. No motor deficit. No sensory deficit. Moving all extermities. No slurred speech. MDM - Back Pain/Injury MDM Narrative Medical decision making narrative: Positive back pain positive numbness to the left leg. There is no bowel urinary incontinence. Patient is given pain medication with moderate relief. Explained the need for an MRI as patient had numbness over the entire lower extremity. Her reflexes were equal at patella. There is no bowel urinary incontinence. Patient understood the risk of cord compression causing leg numbness. Patient is leaving AMA. Differential Diagnosis Differential diagnosis: Likely lumbar radiculopathy Medical Records Attestation: I reviewed the patient's medical records. Lab Data Attestation: I reviewed the patient's lab results. Result diagrams: 12/29/21 02:53 12/29/21 02:53 Labs: Lab Results 12/29/21 12/29/21 12/29/21 Range/Units 02:53 02:53 03:03 WBC 6.3 (4.8-10.8) X10*3/uL RBC 4.00 L (4.20-5.50) X10*6/uL Hgb 11.9 L (12.0-16.0) g/dl Hct 36.3 L (37.0-47.0) % MCV 90.8 (80.0-98.0) fL MCH 29.8 (27.0-33.0) pg MCHC 32.8 (31.0-35.0) g/dl RDW 14.0 (11.0-16.0) % Plt Count 300 (160-400) X10*3/uL MPV 9.9 (9.4-12.3) fL Immature Gran % (Auto) 0.2 (0.0-0.4) % Neut % (Auto) 66.8 (45-73) % Lymph % (Auto) 24.7 (20-40) % [place] % (Auto) 7.0 (2-11) % Eos % (Auto) 1.1 (0-4) % Baso % (Auto) 0.2 (0-2) % Lymph # (Auto) 1.6 (1.2-4.9) X10*3/uL [place] # (Auto) 0.4 (0.1-1.2) X10*3/uL Eos # (Auto) 0.1 (0.0-0.4) X10*3/uL Baso # (Auto) 0.0 (0.0-0.2) X10*3/uL Abs Immat Gran (auto) 0.01 (0.00-0.03) X10*3/uL Absolute Neuts (auto) 4.2 (2.0-8.3) x10*3/uL Absolute Nucleated RBC 0.000 (0.0-0.012) X10*3/uL Nucleated RBC % (auto) 0.0 (0.0-0.2) /100WBC Sodium 138 (135-145) mmol/L Potassium 3.8 (3.3-5.1) mmol/L Chloride 106 (96-108) mmol/L Carbon Dioxide 21 L (22-29) mmol/L Anion Gap 15 (12-20) BUN 4 L D (9-16) mg/dL Creatinine 0.83 (0.5-1.4) mg/dL Estim Creat Clear Calc 108.6 Estimated GFR > 60 Random Glucose 110 (60-115) mg/dL Calcium 8.6 D (8.4-10.2) mg/dL Total Bilirubin 0.5 (0.0-1.0) mg/dL AST 128 H (5-31) U/L ALT 62 H (0-31) U/L Alkaline Phosphatase 151 H (39-117) U/L Total Protein 7.1 D (6.5-8.0) g/dL Albumin 3.4 L (3.5-5.0) g/dL Urine Color DK YELLOW Urine Appearance CLEAR Urine pH 6.5 (5.0-8.0) Ur Specific [place] 1.020 (1.005-1.025) Urine Protein NEG (NEG-TRACE) MG/DL Urine Glucose (UA) NEG (NEG) MG/DL Urine Ketones NEG (NEG) MG/DL Urine Blood TRACE (NEG) Urine Nitrite NEG (NEG) Ur Leukocyte Esterase 2+ H (NEG) Urine RBC 0-2 (0) /HPF Urine WBC 10-14 H (0-4) /HPF Ur Squamous Epith Cells 1+ /LPF Urine Bacteria 2+ /LPF Urine Mucus 2+ /LPF Urine Test (NEGATIVE) 12/29/21 Range/Units 03:03 WBC (4.8-10.8) X10*3/uL RBC (4.20-5.50) X10*6/uL Hgb (12.0-16.0) g/dl Hct (37.0-47.0) % MCV (80.0-98.0) fL MCH (27.0-33.0) pg MCHC (31.0-35.0) g/dl RDW (11.0-16.0) % Plt Count (160-400) X10*3/uL MPV (9.4-12.3) fL Immature Gran % (Auto) (0.0-0.4) % Neut % (Auto) (45-73) % Lymph % (Auto) (20-40) % [place] % (Auto) (2-11) % Eos % (Auto) (0-4) % Baso % (Auto) (0-2) % Lymph # (Auto) (1.2-4.9) X10*3/uL [place] # (Auto) (0.1-1.2) X10*3/uL Eos # (Auto) (0.0-0.4) X10*3/uL Baso # (Auto) (0.0-0.2) X10*3/uL Abs Immat Gran (auto) (0.00-0.03) X10*3/uL Absolute Neuts (auto) (2.0-8.3) x10*3/uL Absolute Nucleated RBC (0.0-0.012) X10*3/uL Nucleated RBC % (auto) (0.0-0.2) /100WBC Sodium (135-145) mmol/L Potassium (3.3-5.1) mmol/L Chloride (96-108) mmol/L Carbon Dioxide (22-29) mmol/L Anion Gap (12-20) BUN (9-16) mg/dL Creatinine (0.5-1.4) mg/dL Estim Creat Clear Calc Estimated GFR Random Glucose (60-115) mg/dL Calcium (8.4-10.2) mg/dL Total Bilirubin (0.0-1.0) mg/dL AST (5-31) U/L ALT (0-31) U/L Alkaline Phosphatase (39-117) U/L Total Protein (6.5-8.0) g/dL Albumin (3.5-5.0) g/dL Urine Color Urine Appearance Urine pH (5.0-8.0) Ur Specific [place] (1.005-1.025) Urine Protein (NEG-TRACE) MG/DL Urine Glucose (UA) (NEG) MG/DL Urine Ketones (NEG) MG/DL Urine Blood (NEG) Urine Nitrite (NEG) Ur Leukocyte Esterase (NEG) Urine RBC (0) /HPF Urine WBC (0-4) /HPF Ur Squamous Epith Cells /LPF Urine Bacteria /LPF Urine Mucus /LPF Urine Test NEGATIVE (NEGATIVE) Discharge Plan Discharge Clinical Impression: Lumbar radiculopathy, Sciatica Patient Disposition: Left Against Medical Advice Instructions: Sciatica (ED) Additional Instructions: You are leaving against medical advice. If he change of mind about the MRI please come back/. Prescriptions: New methylprednisolone [Medrol (Abraham)] 4 mg tablets,dose pack 4 mg PO DAILY Qty: 21 0RF cyclobenzaprine 10 mg tablet 10 mg PO TID PRN (Reason: pain) Qty: 14 0RF oxycodone 5 mg tablet 5 mg PO Q8H PRN (Reason: pain) Qty: 7 0RF Rx Instructions: Partial Fill upon patient request. No Action oxycodone 5 mg tablet 5 mg PO Q8H PRN (Reason: pain) Qty: 21 0RF ondansetron 4 mg tablet,disintegrating 4 mg PO Q6-8H PRN (Reason: nausea and vomiting) Qty: 10 0RF oxycodone 5 mg tablet 5 mg PO Q8H PRN (Reason: severe pain (scale score 7-10)) Qty: 6 0RF cyclobenzaprine 10 mg tablet 10 mg PO TID PRN (Reason: muscle spasm) Qty: 14 0RF ondansetron 4 mg tablet,disintegrating 4 mg PO Q8H PRN (Reason: nausea and vomiting) Qty: 20 0RF lisinopril 5 mg Tablet 10 mg PO DAILY Qty: 30 2RF Protocol: Hold for SBP< HOLD for SBP < : 90 oxycodone 5 mg tablet 5 mg PO Q6H PRN (Reason: pain) Qty: 20 0RF ibuprofen 600 mg tablet 600 mg PO Q8H PRN (Reason: pain) Qty: 20 0RF Referrals: Physician,None [Primary Care Provider] - (If you change of mind about getting the MRI please come back to the emergency department.)
[2021-12-29 04:24] VITALS: BP 159/95; PULSE 93; RESP 22; O2SAT 99
== END 2021-12-29 05:54 | disposition left against medical advice (07) ==
PROVIDERS: Emergency Provider Emergency Medicine Emergency Medical Services
DX: M54.16 Radiculopathy, lumbar region (principal); M54.32 Sciatica, left side; I10 Essential (primary) hypertension
CPT/HCPCS: 36415; 80053; 81001; 81025; 85025; 87086; 99283

== ENCOUNTER 2022-10-19 17:19 | Inpatient (IN) | payer OTHER, SELFPAY ==
--- NOTE | ~2022-10-19 | CT_ITS ---
EXAMINATION: CT ABDOMEN AND PELVIS WITH CONTRAST CLINICAL INFORMATION: Left upper quadrant pain. COMPARISON: None available. TECHNIQUE: Multidetector volumetric images were obtained from the superior aspect of the liver through the pubic symphysis following administration 85 mL of Omnipaque 350 intravenous contrast. Sagittal and coronal reformatted images were obtained on the technologist's workstation. Oral contrast: No This CT examination was performed using dose optimization techniques as appropriate, variously including the following: *Automated exposure control *Adjustment of mA and/or kV according to patient size (this includes techniques or standardized protocols for targeted exams where dose is matched to indication/reason for exam; i.e. extremities or head) *Use of iterative reconstruction technique DLP: 717 mGy-cm FINDINGS: LUNG BASES: There is mild bibasilar dependent hypoaeration. LIVER, GALLBLADDER, AND BILIARY TREE: The liver is normal in size, shape and generally diminished in attenuation. No focal hepatic lesion or biliary ductal dilatation is present. The gallbladder is surgically absent. PANCREAS: The pancreas is normal in size and attenuation. No focal pancreatic mass or ductal dilatation is seen. The pancreas enhances uniformly. There is mild peripancreatic fat stranding, and a small amount of free fluid is seen adjacent to the pancreatic tail, layering along the anterior left pararenal fascia. SPLEEN: Unremarkable. ADRENAL GLANDS: Unremarkable. KIDNEYS AND URETERS: The kidneys are normal in size, shape, and attenuation. No hydronephrosis, hydroureter, or calculi seen. No perinephric stranding. BLADDER: Unremarkable. GASTROINTESTINAL TRACT: The small and large bowel are unremarkable. The appendix is unremarkable. ABDOMINAL WALL: No significant hernia is appreciated. LYMPH NODES: Normal. VASCULAR: Unremarkable. PELVIC VISCERA: The uterus and adnexa are unremarkable. There is a small amount of free fluid in the dependent pelvis, right greater than left. OSSEOUS STRUCTURES: There is multi-level thoracolumbar degenerative disc disease, spondylosis and Schmorl's node formation. No acute or aggressive osseous abnormality is seen. CT/CT abdomen pelvis w IV con IMPRESSION: 1. There is no peripancreatic fat stranding, suggestive of acute pancreatitis. Recommend clinical correlation, including correlation with the patient's serum amylase level. No pancreatic necrosis is seen. Small acute fluid collections are noted adjacent to the left anterior pararenal fascia and within the dependent pelvis. 2. There is hepatic steatosis. Fleischner guidelines were followed.
--- NOTE | ~2022-10-19 | XR_ITS ---
EXAMINATION: XR CHEST CLINICAL INFORMATION: Shortness of breath. COMPARISON: Chest CTA dated 12/24/2021, chest radiographs dated 12/05/2021. TECHNIQUE: Frontal view of the chest was obtained. FINDINGS: No significant abnormality is noted involving the heart, lungs, mediastinum, bony thorax or soft tissues. XR/XR chest 1V IMPRESSION: No acute cardiopulmonary process.
[2022-10-19 17:27] VITALS: BP 150/116; PULSE 100; RESP 18; TEMP 37.1; O2SAT 99; BMI 35.0
--- NOTE | 2022-10-19 17:30 | ED_ITS ---
HPI - Abdominal Pain General Chief Complaint: Abdominal Pain Stated Complaint: abd pain, back pain, unable to eat Time Seen by Provider: 10/19/22 19:29 Related Data Home Medications ?Medication ?Instructions ?Recorded ?Confirmed melatonin 10 mg tablet 10 mg PO BEDTIME 10/20/22 10/20/22 multivitamin 1 tab PO DAILY 10/20/22 10/20/22 Previous Rx's ?Medication ?Instructions ?Recorded lisinopril 5 mg tablet 10 mg PO DAILY #30 tabs 07/01/21 omeprazole 20 mg capsule,delayed 20 mg PO DAILY #30 caps 10/22/22 release Allergies Allergy/AdvReac Type Severity Reaction Status Date / Time osborne [CHERRIES] Allergy Intermediate UNKNOWN Verified 08/28/21 15:20 red dye [RED DYE] AdvReac Mild DIARRHEA Verified 08/28/21 15:20 PMFSH Past Medical History Medical History ADHD Bipolar 1 disorder Depression Hypertension Pancreatitis Surgical History Hx of cholecystectomy Status post cholecystectomy Social History Social History Household Members: Family Housing: Apartment Do you presently have visiting nurse or other home services: No Alcohol intake: former Comment: pt sleeping Patient Tobacco Use Status: Never used Tobacco Second Hand Smoke Exposure: No service: No Current occupation: rt handed Physical Exam ED Vital Signs: Vital Signs - 24 hr 10/19/22 17:27 Temperature 98.8 F Pulse Rate 100 Respiratory Rate 18 Blood Pressure 150/116 H Pulse Oximetry 99 Oxygen Delivery Method Room Air BMI result Body Mass Index 35.0 Course Course Course Narrative: This is an RME: Additional HPI, ROS, PE not included below will be deferred to primary provider. 37-year-old female presents with severe stabbing left upper quadrant pain times a few days worsening. 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 Reports associated nausea and vomiting tells me she is unable to keep anything down. Reports 10/10 pain. Denies fevers and chills. Physical exam of left upper quadrant tenderness to palpation. Vitals with hypertension, likely secondary to pain. Plan labs, urine, imaging, fluids, Zofran, Toradol. Medical Decision Making Lab Data 10/21/22 05:02 10/21/22 05:02 Labs: Lab Results 10/19/22 10/19/22 Range/Units 17:53 17:55 WBC 11.2 H (4.8-10.8) X10*3/uL RBC 4.64 (4.20-5.50) X10*6/uL Hgb 14.3 D (12.0-16.0) g/dl Hct 42.8 (37.0-47.0) % MCV 92.2 (80.0-98.0) fL MCH 30.8 (27.0-33.0) pg MCHC 33.4 (31.0-35.0) g/dl RDW 14.1 (11.0-16.0) % Plt Count 331 (160-400) X10*3/uL MPV 10.0 (9.4-12.3) fL Immature Gran % (Auto) 0.3 (0.0-0.4) % Neut % (Auto) 85.8 H (45-73) % Lymph % (Auto) 8.4 L (20-40) % [place] % (Auto) 5.0 (2-11) % Eos % (Auto) 0.4 (0-4) % Baso % (Auto) 0.1 (0-2) % Lymph # (Auto) 0.9 L (1.2-4.9) X10*3/uL [place] # (Auto) 0.6 (0.1-1.2) X10*3/uL Eos # (Auto) 0.1 (0.0-0.4) X10*3/uL Baso # (Auto) 0.0 (0.0-0.2) X10*3/uL Abs Immat Gran (auto) 0.03 (0.00-0.03) X10*3/uL Absolute Neuts (auto) 9.6 H (2.0-8.3) x10*3/uL Absolute Nucleated RBC 0.000 (0.0-0.012) X10*3/uL Nucleated RBC % (auto) 0.0 (0.0-0.2) /100WBC Sodium 135 (135-145) mmol/L Potassium 4.1 (3.3-5.1) mmol/L Chloride 101 (96-108) mmol/L Carbon Dioxide 25 (22-29) mmol/L Anion Gap 13 (12-20) BUN 5 L (9-16) mg/dL Creatinine 0.93 (0.5-1.4) mg/dL Estim Creat Clear Calc 88.1 Estimated GFR > 60 Random Glucose 159 H (60-115) mg/dL Calcium 9.2 D (8.4-10.2) mg/dL Magnesium 1.7 (1.6-2.6) mg/dL Total Bilirubin 2.2 H (0.0-1.0) mg/dL AST 70 H (5-31) U/L ALT 58 H (0-31) U/L Alkaline Phosphatase 131 H (39-117) U/L Total Protein 7.5 (6.5-8.0) g/dL Albumin 3.8 (3.5-5.0) g/dL Triglycerides 110 mg/dL Lipase 2066 H (8-78) U/L Beta HCG, Quant < 2 mIU/mL Urine Color Dark Yellow Urine Appearance Cloudy Urine pH 5.5 (5.0-9.0) Ur Specific [place] 1.025 (1.005-1.025) Urine Protein 30 (1+) H (Neg-Trace) mg/dL Urine Glucose (UA) Negative (Negative) mg/dL Urine Ketones 15 (Negative) mg/dL Urine Blood Negative (Negative) Urine Nitrite Negative (Negative) Ur Leukocyte Esterase Small (1+) H (Negative) Urine RBC 0-2 (0-2) /HPF Urine WBC 0-5 (0-5) /HPF Ur Squamous Epith Cells 6-10 (0-2) /HPF Urine Bacteria Trace (None Seen) Hyaline Casts 3-5 (0-2) /LPF Ethyl Alcohol < 10 mg/dL COVID-19 (ELODIA) Negative (Negative) COVID-19 Clin Com See Note Medications Administered Discontinued Medications Generic Name Dose Route Start Last Admin Trade Name Freq PRN Reason Stop Dose Admin Acetaminophen 650 mg 10/19/22 22:29 10/21/22 15:17 Acetaminophen 325 Mg Tablet PO 650 mg Q6H PRN Administration Pain, Mild (Pain Scale 1-3) Al Hydroxide/Mg Hydroxide 15 ml 10/20/22 20:38 10/21/22 00:22 Magnesium Hydrox/Alum Hydrox 30 Ml Oral.Susp PO 15 ml Q4H PRN Administration heartburn Enoxaparin Sodium 40 mg 10/20/22 08:00 10/22/22 07:26 Enoxaparin Sodium 40 Mg/0.4 Ml Syringe SUBCUT 40 mg Q24H XUAN Administration Famotidine 20 mg 10/21/22 10:00 10/22/22 07:25 Famotidine/Pf 20 Mg/2 Ml Vial IVPUSH 20 mg BID XUAN Administration Folic Acid 1 mg 10/20/22 09:00 10/22/22 07:25 Folic Acid 1 Mg Tablet PO 1 mg DAILY XUAN Administration Hydromorphone HCl 0.5 mg 10/19/22 21:33 10/19/22 21:37 Hydromorphone Hcl 0.5 Mg/0.5 Ml Syringe IVPUSH 10/19/22 21:34 0.5 mg ONCE ONE Administration Protocol Sodium Chloride 1,000 mls @ 999 mls/hr 10/19/22 17:30 10/19/22 22:18 Ns IV 10/19/22 18:30 Infused .Q1H1M XUAN Infusion Lactated Ringer's 1,000 mls @ 200 mls/hr 10/19/22 22:30 10/21/22 23:45 Lr IVCONT Infused .Q5H XUAN Infusion Ibuprofen 400 mg 10/22/22 10:47 10/22/22 11:37 Ibuprofen 400 Mg Tablet PO 400 mg Q6H PRN Administration Pain, Moderate (Pain Scale 4-6 Iohexol 100 ml 10/19/22 20:26 10/19/22 20:32 Iohexol 350 Mg/Ml 100 Ml Infus..Btl IV 10/19/22 20:27 85 ml ONCE ONE Administration Ketorolac Tromethamine 30 mg 10/19/22 17:28 10/19/22 20:40 Ketorolac Tromethamine 15 Mg/Ml Vial IVPUSH 10/19/22 17:29 30 mg ONCE ONE Administration Lisinopril 10 mg 10/21/22 09:00 10/22/22 07:24 Lisinopril 10 Mg Tablet PO 10 mg DAILY XUAN Administration Protocol Lorazepam 1 mg 10/21/22 13:17 10/21/22 13:29 Lorazepam 2 Mg/Ml Vial IVPUSH 10/21/22 13:18 1 mg ONCE ONE Administration Morphine Sulfate 4 mg 10/19/22 22:29 10/21/22 19:27 Morphine Sulfate 4 Mg/Ml Cartridge IVPUSH 4 mg Q4H PRN Administration Pain, Severe (Pain Scale 7-10) Protocol Omeprazole 20 mg 10/22/22 13:23 10/22/22 13:31 Omeprazole 20 Mg Capsule.Dr PO 10/22/22 13:24 20 mg ONCE ONE Administration Ondansetron HCl 4 mg 10/19/22 17:28 10/19/22 20:40 Ondansetron Hcl 4 Mg/2 Ml Vial IVPUSH 10/19/22 17:29 4 mg ONCE ONE Administration Ondansetron HCl 4 mg 10/19/22 22:29 10/21/22 11:09 Ondansetron Hcl 4 Mg/2 Ml Vial IVPUSH 4 mg Q8H PRN Administration Nausea and Vomiting Oxycodone HCl 5 mg 10/21/22 09:55 10/22/22 07:24 Oxycodone Hcl Immed Release 5 Mg Tablet PO 5 mg Q4H PRN Administration Pain, Mild (Pain Scale 1-3) Sodium Chloride 3 ml 10/20/22 00:00 10/22/22 07:25 0.9 % Sodium Chloride Flush 3 Ml Syringe IVFLUSH 3 ml QSHIFT XUAN Administration Thiamine HCl 50 mg 10/20/22 09:00 10/22/22 07:25 Thiamine Hcl 100 Mg Tablet PO 50 mg DAILY XUAN Administration Zolpidem Tartrate 5 mg 10/21/22 22:55 10/21/22 23:03 Zolpidem Tartrate 5 Mg Tablet PO 10/21/22 22:56 5 mg ONCE ONE Administration Discharge Plan Discharge Clinical Impression: Acute pancreatitis Patient Disposition: Admitted As Inpatient Interventions: Admission Worksheet (ED) Last Done: 10/19/22 23:44 Discharge Date/Time: 10/19/22 23:44
[2022-10-19 17:59] LABS: MANUAL DIFF FLAG NO
[2022-10-19 18:00] LABS: Basophils Percent Auto 0.1 % (0-2); Eosinophils Absolute Auto 0.1 X10*3/uL (0.0-0.4); Eosinophils Percent Auto 0.4 % (0-4); Hematocrit 42.8 % (37.0-47.0); Hemoglobin 14.3 g/dl (12.0-16.0); Imm Gran Abs Auto 0.03 X10*3/uL (0.00-0.03); Imm Gran Pct Auto 0.3 % (0.0-0.4); Lymphocytes Absolute Auto 0.9 X10*3/uL (1.2-4.9); Lymphocytes Percent Auto 8.4 % (20-40); Mean Corpuscular HGB Conc 33.4 g/dl (31.0-35.0); Mean Corpuscular Hemoglobin 30.8 pg (27.0-33.0); Mean Corpuscular Volume 92.2 fL (80.0-98.0); Monocytes Absolute Auto 0.6 X10*3/uL (0.1-1.2); Neutrophils Absolute Auto 9.6 x10*3/uL (2.0-8.3); Neutrophils Percent Auto 85.8 % (45-73); Platelet Count 331 X10*3/uL (160-400); Red Blood Count 4.64 X10*6/uL (4.20-5.50); Red Cell Distribution Width 14.1 % (11.0-16.0); White Blood Count 11.2 X10*3/uL (4.8-10.8)
[2022-10-19 18:01] LABS: Appearance Urine Cloudy; Color Urine Dark Yellow; Glucose Urine UA Negative (Negative); Leukocyte Esterase Urine Small (1+) (Negative); Nitrite Urine Negative (Negative); PH 5.5 (5.0-9.0); Specific Gravity - Urine 1.025 (1.005-1.025); UMIC TRIGGER UACC YES; Urine Blood Negative (Negative); Urine Ketones 15 mg/dL (Negative); Urine Protein 30 (1+) mg/dL (Neg-Trace)
[2022-10-19 18:10] LABS: Triglycerides 110 mg/dL
[2022-10-19 18:13] LABS: Bacteria Urine Trace (None Seen); RBC Urine 0-2 /HPF (0-2); UACC Culture Trigger YES; WBC Urine 0-5 /HPF (0-5)
[2022-10-19 18:24] LABS: COVID-19 Test Negative (Negative); IDNOW Serial# 08D9AD1C
[2022-10-19 18:25] LABS: Alanine Aminotransferase 58 U/L (0-31); Albumin Level 3.8 g/dL (3.5-5.0); Alkaline Phosphatase 131 U/L (39-117); Anion Gap 13 (12-20); Aspartate Amino Transferase 70 U/L (5-31); Bilirubin Total 2.2 mg/dL (0.0-1.0); Blood Urea Nitrogen 5 mg/dL (9-16); Calcium 9.2 mg/dL (8.4-10.2); Carbon Dioxide 25 mmol/L (22-29); Chloride 101 mmol/L (96-108); Creatinine Clr Calc Pharmacy 88.1; Estimated Glomerular Filt Rate > 60; Glucose Random 159 mg/dL (60-115); HCG Quantitative < 2 mIU/mL; Magnesium 1.7 mg/dL (1.6-2.6); Potassium 4.1 mmol/L (3.3-5.1); Sodium 135 mmol/L (135-145); Total Protein 7.5 g/dL (6.5-8.0)
--- NOTE | 2022-10-19 19:53 | ED.ABDPAIN ---
HPI - Abdominal Pain General Chief Complaint: Abdominal Pain Stated Complaint: abd pain, back pain, unable to eat Time Seen by Provider: 10/19/22 19:29 History of Present Illness HPI narrative: Patient is a 37-year-old female present today with having abdominal pain. The abdominal pain is mostly over the left side. She is status post cholecystectomy over 5-10 years ago. Positive nausea. No pain on urination. No vaginal discharge. Does not think she is . Menstruation has been normal in timing and duration. Denies any coughing congestion upper respiratory symptoms. Denies any fever chills. No travel history. Patient from home. Related Data Previous Rx's Medication Instructions Recorded lisinopril 5 mg tablet 10 mg PO DAILY #30 tabs 07/01/21 oxycodone 5 mg tablet 5 mg PO Q6H PRN pain #20 tabs 07/01/21 ibuprofen 600 mg tablet 600 mg PO Q8H PRN pain #20 tabs 08/21/21 oxycodone 5 mg tablet 5 mg PO Q8H PRN pain #21 tabs 08/29/21 ondansetron 4 mg disintegrating 4 mg PO Q6-8H PRN nausea and 12/05/21 tablet vomiting #10 tabs oxycodone 5 mg tablet 5 mg PO Q8H PRN severe pain (scale 12/05/21 score 7-10) #6 tabs cyclobenzaprine 10 mg tablet 10 mg PO TID PRN muscle spasm #14 12/24/21 tabs ondansetron 4 mg disintegrating 4 mg PO Q8H PRN nausea and 12/24/21 tablet vomiting #20 tabs cyclobenzaprine 10 mg tablet 10 mg PO TID PRN pain #14 tabs 12/29/21 methylprednisolone 4 mg tablets in 4 mg PO DAILY back pain #21 ea 12/29/21 a dose pack (Medrol (Abraham)) oxycodone 5 mg tablet 5 mg PO Q8H PRN pain #7 tabs 12/29/21 Allergies Allergy/AdvReac Type Severity Reaction Status Date / Time osborne [CHERRIES] Allergy Intermediate UNKNOWN Verified 08/28/21 15:20 red dye [RED DYE] AdvReac Mild DIARRHEA Verified 08/28/21 15:20 Review of Systems Review of Systems Positive abdominal pain. Yes all other systems are reviewed and are negative [facility] Past Medical History Attestation statement: The following information was validated with the patient. Medical History ADHD Bipolar 1 disorder Depression Hypertension Pancreatitis Surgical History Hx of cholecystectomy Status post cholecystectomy Social History Social History Household Members: Significant Other Housing: Apartment Do you presently have visiting nurse or other home services: No Alcohol intake: former Patient Tobacco Use Status: Never used Tobacco Smoked in Last 30 Days: No Second Hand Smoke Exposure: No Use of substances other than those prescribed or required for medical reasons: No Advance Directives: No Advance Directives Information Provided: No service: No Current occupation: rt handed Physical Exam ED Vital Signs: Vital Signs - 24 hr 10/19/22 17:27 10/19/22 20:32 10/19/22 21:37 Temperature 98.8 F 98.7 F Pulse Rate 100 88 Respiratory Rate 18 20 16 Blood Pressure 150/116 H 152/103 H Pulse Oximetry 99 98 Oxygen Delivery Method Room Air Room Air BMI result Body Mass Index 35.0 Appearance: Alert. Oriented X3. No acute distress. Eyes: Pupils equal, round and reactive to light. ENT: Pharynx normal. Neck: Normal inspection. Neck supple. No lymph nodes noted. No crepitus CVS: Normal heart rate and rhythm. Pulses normal. Normal S1 and S2 Respiratory: No respiratory distress. Breath sounds normal. No Wheezing. No rales Abdomen: Soft and nontender. No rigidity. No distention. good BS x4 Skin: Skin warm and dry. Normal skin color. Normal skin turgor. Extremities: No lower extremity edema. Neurovascular intact to all extremities. No Lacerations. No Rash Neuro: Oriented X 3. No motor deficit. No sensory deficit. Moving all extermities. No slurred speech Medical Decision Making Medical Decision Making MDM Narrative: Patient is a 37-year-old female presents today with having abdominal pain. On further check with patient she admits to drinking alcohol prior to the abdominal pain. She is status post cholecystectomy over 5-10 years ago. Patient's lipase came back at over 2000 suggestive of pancreatitis most likely secondary to ETOH. CT scan showed the same. There is no evidence of biliary duct dilatation. There is evidence for inflammation around the pancreas. Most likely this explain patient's abdominal pain. There is no evidence for diverticulitis. There is no evidence for appendicitis. There is no obstruction or abscess no perforation. The finding was discussed with patient. IV fluid was given. Pain medication given. Case discussed with hospitalist team for admission. Patient's urine showed no signs of infection no signs of UTI. Differential Diagnosis Differential Diagnoses: The differential diagnosis associated with the presentation includes Common duct stone, pancreatitis, diverticulitis, obstruction, abscess, perforation, kidney stone, urinary tract infection Admission/Observation Consideration of admission/observation: Escalation of care including admission/observation considered Positive abdominal pain not controlled likely secondary to ETOH pancreatitis Consult Healthcare Provider Management of the patient was discussed with: Hospitalist Lab Data MDM Lab Attestation statement: I reviewed the patient's lab results. 10/19/22 17:53 10/19/22 17:53 Labs: Lab Results 10/19/22 10/19/22 10/19/22 Range/Units 17:53 17:53 17:53 WBC 11.2 H (4.8-10.8) X10*3/uL RBC 4.64 (4.20-5.50) X10*6/uL Hgb 14.3 D (12.0-16.0) g/dl Hct 42.8 (37.0-47.0) % MCV 92.2 (80.0-98.0) fL MCH 30.8 (27.0-33.0) pg MCHC 33.4 (31.0-35.0) g/dl RDW 14.1 (11.0-16.0) % Plt Count 331 (160-400) X10*3/uL MPV 10.0 (9.4-12.3) fL Immature Gran % (Auto) 0.3 (0.0-0.4) % Neut % (Auto) 85.8 H (45-73) % Lymph % (Auto) 8.4 L (20-40) % [place] % (Auto) 5.0 (2-11) % Eos % (Auto) 0.4 (0-4) % Baso % (Auto) 0.1 (0-2) % Lymph # (Auto) 0.9 L (1.2-4.9) X10*3/uL [place] # (Auto) 0.6 (0.1-1.2) X10*3/uL Eos # (Auto) 0.1 (0.0-0.4) X10*3/uL Baso # (Auto) 0.0 (0.0-0.2) X10*3/uL Abs Immat Gran (auto) 0.03 (0.00-0.03) X10*3/uL Absolute Neuts (auto) 9.6 H (2.0-8.3) x10*3/uL Absolute Nucleated RBC 0.000 (0.0-0.012) X10*3/uL Nucleated RBC % (auto) 0.0 (0.0-0.2) /100WBC Sodium 135 (135-145) mmol/L Potassium 4.1 (3.3-5.1) mmol/L Chloride 101 (96-108) mmol/L Carbon Dioxide 25 (22-29) mmol/L Anion Gap 13 (12-20) BUN 5 L (9-16) mg/dL Creatinine 0.93 (0.5-1.4) mg/dL Estim Creat Clear Calc 88.1 Estimated GFR > 60 Random Glucose 159 H (60-115) mg/dL Calcium 9.2 D (8.4-10.2) mg/dL Magnesium 1.7 (1.6-2.6) mg/dL Total Bilirubin 2.2 H (0.0-1.0) mg/dL AST 70 H (5-31) U/L ALT 58 H (0-31) U/L Alkaline Phosphatase 131 H (39-117) U/L Total Protein 7.5 (6.5-8.0) g/dL Albumin 3.8 (3.5-5.0) g/dL Triglycerides mg/dL Lipase 2083 H (8-78) U/L Beta HCG, Quant < 2 mIU/mL Urine Color Urine Appearance Urine pH (5.0-9.0) Ur Specific [place] (1.005-1.025) Urine Protein (Neg-Trace) mg/dL Urine Glucose (UA) (Negative) mg/dL Urine Ketones (Negative) mg/dL Urine Blood (Negative) Urine Nitrite (Negative) Ur Leukocyte Esterase (Negative) Urine RBC (0-2) /HPF Urine WBC (0-5) /HPF Ur Squamous Epith Cells (0-2) /HPF Urine Bacteria (None Seen) Hyaline Casts (0-2) /LPF COVID-19 ([facility]ODIA) Negative (Negative) COVID-19 Clin Com See Note 10/19/22 10/19/22 Range/Units 17:53 17:55 WBC (4.8-10.8) X10*3/uL RBC (4.20-5.50) X10*6/uL Hgb (12.0-16.0) g/dl Hct (37.0-47.0) % MCV (80.0-98.0) fL MCH (27.0-33.0) pg MCHC (31.0-35.0) g/dl RDW (11.0-16.0) % Plt Count (160-400) X10*3/uL MPV (9.4-12.3) fL Immature Gran % (Auto) (0.0-0.4) % Neut % (Auto) (45-73) % Lymph % (Auto) (20-40) % [place] % (Auto) (2-11) % Eos % (Auto) (0-4) % Baso % (Auto) (0-2) % Lymph # (Auto) (1.2-4.9) X10*3/uL [place] # (Auto) (0.1-1.2) X10*3/uL Eos # (Auto) (0.0-0.4) X10*3/uL Baso # (Auto) (0.0-0.2) X10*3/uL Abs Immat Gran (auto) (0.00-0.03) X10*3/uL Absolute Neuts (auto) (2.0-8.3) x10*3/uL Absolute Nucleated RBC (0.0-0.012) X10*3/uL Nucleated RBC % (auto) (0.0-0.2) /100WBC Sodium (135-145) mmol/L Potassium (3.3-5.1) mmol/L Chloride (96-108) mmol/L Carbon Dioxide (22-29) mmol/L Anion Gap (12-20) BUN (9-16) mg/dL Creatinine (0.5-1.4) mg/dL Estim Creat Clear Calc Estimated GFR Random Glucose (60-115) mg/dL Calcium (8.4-10.2) mg/dL Magnesium (1.6-2.6) mg/dL Total Bilirubin (0.0-1.0) mg/dL AST (5-31) U/L ALT (0-31) U/L Alkaline Phosphatase (39-117) U/L Total Protein (6.5-8.0) g/dL Albumin (3.5-5.0) g/dL Triglycerides 110 mg/dL Lipase (8-78) U/L Beta HCG, Quant mIU/mL Urine Color Dark Yellow Urine Appearance Cloudy Urine pH 5.5 (5.0-9.0) Ur Specific [place] 1.025 (1.005-1.025) Urine Protein 30 (1+) H (Neg-Trace) mg/dL Urine Glucose (UA) Negative (Negative) mg/dL Urine Ketones 15 (Negative) mg/dL Urine Blood Negative (Negative) Urine Nitrite Negative (Negative) Ur Leukocyte Esterase Small (1+) H (Negative) Urine RBC 0-2 (0-2) /HPF Urine WBC 0-5 (0-5) /HPF Ur Squamous Epith Cells 6-10 (0-2) /HPF Urine Bacteria Trace (None Seen) Hyaline Casts 3-5 (0-2) /LPF COVID-19 (ELODIA) (Negative) COVID-19 Clin Com Radiology Impression Discussion of test interpretation with radiology: I have reviewed the radiologist's reading. Radiologist Impression: CT scan shows signs of pancreatitis External Record Review External record reviewed: Inpatient record Medications Administered Discontinued Medications Generic Name Dose Route Start Last Admin Trade Name Freq PRN Reason Stop Dose Admin Hydromorphone HCl 0.5 mg 10/19/22 21:33 10/19/22 21:37 Hydromorphone Hcl 0.5 Mg/0.5 Ml Syringe IVPUSH 10/19/22 21:34 0.5 mg ONCE ONE Administration Protocol Sodium Chloride 1,000 mls @ 999 mls/hr 10/19/22 17:30 10/19/22 20:41 Ns IV 10/19/22 18:30 999 mls/hr .Q1H1M XUAN Administration Iohexol 100 ml 10/19/22 20:26 10/19/22 20:32 Iohexol 350 Mg/Ml 100 Ml Infus..Btl IV 10/19/22 20:27 85 ml ONCE ONE Administration Ketorolac Tromethamine 30 mg 10/19/22 17:28 10/19/22 20:40 Ketorolac Tromethamine 15 Mg/Ml Vial IVPUSH 10/19/22 17:29 30 mg ONCE ONE Administration Ondansetron HCl 4 mg 10/19/22 17:28 10/19/22 20:40 Ondansetron Hcl 4 Mg/2 Ml Vial IVPUSH 10/19/22 17:29 4 mg ONCE ONE Administration Discharge Plan Discharge Clinical Impression: Acute pancreatitis Patient Disposition: Admitted As Inpatient Instructions: Pancreatitis (ED) Prescriptions: No Action oxycodone 5 mg tablet 5 mg PO Q8H PRN (Reason: pain) Qty: 21 0RF ondansetron 4 mg tablet,disintegrating 4 mg PO Q6-8H PRN (Reason: nausea and vomiting) Qty: 10 0RF oxycodone 5 mg tablet 5 mg PO Q8H PRN (Reason: severe pain (scale score 7-10)) Qty: 6 0RF cyclobenzaprine 10 mg tablet 10 mg PO TID PRN (Reason: muscle spasm) Qty: 14 0RF ondansetron 4 mg tablet,disintegrating 4 mg PO Q8H PRN (Reason: nausea and vomiting) Qty: 20 0RF methylprednisolone [Medrol (Abraham)] 4 mg tablets,dose pack 4 mg PO DAILY Qty: 21 0RF cyclobenzaprine 10 mg tablet 10 mg PO TID PRN (Reason: pain) Qty: 14 0RF oxycodone 5 mg tablet 5 mg PO Q8H PRN (Reason: pain) Qty: 7 0RF Rx Instructions: Partial Fill upon patient request. lisinopril 5 mg Tablet 10 mg PO DAILY Qty: 30 2RF Protocol: Hold for SBP< HOLD for SBP < : 90 oxycodone 5 mg tablet 5 mg PO Q6H PRN (Reason: pain) Qty: 20 0RF ibuprofen 600 mg tablet 600 mg PO Q8H PRN (Reason: pain) Qty: 20 0RF
[2022-10-19 20:32] VITALS: BP 152/103; PULSE 88; RESP 20; TEMP 37.1; O2SAT 98
[2022-10-19] MEDS: iohexoL 350 MG/ML 100 ML INFUS..BTL IV (20:32)
[2022-10-19] MEDS: ondansetron HCL 4 MG/2 ML VIAL IVPUSH (20:40)
[2022-10-19] MEDS: Ketorolac Tromethamine 15 MG/ML VIAL 30 MG IVPUSH (20:40)
[2022-10-19] MEDS: 0.9 % Sodium Chloride 1,000 ML 999 ML IV (20:41)
[2022-10-19 21:37] VITALS: RESP 16
[2022-10-19] MEDS: HYDROmorphone HCl 0.5 MG/0.5 ML SYRINGE IVPUSH (21:37)
[2022-10-19 22:27] VITALS: BP 158/91; PULSE 81; RESP 19; TEMP 36.5; O2SAT 97
[2022-10-19 22:35] LABS: Ethanol < 10 mg/dL; Lipase 2066 U/L (8-78)
--- NOTE | 2022-10-19 22:39 | P.HPHOSP_ITS ---
History of Present Illness Date of Service: 10/19/22 Chief Complaint: maggie 37-year-old female with past medical history of hypertension chronic pain on opioids, history of pancreatitis, insomnia presents to the hospital with complaints of abdominal pain. Patient reports the pain started 2 days ago, is epigastric, radiating to the back, pain is 10/10, associated with nausea, no diarrhea constipation, pain is constant, non relieved with [id number] pain medication, exacerbated with taking deep breaths or movement. Patient reports no fever or chills, no urinary symptoms and no lower extremity edema. Patient states that she drinks excessively 1 to 2 times a week but reports no history of withdrawals. Last drink was several nights ago. On arrival to the ED patient hemodynamically stable labs are significant for WBC count of 11.2, total bili of 2.2, AST of 70, ALT of 58, alk-phos of 131, lipase of 2066, UA positive for leukocyte Estrace with some bacteria abdominal pelvic CT shows no peripancreatic fat stranding, with no evidence of acute pancreatitis on imaging Review of Systems Review of Systems: Yes all other systems are reviewed and are negative [facility] Medical History ADHD Bipolar 1 disorder Depression Hypertension Pancreatitis Surgical History Hx of cholecystectomy Status post cholecystectomy Social History Household Members: Significant Other Housing: Apartment Do you presently have visiting nurse or other home services: No Alcohol intake: former Patient Tobacco Use Status: Never used Tobacco Smoked in Last 30 Days: No Second Hand Smoke Exposure: No Use of substances other than those prescribed or required for medical reasons: No Advance Directives: No Advance Directives Information Provided: No service: No Current occupation: rt handed Meds Allergies Allergy/AdvReac Type Severity Reaction Status Date / Time osborne [CHERRIES] Allergy Intermediate UNKNOWN Verified 08/28/21 15:20 red dye [RED DYE] AdvReac Mild DIARRHEA Verified 08/28/21 15:20 Active Medications: Current Medications Acetaminophen (Acetaminophen 325 Mg Tablet) 650 mg PO Q6H PRN PRN Reason: Pain, Mild (Pain Scale 1-3) Enoxaparin Sodium (Enoxaparin Sodium 40 Mg/0.4 Ml Syringe) 40 mg SUBCUT Q24H XUAN Lactated Ringer's (Lr) 1,000 mls @ 200 mls/hr IVCONT .Q5H XUAN Morphine Sulfate (Morphine Sulfate 4 Mg/Ml Cartridge) 4 mg IVPUSH Q4H PRN; Protocol PRN Reason: Pain, Severe (Pain Scale 7-10) Ondansetron HCl (Ondansetron Hcl 4 Mg/2 Ml Vial) 4 mg IVPUSH Q8H PRN PRN Reason: Nausea and Vomiting Sodium Chloride (0.9 % Sodium Chloride Flush 3 Ml Syringe) 3 ml IVFLUSH QSHIFT XUAN Physical Exam Vital Signs and Narrative: Vital Signs: Last Vital Signs Temp 97.7 F 10/19/22 22:27 Pulse 81 10/19/22 22:27 Resp 19 10/19/22 22:27 BP 158/91 H 10/19/22 22:27 Pulse Ox 97 10/19/22 22:27 O2 Del Method Room Air 10/19/22 22:27 BMI result Body Mass Index 35.0 Const: General: cooperative and no acute distress Orientation/consciousness: patient oriented x3 Eyes: General: appearance normal, both eyes and all related structures Resp: Effort & Inspection: normal respiratory effort Auscultation: clear to auscultation bilaterally Cardio: Rate: regular rate Rhythm: regular rhythm GI: Other: tender abdomen on palpation in the epigastric region, no rebound or guarding Palpation (GI): Soft to palpation Auscultation: normal bowel sounds Skin: General skin exam: no rashes or lesions noted Neuro: General: patient oriented x3 Cognition (Neuro): normal cognition Extrem: General: Yes normal to inspection and Yes no pedal edema Results Labs 10/19/22 17:53 10/19/22 17:53 Labs: Laboratory Results - last 24 hr 10/19/22 10/19/22 10/19/22 17:53 17:53 17:53 MCV 92.2 MCH 30.8 MCHC 33.4 RDW 14.1 Plt Count 331 MPV 10.0 Immature Gran % (Auto) 0.3 Neut % (Auto) 85.8 H Lymph % (Auto) 8.4 L [place] % (Auto) 5.0 Eos % (Auto) 0.4 Baso % (Auto) 0.1 Lymph # (Auto) 0.9 L [place] # (Auto) 0.6 Eos # (Auto) 0.1 Baso # (Auto) 0.0 Abs Immat Gran (auto) 0.03 Absolute Neuts (auto) 9.6 H Absolute Nucleated RBC 0.000 Nucleated RBC % (auto) 0.0 Anion Gap 13 Estim Creat Clear Calc 88.1 Estimated GFR > 60 Random Glucose 159 H Calcium 9.2 D Magnesium 1.7 Total Bilirubin 2.2 H AST 70 H ALT 58 H Alkaline Phosphatase 131 H Total Protein 7.5 Albumin 3.8 Triglycerides Lipase 2066 H Beta HCG, Quant < 2 Urine Color Urine Appearance Urine pH Ur Specific [place] Urine Protein Urine Glucose (UA) Urine Ketones Urine Blood Urine Nitrite Ur Leukocyte Esterase Urine RBC Urine WBC Ur Squamous Epith Cells Urine Bacteria Hyaline Casts Ethyl Alcohol < 10 COVID-19 (ELODIA) Negative COVID-19 Clin Com See Note 10/19/22 10/19/22 17:53 17:55 MCV MCH MCHC RDW Plt Count MPV Immature Gran % (Auto) Neut % (Auto) Lymph % (Auto) [place] % (Auto) Eos % (Auto) Baso % (Auto) Lymph # (Auto) [place] # (Auto) Eos # (Auto) Baso # (Auto) Abs Immat Gran (auto) Absolute Neuts (auto) Absolute Nucleated RBC Nucleated RBC % (auto) Anion Gap Estim Creat Clear Calc Estimated GFR Random Glucose Calcium Magnesium Total Bilirubin AST ALT Alkaline Phosphatase Total Protein Albumin Triglycerides 110 Lipase Beta HCG, Quant Urine Color Dark Yellow Urine Appearance Cloudy Urine pH 5.5 Ur Specific [place] 1.025 Urine Protein 30 (1+) H Urine Glucose (UA) Negative Urine Ketones 15 Urine Blood Negative Urine Nitrite Negative Ur Leukocyte Esterase Small (1+) H Urine RBC 0-2 Urine WBC 0-5 Ur Squamous Epith Cells 6-10 Urine Bacteria Trace Hyaline Casts 3-5 Ethyl Alcohol COVID-19 ([facility]ODIA) COVID-19 Clin Com Imaging Radiologist's Impressions: Impressions Abdomen/Pelvis CT 10/19/22 20:43 IMPRESSION: 1. There is no peripancreatic fat stranding, suggestive of acute pancreatitis. Recommend clinical correlation, including correlation with the patient's serum amylase level. No pancreatic necrosis is seen. Small acute fluid collections are noted adjacent to the left anterior pararenal fascia and within the dependent pelvis. 2. There is hepatic steatosis. Fleischner guidelines were followed. Assessment and Plan (1) Acute pancreatitis: Status: Acute (2) History of alcohol abuse: Status: Acute Plan 37-year-old female with past medical history of pancreatitis status post cholecystectomy presents to the hospital with complaints of abdominal pain found to have acute pancreatitis # acute pancreatitis - likely secondary to alcohol abuse - normal triglycerides level, status post cholecystectomy - drinks several times a week excessively - will treat with IV fluids, NPO diet - pain control - monitor resolution of symptoms - advised patient about alcohol abstinence to avoid further complications # history of alcohol abuse - denies any history of withdrawals - will place on CIWA - thiamine and folic acid once able to take p.o. # hypertension - stable - continue antihypertensives # ADHD - continue home medication DVT prophylaxis: Lovenox given patient's acute pancreatitis requiring further management with IV fluids and pain control patient require minimum 2 night inpatient hospital stay for further management and monitoring Time Spent With Patient Time: Total time managing care of this patient today ____ minutes. Quality Stroke Does the patient have a stroke diagnosis?: No VTE Prior VTE?: No VTE Risk Level:: Medical - moderate - high VTE Device Contraindication: Treatment Not Indicated VTE Drug Contraindication: N/A - Med Ordered
[2022-10-19] MEDS: Lactated Ringers 1,000 ML 200 ML IVCONT (23:08)
[2022-10-19 23:24] VITALS: RESP 14
[2022-10-19] MEDS: Morphine Sulfate 4 MG/ML CARTRIDGE IVPUSH (23:24)
[2022-10-19 23:52] VITALS: BP 136/91; PULSE 82; RESP 16; TEMP 36.3; O2SAT 96
[2022-10-20 00:11] VITALS: BMI 37.5
[2022-10-20] MEDS: Lactated Ringers 1,000 ML 200 ML IVCONT ×4 (03:45→20:03)
[2022-10-20] MEDS: Morphine Sulfate 4 MG/ML CARTRIDGE IVPUSH ×5 (04:28→19:58)
[2022-10-20] MEDS: ondansetron HCL 4 MG/2 ML VIAL IVPUSH ×3 (04:31→19:58)
[2022-10-20 06:17] LABS: MANUAL DIFF FLAG NO
[2022-10-20 06:21] LABS: Basophils Percent Auto 0.2 % (0-2); Eosinophils Absolute Auto 0.1 X10*3/uL (0.0-0.4); Eosinophils Percent Auto 2.6 % (0-4); Hematocrit 37.5 % (37.0-47.0); Hemoglobin 11.9 g/dl (12.0-16.0); Imm Gran Abs Auto 0.02 X10*3/uL (0.00-0.03); Imm Gran Pct Auto 0.4 % (0.0-0.4); Lymphocytes Absolute Auto 1.4 X10*3/uL (1.2-4.9); Lymphocytes Percent Auto 27.1 % (20-40); Mean Corpuscular HGB Conc 31.7 g/dl (31.0-35.0); Mean Corpuscular Hemoglobin 30.7 pg (27.0-33.0); Mean Corpuscular Volume 96.9 fL (80.0-98.0); Mean Platelet Volume 10.8 fL (9.4-12.3); Monocytes Absolute Auto 0.4 X10*3/uL (0.1-1.2); Monocytes Percent Auto 7.5 % (2-11); Neutrophils Absolute Auto 3.3 x10*3/uL (2.0-8.3); Neutrophils Percent Auto 62.2 % (45-73); Platelet Count 260 X10*3/uL (160-400); Red Blood Count 3.87 X10*6/uL (4.20-5.50); Red Cell Distribution Width 14.2 % (11.0-16.0); White Blood Count 5.3 X10*3/uL (4.8-10.8)
[2022-10-20 06:46] LABS: Anion Gap 10 (12-20); Blood Urea Nitrogen 6 mg/dL (9-16); Calcium 8.3 mg/dL (8.4-10.2); Carbon Dioxide 27 mmol/L (22-29); Chloride 104 mmol/L (96-108); Creatinine Clr Calc Pharmacy 107.5; Estimated Glomerular Filt Rate > 60; Glucose Random 97 mg/dL (60-115); Potassium 3.9 mmol/L (3.3-5.1); Sodium 137 mmol/L (135-145)
[2022-10-20 07:21] VITALS: BP 132/91; PULSE 71; RESP 16; TEMP 36.1; O2SAT 99
[2022-10-20] MEDS: Thiamine HCL 100 MG TABLET 50 MG PO (07:32)
[2022-10-20] MEDS: Folic Acid 1 MG TABLET PO (07:32)
[2022-10-20] MEDS: Enoxaparin Sodium 40 MG/0.4 ML SYRINGE SUBCUT (07:32)
--- NOTE | 2022-10-20 08:28 | PHA.MEDREC ---
Pharmacy Consult ? Medication Reconciliation Pharmacy has completed the medication reconciliation. Patient had rx bottle of lisinopril ever though no claim history. Sandrine Dc, PharmD
--- NOTE | 2022-10-20 08:39 | HO.PM.IMPN ---
Subjective Subjective Date of Service: 10/20/22 <Alison Prather NP - Last Filed: 10/20/22 09:02> 10/27/22 <Roberto Penny MD - Last Filed: 10/27/22 09:14> Review of Systems Follow up pancretitis still with FIFI abd pain no tremors or withdrawal symptoms <Alison Prather NP - Last Filed: 10/20/22 09:02> Physical Exam Vital Signs: Vital Signs: Last Vital Signs Temp 97 F 10/20/22 07:21 Pulse 71 10/20/22 07:21 Resp 16 10/20/22 07:21 BP 132/91 H 10/20/22 07:21 Pulse Ox 99 10/20/22 07:21 O2 Del Method Room Air 10/20/22 07:21 BMI result Body Mass Index 37.5 <Alison Prather NP - Last Filed: 10/20/22 09:02> Appearing in no acute distress lung sounds are clear to auscultation heart regular rate rhythm, clear S1, S2 positive bowel sounds, abdomen is soft, nontender neuro patient is alert x3, no focal deficits <Alison Prather NP - Last Filed: 10/20/22 09:02> Objective Data Active Medications Acetaminophen (Acetaminophen 325 Mg Tablet) 650 mg PO Q6H PRN PRN Reason: Pain, Mild (Pain Scale 1-3) Enoxaparin Sodium (Enoxaparin Sodium 40 Mg/0.4 Ml Syringe) 40 mg SUBCUT Q24H [facility] Last Admin: 10/20/22 07:32 Dose: 40 mg Documented By: ROSALBA Folic Acid (Folic Acid 1 Mg Tablet) 1 mg PO DAILY [facility] Last Admin: 10/20/22 07:32 Dose: 1 mg Documented By: ROSALBA Lactated Ringer's (Lr) 1,000 mls @ 200 mls/hr IVCONT .Q5H [facility] Last Admin: 10/20/22 03:45 Dose: 200 mls/hr Documented By: JULIANN Morphine Sulfate (Morphine Sulfate 4 Mg/Ml Cartridge) 4 mg IVPUSH Q4H PRN; Protocol PRN Reason: Pain, Severe (Pain Scale 7-10) Last Admin: 10/20/22 04:28 Dose: 4 mg Documented By: JULIANN Ondansetron HCl (Ondansetron Hcl 4 Mg/2 Ml Vial) 4 mg IVPUSH Q8H PRN PRN Reason: Nausea and Vomiting Last Admin: 10/20/22 04:31 Dose: 4 mg Documented By: JULIANN Sodium Chloride (0.9 % Sodium Chloride Flush 3 Ml Syringe) 3 ml IVFLUSH QSHIFT [facility] Last Admin: 10/20/22 07:31 Dose: Not Given Documented By: ROSALBA Non-Admin Reason: IV Running Thiamine HCl (Thiamine Hcl 100 Mg Tablet) 50 mg PO DAILY [facility] Last Admin: 10/20/22 07:32 Dose: 50 mg Documented By: ROSALBA <Alison Prather NP - Last Filed: 10/20/22 09:02> Labs CBC & Chem 7: 10/20/22 05:41 10/20/22 05:41 <Alison Prather NP - Last Filed: 10/20/22 09:02> Labs: Laboratory Results - last 24 hr 10/19/22 10/19/22 10/19/22 17:53 17:53 17:53 MCV 92.2 MCH 30.8 MCHC 33.4 RDW 14.1 Plt Count 331 MPV 10.0 Immature Gran % (Auto) 0.3 Neut % (Auto) 85.8 H Lymph % (Auto) 8.4 L [place] % (Auto) 5.0 Eos % (Auto) 0.4 Baso % (Auto) 0.1 Lymph # (Auto) 0.9 L [place] # (Auto) 0.6 Eos # (Auto) 0.1 Baso # (Auto) 0.0 Abs Immat Gran (auto) 0.03 Absolute Neuts (auto) 9.6 H Absolute Nucleated RBC 0.000 Nucleated RBC % (auto) 0.0 Anion Gap 13 Estim Creat Clear Calc 88.1 Estimated GFR > 60 Random Glucose 159 H Calcium 9.2 D Magnesium 1.7 Total Bilirubin 2.2 H AST 70 H ALT 58 H Alkaline Phosphatase 131 H Total Protein 7.5 Albumin 3.8 Triglycerides Lipase 2066 H Beta HCG, Quant < 2 Urine Color Urine Appearance Urine pH Ur Specific [place] Urine Protein Urine Glucose (UA) Urine Ketones Urine Blood Urine Nitrite Ur Leukocyte Esterase Urine RBC Urine WBC Ur Squamous Epith Cells Urine Bacteria Hyaline Casts Ethyl Alcohol < 10 COVID-19 ([facility]) Negative COVID-19 Clin Com See Note 10/19/22 10/19/22 10/20/22 17:53 17:55 05:41 MCV 96.9 MCH 30.7 MCHC 31.7 RDW 14.2 Plt Count 260 MPV 10.8 Immature Gran % (Auto) 0.4 Neut % (Auto) 62.2 Lymph % (Auto) 27.1 [place] % (Auto) 7.5 Eos % (Auto) 2.6 Baso % (Auto) 0.2 Lymph # (Auto) 1.4 [place] # (Auto) 0.4 Eos # (Auto) 0.1 Baso # (Auto) 0.0 Abs Immat Gran (auto) 0.02 Absolute Neuts (auto) 3.3 Absolute Nucleated RBC 0.000 Nucleated RBC % (auto) 0.0 Anion Gap Estim Creat Clear Calc Estimated GFR Random Glucose Calcium Magnesium Total Bilirubin AST ALT Alkaline Phosphatase Total Protein Albumin Triglycerides 110 Lipase Beta HCG, Quant Urine Color Dark Yellow Urine Appearance Cloudy Urine pH 5.5 Ur Specific [place] 1.025 Urine Protein 30 (1+) H Urine Glucose (UA) Negative Urine Ketones 15 Urine Blood Negative Urine Nitrite Negative Ur Leukocyte Esterase Small (1+) H Urine RBC 0-2 Urine WBC 0-5 Ur Squamous Epith Cells 6-10 Urine Bacteria Trace Hyaline Casts 3-5 Ethyl Alcohol COVID-19 ([facility]) COVID-99designs 10/20/22 05:41 MCV MCH MCHC RDW Plt Count MPV Immature Gran % (Auto) Neut % (Auto) Lymph % (Auto) [place] % (Auto) Eos % (Auto) Baso % (Auto) Lymph # (Auto) [place] # (Auto) Eos # (Auto) Baso # (Auto) Abs Immat Gran (auto) Absolute Neuts (auto) Absolute Nucleated RBC Nucleated RBC % (auto) Anion Gap 10 L Estim Creat Clear Calc 107.5 Estimated GFR > 60 Random Glucose 97 Calcium 8.3 L D Magnesium Total Bilirubin AST ALT Alkaline Phosphatase Total Protein Albumin Triglycerides Lipase Beta HCG, Quant Urine Color Urine Appearance Urine pH Ur Specific [place] Urine Protein Urine Glucose (UA) Urine Ketones Urine Blood Urine Nitrite Ur Leukocyte Esterase Urine RBC Urine WBC Ur Squamous Epith Cells Urine Bacteria Hyaline Casts Ethyl Alcohol COVID-19 ([facility]) COVID-19 Clin Com <Alison Prather NP - Last Filed: 10/20/22 09:02> Assessment and Plan (1) History of alcohol abuse: Status: Acute <Alison Prather NP - Last Filed: 10/20/22 09:02> Assessment and Plan: 37-year-old female with past medical history of pancreatitis status post cholecystectomy presents to the hospital with complaints of abdominal pain found to have acute pancreatitis Acute pancreatitis Secondary to alcohol abuse Drinks several times a week, hard liquor and beer Had quit for 1 year, recently started due to life stress Continue LR, clear liquid diet, pain control pain management History of alcohol abuse Denies any symptoms of withdrawal On CIWA scale Thiamine, folic acid discussed importance of alcohol cessation hypertension stable continue antihypertensives ADHD continue home medication DVT prophylaxis: ? Lovenox Continue hospitalization for treatment of pancreatitis with IV fluids and pain medication <Alison Prather NP - Last Filed: 10/20/22 09:02> Time Spent With Patient Time: Total time managing care of this patient today ____ minutes. <Alison Prather NP - Last Filed: 10/20/22 09:02> Quality Stroke Does the patient have a stroke diagnosis?: No <Alison Prather NP - Last Filed: 10/20/22 09:02> VTE Prior VTE?: No <Alison Prather NP - Last Filed: 10/20/22 09:02> VTE Risk Level:: Medical - moderate - high <Alison Prather NP - Last Filed: 10/20/22 09:02> VTE Device Contraindication: Treatment Not Indicated <Alison Prather NP - Last Filed: 10/20/22 09:02> VTE Drug Contraindication: N/A - Med Ordered <Alison Prather NP - Last Filed: 10/20/22 09:02>
--- NOTE | 2022-10-20 13:32 | MHC.CM.PN ---
met with pt who lives alone maki is independent has no servccies covid vax x 2 dc plan home no servcies
[2022-10-20] MEDS: Acetaminophen 325 MG TABLET 650 MG PO (15:28)
[2022-10-20] MEDS: 0.9 % Sodium Chloride Flush 3 ML SYRINGE IVFLUSH (15:29)
[2022-10-20 16:00] VITALS: BP 138/89; PULSE 80; RESP 17; TEMP 36.6; O2SAT 94
--- NOTE | 2022-10-20 17:03 | PC.NURSE ---
Pt alert and oriented x4. C/O 02/26 ABD pain x2. Medicated with PRN Morphine and Tylenol with good effect. Diet advanced to clears. Pt tolerating it ok. Pt continues on IV LR running at 200cc/hr.
[2022-10-20 19:35] VITALS: BP 156/91; PULSE 71; RESP 18; TEMP 36.5; O2SAT 98
[2022-10-21] MEDS: Magnesium Hydrox/Alum Hydrox 30 ML ORAL.SUSP 15 ML PO (00:22)
[2022-10-21] MEDS: Morphine Sulfate 4 MG/ML CARTRIDGE IVPUSH ×3 (00:22→19:27)
[2022-10-21] MEDS: Lactated Ringers 1,000 ML 200 ML IVCONT ×5 (00:29→19:30)
[2022-10-21 03:36] VITALS: BP 141/95; PULSE 77; RESP 18; TEMP 36.6; O2SAT 99
[2022-10-21 06:03] LABS: Hematocrit 34.3 % (37.0-47.0); Hemoglobin 10.9 g/dl (12.0-16.0); Mean Corpuscular HGB Conc 31.8 g/dl (31.0-35.0); Mean Corpuscular Hemoglobin 30.4 pg (27.0-33.0); Mean Corpuscular Volume 95.5 fL (80.0-98.0); Mean Platelet Volume 10.9 fL (9.4-12.3); Platelet Count 240 X10*3/uL (160-400); Red Blood Count 3.59 X10*6/uL (4.20-5.50); Red Cell Distribution Width 13.7 % (11.0-16.0); White Blood Count 4.5 X10*3/uL (4.8-10.8)
[2022-10-21 06:45] LABS: Anion Gap 11 (12-20); Blood Urea Nitrogen 4 mg/dL (9-16); Calcium 8.3 mg/dL (8.4-10.2); Carbon Dioxide 25 mmol/L (22-29); Chloride 105 mmol/L (96-108); Creatinine Clr Calc Pharmacy 126.8; Estimated Glomerular Filt Rate > 60; Glucose Random 92 mg/dL (60-115); Potassium 3.9 mmol/L (3.3-5.1); Sodium 137 mmol/L (135-145)
[2022-10-21 06:51] LABS: Magnesium 1.6 mg/dL (1.6-2.6)
[2022-10-21 07:07] VITALS: BP 152/90; PULSE 75; RESP 16; TEMP 36.6; O2SAT 97
[2022-10-21 07:41] LABS: Lipase 134 U/L (8-78)
[2022-10-21] MEDS: Enoxaparin Sodium 40 MG/0.4 ML SYRINGE SUBCUT (08:27)
[2022-10-21] MEDS: 0.9 % Sodium Chloride Flush 3 ML SYRINGE IVFLUSH ×2 (08:27→19:32)
[2022-10-21] MEDS: Folic Acid 1 MG TABLET PO (08:28)
[2022-10-21] MEDS: Thiamine HCL 100 MG TABLET 50 MG PO (08:28)
[2022-10-21] MEDS: lisinopriL 10 MG TABLET PO (08:28)
--- NOTE | 2022-10-21 09:50 | P.PNIM_ITS ---
Subjective Subjective Date of Service: 10/21/22 <Alison Prather NP - Last Filed: 10/21/22 10:11> 10/21/22 <Zay Palafox MD - Last Filed: 10/21/22 15:28> Review of Systems Follow up pancretitis still with FIFI abd pain no tremors or withdrawal symptoms <Alison Prather NP - Last Filed: 10/21/22 10:11> Physical Exam Vital Signs: Vital Signs: Last Vital Signs Temp 98 F 10/21/22 07:07 Pulse 75 10/21/22 07:07 Resp 16 10/21/22 07:07 BP 152/90 H 10/21/22 07:07 Pulse Ox 97 10/21/22 07:07 O2 Del Method Room Air 10/21/22 07:07 BMI result Body Mass Index 37.5 <Alison Prather NP - Last Filed: 10/21/22 10:11> Appearing in no acute distress lung sounds are clear to auscultation heart regular rate rhythm, clear S1, S2 positive bowel sounds, abdomen is soft, nontender neuro patient is alert x3, no focal deficits <Alison Prather NP - Last Filed: 10/21/22 10:11> Objective Data Active Medications Acetaminophen (Acetaminophen 325 Mg Tablet) 650 mg PO Q6H PRN PRN Reason: Pain, Mild (Pain Scale 1-3) Last Admin: 10/20/22 15:28 Dose: 650 mg Documented By: TANIKA Al Hydroxide/Mg Hydroxide (Magnesium Hydrox/Alum Hydrox 30 Ml Oral.Susp) 15 ml PO Q4H PRN PRN Reason: heartburn Last Admin: 10/21/22 00:22 Dose: 15 ml Documented By: JULIANN Enoxaparin Sodium (Enoxaparin Sodium 40 Mg/0.4 Ml Syringe) 40 mg SUBCUT Q24H [facility] Last Admin: 10/21/22 08:27 Dose: 40 mg Documented By: RAYNA Folic Acid (Folic Acid 1 Mg Tablet) 1 mg PO DAILY [facility] Last Admin: 10/21/22 08:28 Dose: 1 mg Documented By: RAYNA Lactated Ringer's (Lr) 1,000 mls @ 200 mls/hr IVCONT .Q5H [facility] Last Admin: 10/21/22 05:18 Dose: 200 mls/hr Documented By: JULIANN Lisinopril (Lisinopril 10 Mg Tablet) 10 mg PO DAILY [facility]; Protocol Last Admin: 10/21/22 08:28 Dose: 10 mg Documented By: RAYNA Morphine Sulfate (Morphine Sulfate 4 Mg/Ml Cartridge) 4 mg IVPUSH Q4H PRN; Protocol PRN Reason: Pain, Severe (Pain Scale 7-10) Last Admin: 10/21/22 08:30 Dose: 4 mg Documented By: RAYNA Ondansetron HCl (Ondansetron Hcl 4 Mg/2 Ml Vial) 4 mg IVPUSH Q8H PRN PRN Reason: Nausea and Vomiting Last Admin: 10/20/22 19:58 Dose: 4 mg Documented By: JULIANN Sodium Chloride (0.9 % Sodium Chloride Flush 3 Ml Syringe) 3 ml IVFLUSH QSHIFT [facility] Last Admin: 10/21/22 08:27 Dose: 3 ml Documented By: RAYNA Thiamine HCl (Thiamine Hcl 100 Mg Tablet) 50 mg PO DAILY [facility] Last Admin: 10/21/22 08:28 Dose: 50 mg Documented By: RAYNA <Alison Prather NP - Last Filed: 10/21/22 10:11> Labs CBC & Chem 7: 10/21/22 05:02 10/21/22 05:02 <Alison Prather NP - Last Filed: 10/21/22 10:11> Labs: Laboratory Results - last 24 hr 10/21/22 10/21/22 10/21/22 05:02 05:02 05:02 MCV 95.5 MCH 30.4 MCHC 31.8 RDW 13.7 Plt Count 240 MPV 10.9 Absolute Nucleated RBC 0.000 Nucleated RBC % (auto) 0.0 Anion Gap 11 L Estim Creat Clear Calc 126.8 Estimated GFR > 60 Random Glucose 92 Calcium 8.3 L Magnesium 1.6 Lipase 134 H <Alison Prather NP - Last Filed: 10/21/22 10:11> Microbiology Microbiology Results: Microbiology 10/19/22 18:13 Urine Culture - Final Urine clean catch - Clean Catch Midstream <Alison Prather NP - Last Filed: 10/21/22 10:11> Assessment and Plan (1) History of alcohol abuse: Status: Acute <Alison Prather NP - Last Filed: 10/21/22 10:11> Assessment and Plan: 37-year-old female with past medical history of pancreatitis status post cholecystectomy presents to the hospital with complaints of abdominal pain found to have acute pancreatitis from alcohol use. Quit drinking one year ago and rela psed recently Acute pancreatitis Lipase down to normal level Secondary to alcohol abuse Continue LR, clear liquid diet, pain control SOB likely from pain cxr ordered to r/o lung pathology History of alcohol abuse Denies any symptoms of withdrawal On CIWA scale Thiamine, folic acid discussed importance of alcohol cessation hypertension stable continue antihypertensives ADHD continue home medication DVT prophylaxis: ? Lovenox Continue hospitalization for treatment of pancreatitis with IV fluids and pain medication <Alison Prather NP - Last Filed: 10/21/22 10:11> Time Spent With Patient Time: Total time managing care of this patient today ____ minutes. <Alison Prather NP - Last Filed: 10/21/22 10:11> Quality Stroke Does the patient have a stroke diagnosis?: No <Alison Prather NP - Last Filed: 10/21/22 10:11> VTE Prior VTE?: No <Alison Prather NP - Last Filed: 10/21/22 10:11> VTE Risk Level:: Medical - moderate - high <Alison Prather NP - Last Filed: 10/21/22 10:11> VTE Device Contraindication: Treatment Not Indicated <Alison Prather NP - Last Filed: 10/21/22 10:11> VTE Drug Contraindication: N/A - Med Ordered <Alison Prather NP - Last Filed: 10/21/22 10:11>
[2022-10-21] MEDS: Famotidine/PF 20 MG/2 ML VIAL IVPUSH ×2 (11:08→19:27)
[2022-10-21] MEDS: oxyCODONE HCl Immed Release 5 MG TABLET PO ×2 (11:09→15:12)
[2022-10-21] MEDS: ondansetron HCL 4 MG/2 ML VIAL IVPUSH (11:09)
[2022-10-21] MEDS: LORazepam 2 MG/ML VIAL 1 MG IVPUSH (13:29)
[2022-10-21] MEDS: Acetaminophen 325 MG TABLET 650 MG PO (15:17)
[2022-10-21 15:34] VITALS: BP 157/99; PULSE 80; RESP 18; TEMP 36.6; O2SAT 96
[2022-10-21 19:34] VITALS: BP 159/99; PULSE 76; RESP 18; TEMP 36.8; O2SAT 94
[2022-10-21] MEDS: Zolpidem Tartrate 5 MG TABLET PO (23:03)
[2022-10-22 03:58] VITALS: BP 161/96; PULSE 71; RESP 18; TEMP 36.6; O2SAT 96
[2022-10-22 07:00] VITALS: BP 150/90; PULSE 76; RESP 18; TEMP 36.6; O2SAT 97
[2022-10-22] MEDS: oxyCODONE HCl Immed Release 5 MG TABLET PO (07:24)
[2022-10-22] MEDS: lisinopriL 10 MG TABLET PO (07:24)
[2022-10-22] MEDS: Folic Acid 1 MG TABLET PO (07:25)
[2022-10-22] MEDS: Famotidine/PF 20 MG/2 ML VIAL IVPUSH (07:25)
[2022-10-22] MEDS: 0.9 % Sodium Chloride Flush 3 ML SYRINGE IVFLUSH (07:25)
[2022-10-22] MEDS: Thiamine HCL 100 MG TABLET 50 MG PO (07:25)
[2022-10-22] MEDS: Enoxaparin Sodium 40 MG/0.4 ML SYRINGE SUBCUT (07:26)
[2022-10-22 08:33] LABS: Alanine Aminotransferase 38 U/L (0-31); Albumin Level 3.3 g/dL (3.5-5.0); Alkaline Phosphatase 120 U/L (39-117); Aspartate Amino Transferase 37 U/L (5-31); Bilirubin Direct 0.4 mg/dL (0.0-0.5); Total Protein 6.4 g/dL (6.5-8.0)
[2022-10-22] MEDS: Ibuprofen 400 MG TABLET PO (11:37)
[2022-10-22] MEDS: Omeprazole 20 MG CAPSULE.DR PO (13:31)
--- NOTE | 2022-10-22 14:01 | PM.DS ---
DS: Providers Provider Date of Service: 10/22/22 Date of admission: 10/19/22 22:29 Primary care physician: Georges Lundberg III, MD DS: Diagnosis Discharge Diagnosis (1) History of alcohol abuse: Status: Acute DS: Summary Hospital Course Hospital Course: Date of Service: 10/19/22 Chief Complaint: abdpain ?37-year-old female with past medical history of hypertension chronic pain on opioids, history of pancreatitis, insomnia presents to the hospital with complaints of abdominal pain.? Patient reports the pain started 2 days ago, is epigastric, radiating to the back, pain is 10/10, associated with nausea, no diarrhea constipation, pain is constant, non relieved with [id number] pain medication, exacerbated with taking deep breaths or movement.? Patient reports no fever or chills, no urinary symptoms and no lower extremity edema.? Patient states that she drinks excessively 1 to 2 times a week but reports no history of? withdrawals.? Last drink was several nights ago. On arrival to the ED patient hemodynamically stable ?labs are significant for WBC count of 11.2, total bili of 2.2, AST of 70, ALT of 58, alk-phos of 131, lipase of 2066, UA positive for leukocyte Estrace with some bacteria abdominal pelvic CT shows no peripancreatic fat stranding, with no evidence of acute pancreatitis on imaging. Hospital course. 37-year-old female with past medical history of pancreatitis status post cholecystectomy presents to the hospital with complaints of abdominal pain found to have elevated lipase, although CT abdomen showed no evidence of acute pancreatitis patient was admitted to medical floor with a diagnosis of acute on chronic pancreatitis from alcohol use, Quit drinking one year ago and relapsed recently, patient was treated with IV fluids analgesics repeat lipase normalized patient diet was gradually advanced that she is tolerating well she complains of epigastric pain soon after eating likely due to gastritis patient has been started on Prilosec 20 mg daily has been strongly recommended to abstain from alcohol, she is status post cholecystectomy triglycerides of within normal range prior autoimmune workup for pancreatitis was negative. Recommended outpatient follow-up with Gastroenterology if noted to have recurrent or worsening abdominal pain hypertension stable continue antihypertensives ADHD continue home medication Time Spent with Patient Time attestation: Total time managing care of this patient today ____ minutes. Discharge coordination time: Greater than 30 minutes Quality: Safe Use of Opioids Does Pt have an Active Cancer Diagnosis on the Problem List?: No Quality: Stroke Does the patient have a stroke diagnosis?: No Physical Exam Vital Signs: Vital Signs: Last Vital Signs Temp 98 F 10/22/22 07:00 Pulse 76 10/22/22 07:00 Resp 18 10/22/22 07:00 BP 150/90 H 10/22/22 07:00 Pulse Ox 97 10/22/22 07:00 O2 Del Method Room Air 10/22/22 07:00 BMI result Body Mass Index 37.5 Const: Other: General awake alert x3 no acute distress. Neck is supple no JVD. CVS regular rate rhythm, Respiratory lungs clear to auscultation, no respiratory distress, no wheeze, no rhonchi. Gastrointestinal abdomen soft, mild epigastric tenderness to palpation, bowel sounds audible, no guarding , no rigidity. Extremities no edema. Neuro nonfocal Skin no rash DS: Data Data Completed and Pending Labs on day of discharge: Laboratory Results - last 24 hr 10/22/22 08:10 Total Bilirubin 1.0 Direct Bilirubin 0.4 AST 37 H ALT 38 H Alkaline Phosphatase 120 H Total Protein 6.4 L Albumin 3.3 L Discharge Plan Discharge Anticipated Discharge Date/Time: 10/22/22 13:49 Patient Disposition: Home, Self-Care Discharge Diagnosis: Abdominal pain Referrals: Georges Lundberg III, MD [Primary Care Provider] - 1 Week Discharge Medications: New omeprazole 20 mg capsule,delayed release(DR/EC) 20 mg PO DAILY Qty: 30 0RF Continued lisinopril 5 mg Tablet 10 mg PO DAILY Qty: 30 2RF Protocol: Hold for SBP< HOLD for SBP < : 90 multivitamin Tablet 1 tab PO DAILY melatonin 10 mg Tablet 10 mg PO BEDTIME Discharge Orders: Discharge Order (Routine); Ordered 10/22/22 Ordered By: Joy Thomas Diet: Advance to usual diet Activity on Discharge: As tolerated Stand Alone Forms: Patient Portal Discharge page, Work/School Release Care Plan Goals: Abdominal pain, likely due to chronic pancreatitis and gastritis recommend to take Prilosec 1 tablet daily and strongly recommend to abstain from alcohol Recommend outpatient follow-up with Gastroenterology Health Concerns: Take all home medication as before. Plan of Treatment: Outpatient follow-up with primary care physician and Gastroenterology if continue to have abdominal pain Assessment: As above Patient Instructions: Pancreatitis (ED)
== END 2022-10-22 14:21 | disposition home or self-care (01) | DRG 282 ==
LOC: HO.ED 22:22 → HO.EDOVER 22:36 → HO.S3 22:43
PROVIDERS: Nurse Practitioner Acute Care; Physician Assistant; Admitting Provider Internal Medicine; Emergency Provider Emergency Medicine Emergency Medical Services; PCP Internal Medicine; Visit Provider Hospitalist
DX: K85.20 Alcohol induced acute pancreatitis without necrosis or infection (principal); F10.10 Alcohol abuse, uncomplicated; K86.0 Alcohol-induced chronic pancreatitis; F31.9 Bipolar disorder, unspecified; I10 Essential (primary) hypertension; G89.29 Other chronic pain; F90.9 Attention-deficit hyperactivity disorder, unspecified type; Z20.822 Contact with and (suspected) exposure to COVID-19; Z79.891 Long term (current) use of opiate analgesic; Z79.899 Other long term (current) drug therapy
CPT/HCPCS: 36415; 71045; 74177; 80048; 80053; 80076; 81001; 82077; 83690; 83735; 84478; 84702; 85025; 85027; 87086; 87635; 99221; 99285; J1170; J1650; J1885; J2060; J2270; J2405; Q9967